=== PATIENT | male | born 1990 | race Caucasian/White ===

== ENCOUNTER 2024-01-20 22:05 | Emergency (ER) | payer MEDICAID, SELFPAY ==
[2024-01-20 22:08] VITALS: BP 136/96; PULSE 92; RESP 18; TEMP 35.9; O2SAT 97; BMI 38.5
--- NOTE | 2024-01-20 22:36 | EX.ED.DYSGE1 ---
HPI History of Present Illness Chief Complaint: Cold Sx Informant: patient Onset/Context/Timing Onset: Days (3) Context: Sudden Onset Timing: Continuous Quality: Burning Location: Abdomen Worsened by: Nothing Relieved by: Nothing Narrative Narrative: Patient presents with abdominal pain, nausea, diarrhea, and subjective fevers that has been getting worse over the past 3 days. Patient states his pain feels like a burning sensation in his lower abdomen. Patient states nothing makes it better and nothing makes it worse. Patient states he felt like he was having a fever at home but did not take his temperature. Patient also admits to a sore throat and some blurry vision. Patient admits to cough and some shortness of breath. Patient also admits to mild headache. [facility] Medical History (Updated 01/21/24 @ 00:[address] Macario Villanueva DO) Traumatic brain injury Allergy/AdvReac Type Severity Reaction Status Date / Time aspirin AdvReac Intermediate NOSEBLEEDS Verified 01/20/24 22:08 buspirone (From BuSpar) AdvReac Intermediate HALLUCINATI Verified 01/20/24 22:08 ONS acetaminophen (From Tylenol) AdvReac NOSEBLEEDS Verified 01/20/24 22:08 Surgical History Hx of eye surgery Social History Smoking Status: Unknown if ever smoked ROS ROS ED Constitutional Constitutional ED: Reports fever(s) and subjective; Denies chills Eyes Eyes: Reports blurry vision; Denies diplopia ENT ENT ED: Reports sore throat; Denies rhinorrhea Cardiovascular Cardiovascular: Reports chest pain; Denies palpitations Respiratory/Chest Respiratory/Chest: Reports cough and dyspnea Gastrointestinal Gastrointestinal: Reports abdominal pain and diarrhea; Denies nausea or vomiting Genitourinary Genitourinary ED: Denies dysuria or hematuria Musculoskeletal Musculoskeletal: Denies back pain or neck pain Integumentary Denies abscess or rash Neurologic Neurologic: Reports headache(s); Denies weakness Allergic/Immunologic Allergic/Immunologic ED: Denies mouth swelling or urticaria EXAM Physical Exam Const Vital Signs: 01/20/24 22:08 01/20/24 23:29 01/20/24 23:35 Temperature 96.6 F L Temperature Source Temporal Pulse Rate 92 68 Respiratory Rate 18 16 Respiratory Effort Normal Respiratory Pattern Normal Blood Pressure 136/96 H 122/58 H Blood Pressure Mean 109 79 Pulse Ox 97 96 Oxygen Delivery Method Room Air Room Air Positive well nourished and well developed General Appearance ED: well developed and NAD HEENT Reports moist mucous membranes Neck supple and no JVD Resp normal respiratory effort and clear to auscultation bilaterally Cardio regular rate and regular rhythm GI non-distended Palpation: soft and tender LLQ and LUQ; Negative for guarding or rebound tenderness present Neuro oriented x3, CN's II-XII intact bilaterally and no sensory deficits noted Sensorium / Orientation: alert Motor Exam: strength 5/5 throughout Psych mental status grossly normal MDM MDM MDM Narrative Medical decision making narrative: Differential diagnosis includes pneumonia, viral illness, gastroenteritis, urinary tract infection, and pyelonephritis. CBC will be obtained to assess for leukocytosis and anemia. Basic metabolic profile will be obtained to assess for electrolyte abnormality and renal function. Urinalysis will be obtained to assess for urinary tract infection or hematuria. COVID-19, influenza, and RSV PCR will be obtained to assess for viral illness. Chest x-ray will be obtained to assess for pneumonia. Lab Data Attestation: I reviewed the patient's lab results. Lab results narrative: CBC was reviewed and was within normal limits. Basic metabolic profile was reviewed and was within normal limits. Urinalysis was reviewed. There is no evidence of urinary tract infection or hematuria. COVID-19 PCR was reviewed and was negative. Influenza PCR was reviewed and was negative for influenza A and influenza B. RSV PCR was reviewed and was negative. Labs: Laboratory Results - last 24 hr 01/20/24 01/20/24 23:19 23:33 WBC 8.3 RBC 4.90 Hgb 14.0 Hct 42.6 MCV 86.9 MCH 28.6 MCHC 32.9 RDW Std Deviation 39.3 RDW Coeff of Derik 12.3 Plt Count 240 MPV 10.4 Immature Gran % (Auto) 0.400 Neut % (Auto) 44.0 L Lymph % (Auto) 34.2 Knox % (Auto) 18.3 H Eos % (Auto) 2.1 Baso % (Auto) 1.0 Absolute Neuts (auto) 3.7 Absolute Lymphs (auto) 2.83 Nucleated RBC % 0 Differential Comment SCANNED Sodium 139 Potassium 3.5 Chloride 109 H Carbon Dioxide 25.0 Anion Gap 5 BUN 11 Creatinine 1.12 Estim Creat Clear Calc 111.85 Est GFR (MDRD) Af Amer 97 Est GFR (MDRD) Non-Af 80 BUN/Creatinine Ratio 9.8 L Glucose 100 Calcium 8.4 L Urine Color Yellow Urine Clarity Clear Urine pH 6.0 Ur Specific [place] 1.025 Urine Protein Negative Urine Glucose (UA) Normal Urine Ketones Negative Urine Occult Blood Negative Urine Nitrite Negative Urine Bilirubin Negative Urine Urobilinogen Normal Ur Leukocyte Esterase Negative Urine RBC 0 SEEN Urine WBC 0 SEEN Ur Squamous Epith Cells 0 SEEN Urine Bacteria 0 SEEN Urine Mucus 0 SEEN Radiography Chest X-Ray - ED: 2 View, Read by ED Physician, Read by Radiologist and No Acute Disease Diagnostic Testing: PA and lateral chest x-ray was obtained. There are 2 views. On my independent interpretation, lung black are clear. There is normal cardiac silhouette. Bony thorax is normal. There is no acute process noted. Radiologist also interpreted the x-ray and agrees. Treatment and Re-Evaluation :: Patient was given IV fluids and Zofran. Patient was feeling better on reevaluation. Patient was advised of his findings. Patient was instructed to continue Tylenol and ibuprofen as needed for any aches or fevers. Patient was instructed to follow-up with his primary care physician in 5 to 7 days. Patient understood and was agreeable with the plan. All questions were answered. Discharge Plan Triage Chief Complaint: Cold Sx ED Provider: Macario Villanueva Dx/Rx/DC Orders Clinical Impression: Viral illness, Viral upper respiratory tract infection Instructions: ED Viral Syndrome (Adult), ED URI, Viral, No Abx (Adult) Primary Care Provider: JACKSON VELASQUEZ Referrals: JACKSON VELASQUEZ [Other] - 5-7 Days Print Language: Upper Sorbian Disposition Disposition: Home, Self Care
[2024-01-20] MEDS: Ondansetron 4 MG/2 ML Vial IV (23:25)
[2024-01-20] MEDS: 0.9% Normal Saline (1000mL) 1,000 ML 1000 ML IV (23:25)
[2024-01-20 23:26] LABS: Absolute Lymphocyte Count 2.83 X10^3/uL (0.83-4.51); Absolute Neutrophil Count 3.7 X10^3/uL (2.0-7.7); Basophil# 0.08 X10^3/uL; Eosinophil# 0.17 X10^3/uL; Eosinophils% 2.1 % (0-5); Hematocrit 42.6 % (40-54); Lymphocyte # 2.83 X10^3/ul (0.83-4.51); Lymphocyte % 34.2 % (19-41); Mean Corp Hgb Conc 32.9 g/dL (32-36); Mean Corpuscular Hgb 28.6 pg (27.0-32.0); Mean Corpuscular Volume 86.9 fL (80-94); Mean Platelet Vol. 10.4 fl (6.2-12.0); Monocyte# 1.51 X10^3/uL; Monocyte% 18.3 % (0-10); NRBC Flagged by Analyzer 0 % (0-5); Neutrophil # 3.65 X10^3/uL (2.7-7.7); POSITIVE DIFFERENTIAL YES; Platelet Count 240 K/mm3 (150-450); RBC Distribution Width CV 12.3 % (11.6-14.6); RBC Distribution Width SD 39.3 fl (35.1-43.9); White Blood Count 8.3 K/mm3 (4.4-11.0)
[2024-01-20 23:35] VITALS: BP 122/58; PULSE 68; RESP 16; O2SAT 96
[2024-01-20 23:37] LABS: Bacteria 0 SEEN /hpf (None Seen); Mucous, Urine 0 SEEN /hpf (<or=2+); Red Blood Cells-Urine 0 SEEN /hpf (0-5); Squamous Epithelial Cells - UA 0 SEEN /hpf (0-5); White Blood Cells 0 SEEN /hpf (0-5)
[2024-01-20 23:43] LABS: Anion Gap 5 (5-15); BUN 11 mg/dL (7-18); BUN/Creat Ratio 9.8 RATIO (10-20); Calcium,Total 8.4 mg/dL (8.5-10.1); Chloride 109 mmol/L (98-107); Creatinine, Serum 1.12 mg/dL (0.70-1.30); EST Glomerular Filtration Rate 80 mL/min (>60); Est Glom Filt Rate - Afr Amer 97 mL/min (>60); Estimated Creatinine Clearance 111.85 ml/min; Glucose 100 mg/dL (74-106); Potassium 3.5 mmol/L (3.5-5.1); Sodium Level 139 mmol/L (136-145)
--- NOTE | 2024-01-20 23:45 | RAD_ITS ---
INDICATION: Cough EXAMINATION/TECHNIQUE: X-RAY - XR Chest 2 Views COMPARISON: No relevant prior comparison study available FINDINGS: LINES/DEVICES: None. LUNGS: No consolidation, edema or effusion. No pneumothorax. MEDIASTINUM AND CARDIOVASCULAR STRUCTURES: Cardiac silhouette not enlarged. Central airways and mediastinal contour are unremarkable. BONES AND SOFT TISSUES: Unremarkable. RAD/Chest PA and Lateral IMPRESSION: No radiographic evidence of acute cardiopulmonary disease. Electronically Signed: Lori Shore MD at 0:31 EDT ,
[2024-01-20 23:53] LABS: Differential Indicated SCAN CRITERIA MET
[2024-01-20 23:54] LABS: Differential Comment SCANNED
[2024-01-20 23:58] LABS: Color, Urine Yellow (Yellow); Glucose, Dipstick Normal (Normal); Ketone-Dipstick Negative (Negative); Leukocyte Esterase-Dipstick Negative /ul (Negative); Nitrite-Dipstick Negative (Negative); Occult Blood-Urine Negative /ul (Negative); Protein-Dipstick Negative (Negative); Specific Gravity, Urine 1.025 (1.002-1.030); Urine Bilirubin Dipstick Negative (Negative); Urine Clarity Clear (Clear); Urine Urobilinogen Normal (Normal)
[2024-01-21 01:03] VITALS: BP 113/72; PULSE 68; RESP 15; TEMP 36.2; O2SAT 99
== END 2024-01-21 01:04 | disposition home or self-care (01) ==
PROVIDERS: Emergency Provider Emergency Medicine; Visit Provider Emergency Medicine
DX: J06.9 Acute upper respiratory infection, unspecified (principal); R19.7 Diarrhea, unspecified; R11.0 Nausea; R10.9 Unspecified abdominal pain; R51.9 Headache, unspecified; B34.9 Viral infection, unspecified
CPT/HCPCS: 71046; 80048; 81001; 85025; 87631; 96361; 96374; 99282; A4216; J2405

== ENCOUNTER 2024-10-31 22:01 | Emergency (ER) | payer MEDICAID, SELFPAY ==
[2024-10-31 22:02] VITALS: BP 130/86; PULSE 73; RESP 16; TEMP 36.7; O2SAT 98; BMI 37.8
--- NOTE | 2024-10-31 22:20 | EDS_ITS ---
HPI History of Present Illness Chief Complaint: Abscess Informant: patient Narrative Narrative: Healthy 34-year-old noticed a painful swollen area right side of his face that he thinks may be an ingrown hair. No fevers, chills, systemic symptoms. He states that he noticed it this morning, squeezed it and got a small amount of pus out of it, and it has refilled throughout the day. PFSH PFS Medical History Traumatic brain injury Home Medications ?Medication ?Instructions ?Recorded ?Last Taken ?Type mupirocin 2 % topical ointment 1 applic topical BID MA N skin 10/31/24 Unknown Rx infection #15 grams Allergy/AdvReac Type Severity Reaction Status Date / Time aspirin AdvReac Intermediate NOSEBLEEDS Verified 10/31/24 22:04 buspirone (From BuSpar) AdvReac Intermediate HALLUCINATI Verified 10/31/24 22:04 ONS acetaminophen (From Tylenol) AdvReac NOSEBLEEDS Verified 10/31/24 22:04 Surgical History Hx of eye surgery Social History Smoking Status: Never smoker ROS ROS ED Constitutional Constitutional ED: Denies chills or fever(s) Eyes Eyes: Denies change in vision ENT ENT ED: Denies ear pain or sore throat Respiratory/Chest Respiratory/Chest: Denies dyspnea Gastrointestinal Gastrointestinal: Denies nausea or vomiting Integumentary Reports abscess Neurologic Neurologic: Denies headache(s), paresthesias or weakness EXAM Physical Exam Const Vital Signs: 10/31/24 22:02 Temperature 98.0 F Temperature Source Temporal Pulse Rate 73 Respiratory Rate 16 Blood Pressure 130/86 H Blood Pressure Mean 100 Pulse Ox 98 Oxygen Delivery Method Room Air Positive well nourished and well developed Constitutional Narrative: Well-appearing in no distress General Appearance ED: well developed and NAD HEENT HEENT Narrative: [place] is shaved flush with the skin. On the right cheek within this area, there is a small tender pustule with a small amount of surrounding erythema, there is no induration or fluctuance and I do not feel a subcutaneous capsule to suggest an abscess. Eyes PERRL and EOMs intact bilaterally Neck no lymphadenopathy and supple Resp normal respiratory effort Extremity normal to inspection Neuro oriented x3, CN's II-XII intact bilaterally and no sensory deficits noted Motor Exam: strength 5/5 throughout Psych mental status grossly normal Skin Skin Narrative: No rashes. Small pustule right side of face see above. MDM MDM MDM Narrative Medical decision making narrative: Patient really wants me to perform an incision and drainage with a needle. I told him I think this is simply a pustule he thinks it is an ingrown hair, I alicia d him regardless if he was getting stuff out when he squeezed it, then he could continue doing that and use topical treatments, and we did a simple incision and drainage see the procedure note. Prescribed mupirocin and advised with regards to use. Procedures Other Procedures Procedure(s): Simple incision and drainage right facial pustule: Verbal consent obtained, timeout performed. Sterile prep with isopropanol, followed by local anesthesia with sterile freeze spray just until in local ED started to turn w alexis, and then the pustule was stabbed with a 21-gauge needle, superficially only. Scant amount of blood, no pus, gently squeezed and no other pus. Dressed with a bandage, nursing to redress with me present after patient feels prescription here. Tolerated well no complications. Discharge Plan Triage Chief Complaint: Abscess ED Provider: Junior Ovalle Dx/Rx/DC Orders Clinical Impression: Skin pustule Instructions: ED Abscess Incision And Drainage Prescriptions: New mupirocin 2 % ointment 1 applic topical BID PRN (Reason: skin infection) Qty: 15 0RF Primary Care Provider: NOT,DEFINED Referrals: Doctor,Your [Non-Staff] - 3-5 Days if not improving Print Language: Dominican Disposition Disposition: Home, Self Care
[2024-10-31 23:42] VITALS: BP 139/76; PULSE 75; RESP 18; TEMP 36.7; O2SAT 97
== END 2024-10-31 23:45 | disposition home or self-care (01) ==
PROVIDERS: Emergency Provider Emergency Medicine; Visit Provider Emergency Medicine
DX: L02.01 Cutaneous abscess of face (principal)
CPT/HCPCS: 10060; 99282

== ENCOUNTER 2024-12-04 14:13 | Emergency (ER) | payer MEDICAID, SELFPAY ==
[2024-12-04 14:16] VITALS: BP 144/89; PULSE 108; RESP 20; TEMP 36.4; O2SAT 98; BMI 36.0
--- NOTE | 2024-12-04 14:28 | EX.ED.DYSGE1 ---
HPI History of Present Illness Chief Complaint: Cold Sx Narrative Narrative: 34-year-old male past medical history of TBI presents with upper respiratory infection type symptoms that has had for the last day. He states he said nasal congestion as well as occasional cough. He usually has a nasal steroid, but is in town visiting his girlfriend and has been here for 2 weeks so he does not have it with him. He complains of sinus pressure with headache, and has had occasional diarrhea as well. His main concerns are his nasal congestion, cough, and the diarrhea. He is taking Pepto-Bismol to help with the diarrhea as well. [facility] Medical History Traumatic brain injury Home Medications ?Medication ?Instructions ?Recorded ?Last Taken ?Type mupirocin 2 % topical ointment 1 applic topical BID PRN skin 10/31/24 Unknown Rx infection #15 grams triamcinolone acetonide 55 mcg 1 spray intranasal DAILY #16.9 mL 12/04/24 Unknown Rx nasal spray aerosol (Nasacort) Allergy/AdvReac Type Severity Reaction Status Date / Time aspirin AdvReac Intermediate NOSEBLEEDS Verified 12/04/24 14:15 buspirone (From BuSpar) AdvReac Intermediate HALLUCINATI Verified 12/04/24 14:15 ONS acetaminophen (From Tylenol) AdvReac NOSEBLEEDS Verified 12/04/24 14:15 Surgical History Hx of eye surgery Social History Smoking Status: Never smoker ROS ROS ED ROS Narrative Review of systems positive for nasal congestion, occasional cough, and diarrhea. Denies fevers or chills. Does endorse occasional body aches and burning of bilateral hands and arms. Denies other symptoms. EXAM Physical Exam Narrative Exam Narrative: Afebrile. Vital signs noted. Nontoxic-appearing. HEENT examination shows mild nasal congestion with tenderness to percussion of the sinuses, but no noted purulent discharge. Cardiovascular examination reveals mild tachycardia. Abdomen soft nontender with normoactive bowel sounds. Lungs are clear to auscultation bilaterally without wheezing, no stridor of the neck. Neurological examination is nonfocal and nonlateralizing. Const Vital Signs: 12/04/24 14:16 12/04/24 15:44 Temperature 97.6 F L Temperature Source Oral Pulse Rate 108 H Respiratory Rate 20 H Respiratory Pattern Normal Blood Pressure 144/89 H Blood Pressure Mean 107 Pulse Ox 98 Oxygen Delivery Method Room Air MDM MDM MDM Narrative Medical decision making narrative: Differential diagnosis does include viral syndrome versus sinusitis versus URI. I do not feel that he requires any blood work or imaging currently. Pulse ox is 98% on room air without evidence of hypoxia. I do not feel that he needs antibiotics because he is only had 1 day of symptoms of nasal congestion and runny nose. Patient states that he usually takes the nasal steroid but does not have it with him. I told him that although it is [id number] I will write him a prescription for nasal steroid to use once daily. He can take other [id number] decongestants as well. As his symptoms have been ongoing for a day, with the suspicion of influenza, he has agreed to respiratory swab. He states the last time he was here, it was too uncomfortable for him and he would like to have it performed himself under the supervision of the RN. Should he be positive for influenza, I do feel that he is within the window to treat with antiviral medication. I reviewed his respiratory swabs and he is negative for COVID, influenza, and RSV. At this point in time, I feel he can be discharged to follow-up. Return instructions to the emergency department reviewed. I did discuss with him that antibiotics are not required at this time as his symptoms have only been ongoing for a day, and that sinusitis is usually treated after 2 weeks of symptoms with no improvement. Disposition is discharged home, in stable condition. History & Record Review Discussion w/independent historian: Patient Discharge Plan Triage Chief Complaint: Cold Sx ED Provider: Aaron Coronel Dx/Rx/DC Orders Clinical Impression: Nasal congestion, Cough Instructions: ED URI, Viral, No Abx (Adult) Prescriptions: New triamcinolone acetonide [Nasacort] 55 mcg aerosol,spray 1 spray intranasal DAILY Qty: 16.9 0RF Rx Instructions: administer into each nostril No Action mupirocin 2 % ointment 1 applic topical BID PRN (Reason: skin infection) Qty: 15 0RF Primary Care Provider: JACKSON VELASQUEZ Referrals: JACKSON VELASQUEZ [Other] - 1 Week if not improving Activity Restrictions/Additional Instructions: Follow-up with your primary care provider. Nasal steroids as directed. Print Language: [place] Islander Disposition Disposition: Home, Self Care Discharge Date/Time: 12/04/24 15:45
== END 2024-12-04 15:45 | disposition home or self-care (01) ==
PROVIDERS: Emergency Provider Emergency Medicine; Visit Provider Emergency Medicine
DX: R09.81 Nasal congestion (principal); R05.9 Cough, unspecified; R20.8 Other disturbances of skin sensation; R19.7 Diarrhea, unspecified; R51.9 Headache, unspecified; Z87.820 Personal history of traumatic brain injury
CPT/HCPCS: 87631; 99282

== ENCOUNTER 2025-07-13 14:23 | Emergency (ER) | payer MEDICAID, SELFPAY ==
[2025-07-13 14:23] VITALS: BP 124/79; PULSE 99; RESP 16; TEMP 36.1; O2SAT 98; BMI 34.6
--- OUTSIDE RECORDS SUMMARY | 2025-07-13 14:55 | XMS RPT_ITS | CCD ---
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 luminal stenosis. LAD: (Left Anterior Descending Coronary Artery) Normal size vessel, which wraps around the apex. Direct epicardial course of the mid LAD without intramyocardial extension. Gives rise to 2 diagonal branches and small septal branches. LAD Stenosis and Plaque: No evidence of plaque. No plaque or luminal stenosis. RAMUS INTERMEDIUS: Small size vessel. RI Stenosis and Plaque: No evidence of plaque. -distal segments are not well visualized. LCX: (Left Circumflex Coronary Artery) Normal size vessel, which is non-dominant. Gives rise to 1 obtuse marginal branch. LCX Stenosis and Plaque: No evidence of plaque. No plaque or luminal stenosis. -distal segments and branches are not well visualized. RCA: (Right Coronary Artery) Normal size vessel, which is dominant.. Gives rise to a conus branch, SA cathryn branch, 1 acute marginal branch. In its distal segment it bifurcates into the PDA and PV branch. RCA Stenosis and Plaque: No evidence of plaque. No plaque or luminal stenosis. -distal segments and branches are not well visualized. limited upper ABDOMEN: unremarkable Gas Tester (topogram) images: No additional findings. IMPRESSION IMPRESSION: NO EVIDENCE OF ATHEROSCLEROTIC CHANGES OR LUMINAL STENOSIS OF THE CORONARY ARTERIES -distal segments and branches are not well visualized. CAD-RADS 0: No plaque or luminal stenosis. Absence of CAD. - Overall Plaque [place]: No evidence of plaque LEFT VENTRICLE: normal size with normal systolic function; LV EF = 65 %; LV EDV 147 ml; LVmass 110 g Right ventricle: normal size and normal function on qualitative assessment. Crisis Clinician: SU Transcribe Date/Time: Mar 04 2024 8:56A Dictated by : GRETCHEN WILSON MD (more content not included)... [facility] Radiology Study observation (narrative) [facility] CTA Heart and Coronary arter ies W contrast IVOrdered By: [facility] Provider on 03-04-2024 [facility] M100.678on 01-21-2024 M100.678 SARS-CoV-2 (COVID 19 ) Negative INFLUENZA A Negative INFLUENZA B Negative RSV PCR Negative Normal [facility] Comment on above: Performed By: #### M100.678, L400.0001 # ### [facility] [address] [place], [address] Basic Metabolic Profile (BMP )on 01-20-2024 BUN/CRE 9.8 RATIO Low 10-20 [facility] Comment on above: Performed By: #### L500.2500, L100.0100 #### [facility] [address] [place], [address] CA,Total 8.4 mg/dL Low 8.5-10.1 [facility] Comment on above: Performed By: #### L500.2500, L100.0100 #### [facility] [address] [place], [address] Chloride [Moles/Vol] 109 mmol/L High 98-107 [facility] Comment on above: Performed By: #### L500.2500, L100.0100 #### [facility] [address] [place], [address] CO2 [Moles/Vol] 25.0 mmol/L Normal 21.0-32.0 [facility] Comment on above: Performed By: #### L500.2500, L100.0100 #### [facility] [address] [place], [address] Creatinine [Mass/Vol] 1.12 mg/dL Normal 0.70-1.30 [facility] Comment on above: Result Comment: The validity of the calc ulated GFR GFRAA in patients over 70 years has not been determined. Clinical correlation is essential. Performed By: #### L 500.2500, L100.0100 #### [facility] [address] [place], [address] ECRCL 111.85 ml/min Normal [facility] Comment on above: Performed By: #### L500.2500, L100.0100 #### [facility] [address] [place], [address] EST GFR - AA 97 mL/min Normal >60 [facility] Comment on above: Result Comment: GFR Warren c Performed By: #### L 500.2500, L100.0100 #### [facility] [address] [place], [address] GAP 5 Normal 5-15 [facility] Comment on above: Performed By: #### L500.2500, L100.0100 #### [facility] [address] [place], [address] GFR/1.73 sq M.predicted among non-blacks MDRD (S/P/Bld) [Vol rate/Area] 80 mL/min/{1.73_m2} Normal >60 [facility] Comment on above: Result Comment: Non- GFR Calc Performed By: #### L 500.2500, L100.0100 #### [facility] [address] [place], [address] Glucose [Mass/Vol] 100 mg/dL Normal 74-106 [facility] Comment on above: Result Comment: Fasting Glucose result f rom 100 to 125 mg/dL suggests IMPAIRED HOMEOSTASIS per A.D.A. criteria. Performed By: #### L 500.2500, L100.0100 #### [facility] [address] [place], [address] Potassium [Moles/Vol] 3.5 mmol/L Normal 3.5-5.1 [facility] Comment on above: Performed By: #### L500.2500, L100.0100 #### [facility] [address] [place], [address] Sodium [Moles/Vol] 139 mmol/L Normal 136-145 [facility] Comment on above: Performed By: #### L500.2500, L100.0100 #### [facility] [address] [place], [address] Urea nitrogen [Mass/Vol] 11 mg/dL Normal 7-18 [facility] Comment on above: Performed By: #### L500.2500, L100.0100 #### [facility] [address] [place], [address] CBC W/Diff, Automatedon 12-27 SMEAR COMMENT SCANNED Normal [facility] Comment on above: Result Comment: MONOCYTOSIS PRESENT Performed By: #### L 500.2500, L100.0100 #### [facility] [address] [place], [address] Chest PA and Lateralon 01-19 Chest PA and Lateral [facility] [address] [place] [address] Chest PA and Lateral MR#: [id number] Acct: [id number] Name: ANGEL BERKOWITZIlia RODRÍGUEZ Sr. Rep #: [id number] : 1990 M 33 From: Lori Su PCP: SHANNAN WILBURN Status: [facility] ER Study: Chest PA and Lateral Date of Exam: 01/20/24 Exam# [id number] Ordering Dr: Marcos Villanueva DO [id number] INDICATION: Cough EXAMINATION/TECHNIQUE: X-RAY - XR Chest 2 Views COMPARISON: No relevant prior comparison study available FINDINGS: LINES/DEVICES: None. LUNGS: No consolidation, edema or effusion. No pneumothorax. MEDIASTINUM AND CARDIOVASCULAR STRUCTURES: Cardiac silhouette not enlarged. Central airways and mediastinal contour are unremarkable. BONES AND SOFT TISSUES: Unremarkable. RAD/Chest PA and Lateral IMPRESSION: No radiographic evidence of acute cardiopulmonary disease. Electronically Signed: Lori Shore MD at 0:31 EDT Reading Location ID and State: [facility] / [place] Tel , Service support , CC: Dr. Marcos Villanueva DO; SHANNAN WILBURN Crisis Clinician: Signed Normal [facility] Emergency Department Summary on 01-20-2024 Emergency Department Summary [facility] Medical Records Department [address] [place] [address] Emergency Department Summary 01/20/24 MR#: [id number] Acct: [id number] Name: JEREMY BERKOWITZIC Sr. Rep #: [id number] : 1990 33 From: Marcos Villanueva DO PCP: SHANNAN WILBURN Status:REG ER Location: ED HPI History of Present Illness Chief Complaint: Cold Sx Informant: patient Onset/Context/Timing Onset: Days (3) Context: Sudden Onset Timing: Continuous Quality: Burning Location: Abdomen Worsened by: Nothing Relieved by: Nothing Narrative Narrative: Patient presents with abdominal pain, nausea, diarrhea, and subjective fevers that has been getting worse over the past 3 days. Patient states his pain feels like a burning sensation in his lower abdomen. Patient states nothing makes it better and nothing makes it worse. Patient states he felt like he was having a fever at home but did not take his temperature. Patient also admits to a sore throat and some blurry vision. Patient admits to cough and some shortness of breath. Patient also admits to mild headache. [facility] Medical History (Updated 01/21/24 @ 00:[address] Marcos Villanueva DO) Traumatic brain injury Allergy/AdvReac Type Severity Reaction Status Date / Time aspirin AdvReac Intermediate NOSEBLEEDS Verified 01/20/24 22:08 buspirone (From BuSpar) AdvReac Intermediate HALLUCINATI Verified 01/20/24 22:08 ONS acetaminophen (From Tylenol) AdvReac NOSEBLEEDS Verified 01/20/24 22:08 Surgical History Hx of eye surgery Social History Smoking Status: Unknown if ever smoked ROS ROS ED Constitutional Constitutional ED: Reports fever(s) and subjective; Denies chills Eyes Eyes: Reports blurry vision; Denies diplopia ENT ENT ED: Reports sore throat; Denies rhinorrhea Cardiovascular Cardiovascular: Reports chest pain; Denies palpitations Respiratory/Chest Respiratory/Chest: Reports cough and dyspnea Gastrointestinal Gastrointestinal: Reports abdominal pain and diarrhea; Denies nausea or vomiting Genitourinary Genitourinary ED: Denies dysuria or hematuria Musculoskeletal Musculoskeletal: Denies back pain or neck pain Integumentary Denies abscess or rash Neurologic Neurologic: Reports headache(s); Denies weakness Allergic/Immunologic Allergic/Immunologic ED: Denies mouth swelling or urticaria EXAM Physical Exam Const Vital Signs: 01/20/24 22:08 01/20/24 23:29 01/20/24 23:35 Temperature 96.6 F L Temperature Source Temporal Pulse Rate 92 68 Respiratory Rate 18 16 Respiratory Effort Normal Respiratory Pattern Normal Blood Pressure 136/96 H 122/58 H Blood Pressure Mean 109 79 Pulse Ox 97 96 Oxygen Delivery Method Room Air Room Air Positive well nourished and well developed General Appearance ED: well developed and NAD HEENT Reports moist mucous membranes Neck supple and no JVD Resp normal respiratory effort and clear to auscultation bilaterally Cardio regular rate and regular rhythm GI non-distended Palpation: soft and tender LLQ and LUQ; Negative for guarding or rebound tenderness present Neuro oriented x3, CN's II-XII intact bilaterally and no sensory deficits noted Sensorium / Orientation: alert Motor Exam: strength 5/5 throughout Psych mental status grossly normal MDM MDM MDM Narrative Medical decision making narrative: Differential diagnosis includes pneumonia, viral illness, gastroenteritis, urinary tract infection, and pyelonephritis. CBC will be obtained to assess for leukocytosis and anemia. Basic metabolic profile will be obtained to assess for electrolyte abnormality and renal function. Urinalysis will be obtained to assess for urinary tract infection or hematuria. COVID-19, influenza, and RSV PCR will be obtained to assess for viral illness. Chest x-ray will be obtained to assess for pneumonia. Lab Data Attestation: I reviewed the patient's lab results. Lab results narrative: CBC was reviewed and was within normal limits. Basic metabolic profile was reviewed and was within normal limits. Urinalysis was reviewed. There is no evidence of urinary tract infection or hematuria. COVID-19 PCR was reviewed and was negative. Influenza PCR was reviewed and was negative for influenza A and influenza B. RSV PCR was reviewed and was negative. Labs: Laboratory Results - last 24 hr 01/20/24 01/20/24 23:19 23:33 WBC 8.3 RBC 4.90 Hgb 14.0 Hct 42.6 MCV 86.9 MCH 28.6 MCHC 32.9 RDW Std Deviation 39.3 RDW Coeff of Derik 12.3 Plt Count 240 MPV 10.4 Immature Gran % (Auto) 0.400 Neut % (Auto) 44.0 L Lymph % (Auto) 34.2 Mchenry % (Auto) 18.3 H Eos % (Auto) 2.1 Baso % (Auto) 1.0 Absol (more content not included)... Normal [facility] Urinalysis, Completeon 01-19 BACTERIA 0 SEEN Normal None Seen [facility] Comment on above: Order Comment: CLEAN CATCH Performed By: #### M 100.678, L400.0001 #### [facility] [address] [place], [address] EPI,SQUAMOUS 0 SEEN Normal 0-5 [facility] Comment on above: Order Comment: CLEAN CATCH Performed By: #### M 100.678, L400.0001 #### [facility] [address] [place], [address] Mucus Ql (Urine sed) 0 SEEN Normal [facility] Comment on above: Order Comment: CLEAN CATCH Performed By: #### M 100.678, L400.0001 #### [facility] [address] [place], [address] RBC 0 SEEN Normal 0-5 [facility] Comment on above: Order Comment: CLEAN CATCH Performed By: #### M 100.678, L400.0001 #### [facility] [address] [place], [address] WBC 0 SEEN Normal 0-5 [facility] Comment on above: Order Comment: CLEAN CATCH Performed By: #### M 100.678, L400.0001 #### [facility] [address] [place], [address] STRESS ECHO TREADMILLon 02-25 Echocardiography Report: Stress [facility] Date of service: 03/07/2023 10:26:53 AM Ordering physician: BLUE ROJAS Indication: Evaluation of ischemic equivalent Technologist: Holly Paris [facility] Interpreting physician: Rashard Rothman MD PATIENT: Name: JEREMY BERKOWITZ : 1990 Age: 32 years Gender: M History of angina. Primary rhythm: sinus. Height: 170.20 cm BSA: 2.28 m Weight: 109.77 kg BMI: 37.9 kg/m Heart rate 81 bpm Blood pressure 117/77 mmHg FINDINGS: LEFT VENTRICLE Definity contrast used for endocardial border detection. Wall Motion: Rest: Stress: STRESS ECHO Peak HR 150 bpm. (80 % MPHR) Peak BP 118 mmHg/70 mmHg. CONCLUSIONS: - Exam indication: Evaluation of ischemic equivalent - Definity contrast used for endocardial border detection. - The patient has not had a prior CC echocardiographic exam for comparison. Final (Updated) Stress ECG Report: Stress [facility] Date of service: 03/07/2023 10:26:53 AM Ordering physician: BLUE ROJAS counseling specialist: Georgie Sheffield RN Interpreting physician: Rashard Rothman MD Patient name: JEREMY BERKOWITZ Age: 32 years Gender: M History of angina. Height: 170.20 cm BSA: 2.28 m Weight: 109.77 kg BMI: 37.9 kg/m Indication: Chest pain on breathing Stress ECG Conclusion: Conclusion: Abnormal Comments: Baseline ECG showed sinus rhythm was rate of 79 Patient exercised on Clyde protocol for only 6 minutes 30 seconds Patient achieved 80% of maximum predicted heart rate there was adequate workload achieved rate-pressure product 180 patient completed 7.7 METS There was noted 1.[address] segment depression in inferior lateral leads consistent with positive ECG response Impression 1. Decrease exercise tolerance for age functional class II to possibly 3 etiology unclear 2. Negative for dysrhythmias 3. Negative for hyper or hypotensive response 4. Positive for exercise-induced schema EKG changes as described above Echocardiographic data At rest the overall ejection fraction is 45 to 50% The ejection fraction improved to 55 to 60% at peak exercise with mild improvement in intractability. But no wall motion abnormality Impression normal wall motion at rest and with exercise note 2. Negative for echocardiographic evidence of ischemia 3. Abnormal electrical cardiographic response to exercise as noted above Stress ECG Summary: The patient's resting heart rate was 81 bpm and blood pressure was 117/77 mmHg. The patient exercised according to the Clyde protocol. The estimated end-exercise MET level achieved using the FRIEND equation was 6.5, which is in the bottom 10th percentile for age and sex. The estimated end-exercise MET level achieved using the previous ACSM equation was 10.2. The test was terminated due to leg fatigue and the total exercise time was 6 minutes and 29 seconds. Other symptoms during the test included leg fatigue. The maximum heart rate was 150 bpm, which is 80% of the predicted heart rate for age. Peak blood pressure was 118/70 mmHg. The double product achieved [place] [address]. Medications: Last Used ALBUTEROL INHALER VENTOLIN INHALER SYMBICORT vraylar CLONIDINE flexeril ADDERAL FLUTICASONE PROPIONATE VISTARIL PANTOPRAZOLE TOPAMAX EFFEXOR Resting ECG: Normal Sinus Rhythm Symptoms at rest: No symptoms Exercise Protocol: Clyde Stress Exercise Table: +-----+ +--------+----- -----+---+---+---+----+ Stage Speed (MPH) Grade(%) Time (min) HR SYS DANIEL METS +-----+ +--------+----- -----+---+---+---+----+ 1 1.7 10.0 3.0 127 106 68 4.2 +-----+ +--------+----- -----+---+---+---+----+ 2 2.5 12.0 6.0 144 118 70 6.1 +-----+ +--------+----- -----+---+---+---+----+ 3 3.4 14.0 9.0 150 8.3 +-----+ +--------+----- -----+---+---+---+----+ +-----+ +---------+---- ------+---+---+---+----+ Speed (MPH) Grade (%) Time (min) HR SYS DANIEL METS +-----+ +---------+---- ------+---+---+---+----+ Final 3.4 14.0 6.48 150 118 70 6.5 +-----+ +---------+---- ------+---+---+---+----+ Recovery Table: +------+---+---+---+ Stage HR SYS DANIEL +------+---+---+---+ 1 100 +------+---+---+---+ 2 113 +------+---+---+---+ 3 80 110 68 +------+---+---+---+ Stress Observations: Resting HR: 81 bpm Peak HR: 150 bpm (80% MPHR) Resting BP: 117 / 77 mmHg Peak BP: 118 / 70 mmHg To (more content not included)... [facility] CARDIOLOGY [facility] 01-29-2022 [facility] RE[facility] Normal [facility] DATE OF SERVICE: 11/2021 HISTORY OF PRESENT ILLNESS: A 31-year-old male presenting today with very pruritic rashes that appeared 1 week ago. He states that the rashes started after working at [employer]. He reports it was very busy. The yard at the [employer] was littered with all kinds of trash according to the patient. 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 He reports not seeing any poison phong or anything like that, but then shortly after he started developing very pruritic rashes. 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 He states that the rashes have already appeared prior to his landscape work. He has been applying some hydrocortisone cream, applying Calamine lotion and taking Benadryl without any improvement. He has no other complaints. Denies history of travel. Denies mosquito bites. He has no headache or dizziness. Denies neck pain. Denies chest pain or shortness of breath. ALLERGIES: ASPIRIN, TYLENOL, AND BUSPAR. PAST MEDICAL HISTORY: Reviewed. [facility] PATIENT NAME: JEREMY BERKOWITZ [address] [place] MEDICAL REC #: [id number] [place] [address] [facility] RE[facility] MEDICATIONS: None. SOCIAL, FAMILY, PAST SURGICAL HISTORY: Reviewed. PHYSICAL EXAMINATION: His blood pressure is 127/87, pulse 83, respirations 16, temperature 97.6, pulse oximetry 98%. The patient is alert in no acute distress. Head is atraumatic, normocephalic. Normal sclerae and conjunctivae. Oral cavity is moist. Neck is supple. Lungs are clear to auscultation. Regular rate and rhythm. Examination of the skin revealed erythematous papular rashes that are present on the chest, arms, and legs. No erythema migrans. No cellulitis. No blisters. No joint swelling. IMPRESSION: Nonspecific rashes. PLAN: Prednisone taper. Continue hydrocortisone cream. Stop Calamine. Take Benadryl as needed for the itching. Follow up here if not improving. Work note given for today. Renato Elizalde MD [id number] [facility] PATIENT NAME: JEREMY BERKOWITZ [address] [place] MEDICAL REC #: [id number] [place] [address] [facility] RE[facility] PHYSICIAN [facility] File#: [id number] END OF DOCUMENT / CHANGE LOG FOLLOWS Last Edited By Elec. Signed By Renato Elizalde MD, Oliver L MD #JANOL on 02/03/2022 12:10 ET on 02/03/2022 12:10 ET Revision Number - 4 Verified/Reviewed by 02/03/22 1210 RAMA [facility] PATIENT NAME: JEREMY BERKOWITZ SR [address] [place] MEDICAL REC #: [id number] [place] [address] [facility] RE[facility] PHYSICIAN [facility] Angelina 01-28-2022 EMERGENCY PHYSICIAN REPORT This is a preliminary report only, as the practitioner review and authentication has not occurred. 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 [employer] Patient: JEREMY BERKOWITZ Sex: M : 1990 Age: 31 yr Account No: [id number] Registration Date: 01:01/28/2022 Address: [address] [place] [address] Address: [place] [address] REGISTRATION ED Number: [id number] Marital Status: S Financial Class: CA[employer] TRIAGE Priority: 4 - Semi Urgent Complaint: Rash Arrival Date: 01/28/2022 01:55 Triage Date: 01/28/2022 01:56 Mode of Arrival: Ambulance WC: N Language: Ivorian Transport: [facility] [employer] BED PROVIDERS [facility] PATIENT NAME: JEREMY BERKOWITZ SR [address] [place] MEDICAL REC #: [id number] [place] [address] EMERGENCY DEPARTMENT REPORT EMERGENCY DEPARTMENT PHYSICIAN TRIAGE HISTORY ALLERGIES Allergic To: Tylenol - nasal bleeding 01/28/2022 02:02 RSS Allergic To: buspar - Abnormal Behavior 01/28/2022 02:02 RSS Allergic To: ASA - nasal bleeding 01/28/2022 02:02 RSS ILLNESS Illness: Psychiatrc Disorder-ADHD 01/28/2022 02:02 RSS Illness: Chronic Pains back 01/28/2022 02:02 RSS Illness: Depression 01/28/2022 02:02 RSS Illness: Asthma 01/28/2022 02:02 RSS Illness: Migraines 01/28/2022 02:02 RSS Illness: Bipolar Disorder 01/28/2022 02:02 RSS Illness: PTSD 01/28/2022 02:02 RSS Illness: TBI 01/28/2022 02:02 RSS Illness: COPD 01/28/2022 02:02 RSS PAST SURGERY HIST Surgery: Eye- 01/28/2022 02:02 RSS Surgery: dental 01/28/2022 02:02 RSS Surgery: Tonsillectomy 01/28/2022 02:02 RSS PAST SOCIAL HIST Social History: Behavior age appropriate 01/28/2022 02:02 RSS Social History: Communicates without difficulty 01/28/2022 02:02 RSS [facility] PATIENT NAME: JEREMY BERKOWITZ SR [address] [place] MEDICAL REC #: [id number] [place] [address] EMERGENCY DEPARTMENT REPORT EMERGENCY DEPARTMENT PHYSICIAN Social History: Lives with family or significant other 01/28/2022 02:02 RSS Social History: Alcohol - None 01/28/2022 02:02 RSS Social History: Smoker-None 01/28/2022 02:02 RSS Social History: Recreational Drugs - None 01/28/2022 02:02 RSS Social History: Denies Domestic Violence 01/28/2022 02:02 RSS Social History: Denies thoughts of self harm. 01/28/2022 02:02 RSS Social History: Have you traveled in the past month? Where NO 01/28/2022 02:02 RSS NURSING ASSESSMENT ASSESSMENT NOTES TREATMENT MEDICATIONS IV I AND O VITALS [facility] PATIENT NAME: JEREMY BERKOWITZ SR [address] [place] MEDICAL REC #: [id number] [place] [address] EMERGENCY DEPARTMENT REPORT EMERGENCY DEPARTMENT PHYSICIAN ORDERS LBE 01/28/2022 02:06 N/A Ordered: 01/28/2022 02:06 By EVELIN POOL DISCHARGE Diagnosis: LWT 0 01/28/2022 02:06 Disposition: Time: 01/28/2022 02:05 Discharge Time: 01/28/2022 02:05 Type: LBE Condition: LBE pt did not want to wait Referral: 01/28/2022 02:06 RSS PRESCRIPTIONS CHARGES SIGNATURE EVELIN SOBIJAN RN RSS [facility] PATIENT NAME: JEREMY BERKOWITZ SR [address] [place] MEDICAL REC #: [id number] [place] [address] EMERGENCY DEPARTMENT REPORT EMERGENCY DEPARTMENT PHYSICIAN Normal [facility] Angelina 11-15-2021 EMERGENCY PHYSICIAN REPORT This is a preliminary report only, as the practitioner review and authentication has not occurred. [facility] ER PHYSICIAN ASSESSMENT RECORDS : FlexChartData Event Time: 11/14/2021 19:55 Status: Signed [facility] Jeremy Berkowitz [[id number]] Attending Physician / 1990 Chart (V2b) Chart created at 11/14/2021 19:47 by Brian Reardon Chart closed at 11/14/2021 23:25 Entry in Emergency Department at 11/14/2021 17:54, departure at 11/14/2021 23:48 Patient Name: Jeremy Berkowitz Record Number: [id number] Date: 11/14/2021 19:47 Entered Department at: 11/14/2021 17:54 Patient Seen at: 11/14/2021 19:28 PCP: [facility],. Chief Complaint:HERE LAST NIGHT FOR HEADACHE. GIVEN TORADOL. SENT HOME WITH NORCO. PT TOOK MEDS AND NO RELIEF. PT STATES HEADACHE WORSE. STATES "SKIN IS BURNING." Triage Note reviewed and Initial Vital Signs reviewed. Temperature: 98.2 F (36.8 C). Pulse: 92. Respiratory Rate: 18. Blood-pressure: 128/71. Oxygen Saturation: 98%. History of Present Illness: This is a 31-year-old presents here to the ED for evaluation of headache. History of TBI as a child. History of chronic headaches previously followed by neurology with Topdavid and possibly other medications. He is taken himself off all medications. Presents here to the ED for evaluation of headache. [facility] PATIENT NAME: JEREMY BERKOWITZ SR [address] MEDICAL REC #: [id number] [place] [address] EMERGENCY DEPARTMENT REPORT EMERGENCY DEPARTMENT PHYSICIAN Was in the ED yesterday with a viral URI type picture with malaise, myalgia, and headache for the past week. Respiratory PCR was negative. Discharged home with symptomatic medications. He was prescribed Emmett. He states he is not feeling any better and presents here to the ED on that basis. Patient describes a headache as occurring while he was at work about 4 days ago. He works at [employer]. He states it was initially mild. Not think much of it. Over the past 4 days it is been constant however and gradually progressive. He has had aching in his arms and legs. Unclear if he has had any true objective fevers. Denies change in vision speech. He feels generally weak. No focal weakness. No chest pain shortness of breath. No abdominal pain vomiting. No other acute complaints. Does not report any neck stiffness. Review of Systems. All other systems reviewed and negative.. Past History, Medications, Allergies, Social History and Family History reviewed in nurses note. Medications: Reviewed RN Note. None, None Allergies: Reviewed RN Note Tylenol(nasal bleeding), buspar(Abnormal Behavior), ASA(nasal bleeding), Aspirin(*N/A), Acetaminophen(*N/A), Buspar(*N/A) Tylenol(nasal bleeding), buspar(Abnormal Behavior), ASA(nasal bleeding), Aspirin(*N/A), Acetaminophen(*N/A), Buspar(*N/A) Social History: Reviewed RN Note. Family History: Reviewed RN Note Physical Examination: General: Alert; Iej-gqr-ucgvqaueo HEENT: Normal ENT inspection. Head: Atraumatic. Eyes: PERRL; . Oropharynx / Throat: Moist mucous membranes. Normal pupillary exam. EOMI.. Neck: Supple; No meningismus Respiratory: No Resp Distress and [facility] PATIENT NAME: JEREMY BERKOWITZ SR [address] [place] MEDICAL REC #: [id number] [place] [address] EMERGENCY DEPARTMENT REPORT EMERGENCY DEPARTMENT PHYSICIAN Normal Breath Sounds Cardio-Vascular: RRR Abdomen: Non-tender and Soft Extremity: No edema and Normal Equal pulses Neurological: Alert, Oriented X3 and No Gross Weakness; Normal motor exam. Normal cranial nerve exam. Normal speech and comprehension. Skin: Warm and Dry Psychological: Mood/Affect Normal CBC W/DIFF, information as of 11/14/2021, 7:57 pm 84.4 / 14.4 / 16.2* andgt;------andlt; 292 / 41.7 / N:63.9 BASO ABS: 0.10 K/Cu Mm; BASOPHIL %: 0.3 %; EOS ABS: 0.00 K/Cu Mm; EOSINOPHIL %: 0.1 %; IMMATR GRAN ABS: 0.10 K/Cu Mm; IMMATURE GRAN %: 0.6 %; LYMPH %: 25.3 %; LYMPH ABS: 4.10 K/Cu Mm; MCHC: 34.5 Gm/Dl; MONO ABS: 1.60 K/Cu Mm; MONOCYTE %: 9.8 %; MPV: 10.7; NEUTROPHIL ABS: 10.40 K/Cu Mm; NRBC: 0.0 %; RBC: 4.94 M/Cu Mm; RDW: 12.3 BMP, information as of 11/14/2021, 7:57 pm 139 --------+--------+--------andlt; 103* Anion Gap = 9 3.9 BUN/CREA: 19; CALCIUM TOTAL: 9.8 Mg/Dl Imaging Study Obtained: CT (HEAD/BRAIN) WO CONT Imaging Study Obtained: CT HEAD/BRAIN W/O CON, Status:Signed Report Available EXAMINATION: CT HEAD/BRAIN W/O CON CLINICAL HISTORY: Headache TECHNIQUE: Serial axial images without IV contrast were obtained from the vertex to the foramen magnum. MQ: CTBWO_3 CT Radiation dose: Integrated Dose-Length Product (DLP) for this visit [facility] NIK (more content not included)... Normal [facility] > or = 60;ml/min/1.73m2on GFR/1.73 sq M.predicted among non-blacks MDRD (S/P/Bld) [Vol rate/Area] 60 mL/min/{1.73_m2} [facility] Work Phone: <1.5;mg/dLon 11-14-2021 Creatinine [Mass/Vol] 0.95 mg/dL 0.5-1.4 [facility] Work Phone: Comment on above: NOTE NEW NORMAL RANGE DUE TO REAGENT JOAN NGEPatients receiving either N-Acetylcysteine (NAC) orMetamizole prior to venipuncture, may have falsely depressedresults. 10-20;mg/mLon 11-14-2021 Urea nitrogen [Mass/Vol] 18 mg/dL 7-26 [facility] Work Phone: 12.0-16.0;g/dLon 11-14-2021 Hemoglobin (Bld) [Mass/Vol] 14.4 g/dL 13.5-17.5 [facility] Work Phone: 136-145;mmol/Jaspal 11-14-2021 Sodium [Moles/Vol] 139 mmol/L 136-145 [facility] Work Phone: 21-30;mmol/Jaspal 11-14-2021 CO2 [Moles/Vol] 28.0 mmol/L 21-32 [facility] Work Phone: 6-22on 11-14-2021 Urea nitrogen/Creatin ine [Mass ratio] 19 mg/mg 15-24 [facility] Work Phone: 74-106;mg/dLon 11-14-2021 Glucose [Mass/Vol] 103 mg/dL High 70-100 [facility] Work Phone: Comment on above: 70-100- Normal Fasting; 100-125 Impaired Fasting; greaterthan 126 on more than one result- Diabetes. ADA guidelines. Results may be falsely elevated after the administration ofSulfapyridine. Results may be falsely depressed after the administration ofSulfasalazine. 9-10.5;mg/mLon 11-14-2021 Calcium [Mass/Vol] 9.8 mg/dL 8.5-10.5 [facility] Work Phone: Comment on above: NOTE NEW NORMAL RANGE DUE TO REAGENT JOAN NGE Anion gapon 11-14-2021 Anion gap (Bld) [Moles/Vol] 9 mmol/L 01-10 [facility] Work Phone: BMPon 11-14-2021 Anion gap [Moles/Vol] 9 mmol/L Normal 01-10 [facility] Comment on above: Order Comment: Matthews: M Performed By: #### L 500.27138, L500.11313 #### [facility] [address] [place] [address] Calcium [Mass/Vol] 9.8 mg/dL Normal 8.5-10.5 [facility] Comment on above: Order Comment: Matthews: M Result Comment: NOTE NEW NORMAL RANGE DUE TO REAGENT CHANGE Performed By: #### L 500.75182, L500.80113 #### [facility] [address] [place] [address] Chloride [Moles/Vol] 102 mmol/L Normal 98-107 [facility] Comment on above: Order Comment: Matthews: M Performed By: #### L 500.24382, L500.85467 #### [facility] [place] [address] CO2 [Moles/Vol] 28.0 mmol/L Normal 21-32 [facility] Comment on above: Order Comment: Matthews: M Performed By: #### L 500.63198, L500.36349 #### [facility] [address] [place] [address] Creatinine [Mass/Vol] 0.95 mg/dL Normal 0.5-1.4 [facility] Comment on above: Order Comment: Matthews: M Result Comment: NOTE NEW NORMAL RANGE DUE TO REAGENT CHANGE Patients receiving either N-Acetylcysteine (NAC) or Metamizole prior to venipuncture, may have falsely depressed results. Performed By: #### L 500.71781, L500.66369 #### [facility] [address] [place] [address] Glucose [Mass/Vol] 103 mg/dL High 70-100 [facility] Comment on above: Order Comment: Matthews: M Result Comment: 70-1 00- Normal Fasting; 100-125 Impaired Fasting; greater than 126 on more than one result- Diabetes. ADA guidelines. Results may be falsely elevated after the administration of Sulfapyridine. Results may be falsely depressed after the administration of Sulfasalazine. Performed By: #### L 500.00167, L500.44588 #### [facility] [address] [place] [address] Potassium [Moles/Vol] 3.9 mmol/L Normal 3.5-5.1 [facility] Comment on above: Order Comment: Matthews: M Result Comment: Slig ht Hemolysis, Result may be affected. Performed By: #### L 500.14159, L500.16622 #### [facility] [address] [place] [address] Sodium [Moles/Vol] 139 mmol/L Normal 136-145 [facility] Comment on above: Order Comment: Matthews: M Performed By: #### L 500.83890, L500.38532 #### [facility] [place] [address] Urea nitrogen [Mass/Vol] 18 mg/dL Normal 7-26 [facility] Comment on above: Order Comment: Matthews: M Performed By: #### L 500.73120, L500.16448 #### [facility] [address] [place] [address] Urea nitrogen/Creatin ine [Mass ratio] 19 mg/mg Normal 15-24 [facility] Comment on above: Order Comment: Matthews: M Performed By: #### L 500.63576, L500.88059 #### [facility] [address] [place], [place] [id number] Basophils Auto (Bld) [#/Vol] on 11-14-2021 Basophils (Bld) [#/Vol] 0.10 10*3/uL 0-0.2 [facility] Work Phone: Basophils/100 WBC Auto (Bld) on 11-14-2021 Basophils/100 WBC (Bld) 0.3 % 0-2 [facility] Work Phone: CBC W/DIFFon 11-14-2021 BASO ABS 0.10 K/CU MM Normal 0-0.2 [facility] Comment on above: Order Comment: Matthews: M Performed By: #### L 200.19729 ####[facility] [id number] [place], [place] [address]Wg# [phone] Basophils/100 WBC (Bld) 0.3 % Normal 0-2 [facility] Comment on above: Order Comment: Matthews: M Performed By: #### L 200.15655 ####[facility] [id number] [place], [place] [address]An# [phone] EOS ABS 0.00 K/CU MM Normal 0-0.5 [facility] Comment on above: Order Comment: Matthews: M Performed By: #### L 200.66212 ####[address] [address]Bg# [phone] Eosinophils/100 WBC (Bld) 0.1 % Normal 0-5 [facility] Comment on above: Order Comment: Matthews: M Performed By: #### L 200.90440 ####[address] [address]Ls# [phone] Erythrocyte distribution width (RBC) [Ratio] 12.3 % Normal 11-14.5 [facility] Comment on above: Order Comment: Matthews: M Performed By: #### L 200.77512 ####[place] [id number]# [phone] Hematocrit (Bld) [Volume fraction] 41.7 % Normal 41.0-53.0 [facility] Comment on above: Order Comment: Matthews: M Performed By: #### L 200.78419 ####[address] [address]Br# [phone] Hemoglobin (Bld) [Mass/Vol] 14.4 g/dL Normal 13.5-17.5 [facility] Comment on above: Order Comment: Matthews: M Performed By: #### L 200.23777 ####[facility] [id number] [place] [address]Ae# [phone] IMMATR GRAN ABS 0.10 K/CU MM Normal Less than 2 [facility] Comment on above: Order Comment: Matthews: M Performed By: #### L 200.24527 ####[facility] [id number] [place] [address]Ok# [phone] IMMATURE GRAN % 0.6 % Normal Less than 2 [facility] Comment on above: Order Comment: Matthews: M Performed By: #### L 200.90840 ####[facility] [id number] [place], [place] [address]Rn# [phone] LYMPH ABS 4.10 K/CU MM Normal 0.9-4.4 [facility] Comment on above: Order Comment: Matthews: M Performed By: #### L 200.56027 ####[address] [address]Jw# [phone] Lymphocytes/100 WBC (Bld) 25.3 % Normal 20-40 [facility] Comment on above: Order Comment: Matthews: M Performed By: #### L 200.08105 ####[address] [address]Vt# [phone] MCHC (RBC) [Mass/Vol] 34.5 g/dL Normal 32.0-36.0 [facility] Comment on above: Order Comment: Matthews: M Performed By: #### L 200.67433 ####[address] [address]Nv# [phone] MCV (RBC) [Entitic vol] 84.4 fL Normal 80.0-99.0 [facility] Comment on above: Order Comment: Matthews: M Performed By: #### L 200.25881 ####[address] [address]Os# [phone] MONO ABS 1.60 K/CU MM High 0.1-1.1 [facility] Comment on above: Order Comment: Matthews: M Performed By: #### L 200.56528 ####[facility] [id number] [place] [address]Rg# [phone] Monocytes/100 WBC (Bld) 9.8 % Normal 2-10 [facility] Comment on above: Order Comment: Matthews: M Performed By: #### L 200.03575 ####[address] [address]Ca# [phone] NEUTROPHIL ABS 10.40 K/CU MM High 2.0-8.3 [facility] Comment on above: Order Comment: Matthews: M Performed By: #### L 200.10090 ####[facility] [id number] [place], [place] [address]Gv# [phone] Neutrophils/100 WBC (Bld) 63.9 % Normal 45-75 [facility] Comment on above: Order Comment: Matthews: M Performed By: #### L 200.39140 ####[facility] [id number] [place] [address]Kl# [phone] Nucleated RBC/100 WBC (Bld) [Ratio] 0.0 % Normal Less than 1 [facility] Comment on above: Order Comment: Matthews: M Performed By: #### L 200.65980 ####[facility] [id number] [place], [place] [address]Oo# [phone] Platelet mean volume (Bld) [Entitic vol] 10.7 fL Normal 9.4-12.4 [facility] Comment on above: Order Comment: Matthews: M Performed By: #### L 200.78426 ####[facility] [id number] [place] [address]Pc# [phone] PLT 292 K/CU MM Normal 150-450 [facility] Comment on above: Order Comment: Matthews: M Performed By: #### L 200.16254 ####[facility] [id number] [place], [place] [address]Ks# [phone] RBC 4.94 M/CU MM Normal 4.50-6.00 [facility] Comment on above: Order Comment: Matthews: M Performed By: #### L 200.76302 ####[facility] [id number] [place] [address]Du# [phone] WBC 16.2 K/CUMM High 4.5-11.0 [facility] Comment on above: Order Comment: Matthews: M Performed By: #### L 200.15744 ####[facility] [id number] [place], [place] [address]Ph# [phone] CT HEAD/BRAIN W/O CONon -2 CT HEAD/BRAIN W/O CON EXAMINATION: CT HEAD/BRAIN W/O CON CLINICAL HISTORY: Headache TECHNIQUE: Serial axial images without IV contrast were obtained from the vertex to the foramen magnum. MQ: CTBWO_3 CT Radiation dose: Integrated Dose-Length Product (DLP) for this visit = 770 mGy*cm CT Dose Reduction Employed: COMPARISON: None. RESULT: Post-operative change: None. Acute change: No evidence of an acute infarct or other acute parenchymal process. Hemorrhage: No evidence of acute intracranial hemorrhage. ECASS hemorrhagic transformation score: Not Applicable Mass Lesion / Mass Effect: There is no evidence of an intracranial mass or extraaxial fluid collection. No significant mass effect. Chronic change: None apparent. Parenchyma: There is no significant volume loss. The brain parenchyma is otherwise within normal limits for age. Ventricles: The ventricles are within normal limits of size and configuration for age. Paranasal sinuses and skull base: The visualized paranasal sinuses are grossly clear. The skull base and imaged soft tissues are unremarkable. Gas Tester (topogram) images: IMPRESSION: No acute intracranial abnormality. This report was electronically signed by Ced Lord MD 11/14/2021 10:15 PM Reported By: CED LORD MD Signed By: CED LORD MD [facility] Eosinophils Auto (Bld) [#/Vo l]on 11-14-2021 Eosinophils (Bld) [#/Vol] 0.00 10*3/uL 0-0.5 [facility] Work Phone: Eosinophils/100 WBC Auto (Bl d)on 11-14-2021 Eosinophils/100 WBC (Bld) 0.1 % 0-5 [facility] Work Phone: Erythrocyte distribution wid th Auto (RBC) [Ratio]on 11-14-2021 Erythrocyte distribution width (RBC) [Ratio] 12.3 % 11-14.5 [facility] Work Phone: GFR ESTon 11-14-2021 IF AMER Greater than 60 [facility] Comment on above: Order Comment: Matthews: Performed By: #### L 500.09519, L500.14809 ####[facility] [id number] [place], [place] [address]Cs# [phone] IF non-AFR AMER Greater than 60 Normal [facility] Comment on above: Order Comment: Matthews: M Performed By: #### L 500.62681, L500.41618 ####[facility] [id number] [place], [place] [address]Nu# [phone] Hematocrit Auto (Bld) [Volum e fraction]on 11-14-2021 Hematocrit (Bld) [Volume fraction] 41.7 % 41.0-53.0 [facility] Work Phone: Immature granulocytes Auto ( Bld) [#/Vol]on 11-14-2021 Immature granulocytes (Bld) [#/Vol] 0.10 10*3/uL Less than 2 [facility] Work Phone: Immature granulocytes/100 WB C Auto (Bld)on 11-14-2021 Immature granulocytes/100 WBC (Bld) 0.6 % Less than 2 [facility] Work Phone: Laboratory - Chemistry and C hemistry - challengeon 11-14-2021 Chloride [Moles/Vol] 102 mmol/L 98-107 [facility] Work Phone: GFR/1.73 sq M.predicted MDRD (S/P/Bld) [Vol rate/Area] 60 mL/min/{1.73_m2} [facility] Work Phone: Potassium [Moles/Vol] 3.9 mmol/L 3.5-5.1 [facility] Work Phone: Comment on above: Slight Hemolysis, Result may be affected . Lymphocytes Auto (Bld) [#/Vo l]on 11-14-2021 Lymphocytes (Bld) [#/Vol] 4.10 10*3/uL 0.9-4.4 [facility] Work Phone: Lymphocytes/100 WBC Auto (Bl d)on 11-14-2021 Lymphocytes/100 WBC (Bld) 25.3 % 20-40 [facility] Work Phone: MCHC Auto (RBC) [Mass/Vol]on 11-14-2021 MCHC (RBC) [Mass/Vol] 34.5 g/dL 32.0-36.0 [facility] Work Phone: MCV Auto (RBC) [Entitic vol] on 11-14-2021 MCV (RBC) [Entitic vol] 84.4 fL 80.0-99.0 [facility] Work Phone: Monocytes Auto (Bld) [#/Vol] on 11-14-2021 Monocytes (Bld) [#/Vol] 1.60 10*3/uL High 0.1-1.1 [facility] Work Phone: Monocytes/100 WBC Auto (Bld) on 11-14-2021 Monocytes/100 WBC (Bld) 9.8 % 2-10 [facility] Work Phone: Neutrophils Auto (Bld) [#/Vo l]on 11-14-2021 Neutrophils (Bld) [#/Vol] 10.40 10*3/uL High 2.0-8.3 [facility] Work Phone: Neutrophils/100 WBC Auto (Bl d)on 11-14-2021 Neutrophils/100 WBC (Bld) 63.9 % 45-75 [facility] Work Phone: Nucleated RBC/100 WBC Auto ( Bld) [Ratio]on 11-14-2021 Nucleated RBC/100 WBC (Bld) [Ratio] 0.0 % Less than 1 [facility] Work Phone: Platelet mean volume Auto (B ld) [Entitic vol]on 11-14-2021 Platelet mean volume (Bld) [Entitic vol] 10.7 fL 9.4-12.4 [facility] Work Phone: Platelets Auto (Bld) [#/Vol] on 11-14-2021 Platelets (Bld) [#/Vol] 292 10*3/uL 150-450 [facility] Work Phone: RBC Auto (Bld) [#/Vol]on RBC (Bld) [#/Vol] 4.94 10*6/uL 4.50-6.00 [facility] Work Phone: WBC Auto (Bld) [#/Vol]on WBC (Bld) [#/Vol] 16.2 10*3/uL High 4.5-11.0 [facility] Work Phone: CHEST PA/AP AND LATERALon CHEST PA/AP AND LATERAL Chest PA and Lateral Reason for exam: cough, sob Findings: The cardiomediastinal silhouette is within normal limits. No focal parenchymal consolidation is seen. There is no pneumothorax or pleural effusion. No acute osseous abnormality is seen. IMPRESSION: 1. No radiographic evidence of significant cardiopulmonary disease. This report was electronically signed by Dora Kay MD 11/13/2021 5:50 PM Reported By: DORA KAY Signed By: DORA KAY [facility] 11-13-2021 EMERGENCY PHYSICIAN REPORT This is a preliminary report only, as the practitioner review and authentication has not occurred. [facility] ER PHYSICIAN ASSESSMENT RECORDS : FlexChartData Event Time: 11/13/2021 18:05 Status: Signed [facility] Jeremy Berkowitz [[id number]] Mid-Level Chart (V2b) / 1990 Chart created at 11/13/2021 17:59 by Sanket Meier Chart closed at 11/13/2021 18:02 Entry in Emergency Department at 11/13/2021 17:02, departure at 11/13/2021 18:41 Patient Name: Jeremy Berkowitz Record Number: [id number] Date: 11/13/2021 17:59 Entered Department at: 11/13/2021 17:02 Patient Seen at: 11/13/2021 17:27 Historian: Patient PCP: SHANNAN WILBURN Chief Complaint:c/o headache x3 days, body aches, productive cough, dx URI last Monday Pulse: 97. Respiratory Rate: 20. Blood-pressure: 113/75. Oxygen Saturation: 96%. History of Present Illness: I agree with triage notes. Patient was at [facility] and treated symptomatically, no antibiotic therapy at that time. He does have asthma. He is compliant with his inhaler. HPI Elements: Onset:(3 days); Timing: Gradual; Location: Upper respiratory, generalized; Quality:(Cough, congestion, myalgias); Severity: maximum Moderate, now Moderate; Context: At Rest, but not Sick Contacts; Exacerbated by: Nothing; Alleviated by: Nothing Associated symptoms: None aside from that described [facility] PATIENT NAME: JEREMY BERKOWITZ SR [address] MEDICAL REC #: [id number] [place] [address] EMERGENCY DEPARTMENT REPORT EMERGENCY DEPARTMENT PHYSICIAN above. Review of Systems. Constitutional: negative for Fever Eyes: negative for Eye Pain Ear/Nose/Throat: negative for Sore Throat Cardio-Vascular: negative for Chest Pain Respiratory: positive for Cough, negative for Dyspnea GI: negative for Abd. Pain, Diarrhea, Nausea or Vomiting : negative for Dysuria Musculo-Skeletal: positive for Myalgias, negative for Back Pain, Generalized Neurological: negative for Headache Hem/Endo: negative for Bleeding Immunology: negative for Joint Pain All other systems reviewed and negative.. Past History, Medications, Allergies, Social History and Family History reviewed in nurses note. Medications: Reviewed RN Note. symbicort, ALBUTEROL SULFATE 0.5% SOLUTION FOR INHALATION - INH Allergies: Reviewed RN Note Tylenol(nasal bleeding), buspar(Abnormal Behavior), ASA(nasal bleeding), Aspirin(*N/A), Acetaminophen(*N/A), Buspar(*N/A) Social History: Reviewed RN Note. Family History: Reviewed RN Note Physical Examination: General: Alert and Well Developed HEENT: Normal ENT inspection. Eyes: Lids Normal; . Oropharynx / Throat: Normal Pharynx. Neck: No Lymphadenopathy, No Meningismus and Supple Respiratory: No Resp Distress; Few scattered wheezes, no respiratory distress Cardio-Vascular: No murmur, No rub and RRR Abdomen: Non-tender and Soft Back: No CVA tenderness, No Midline Tenderness and Non-tender Extremity: No edema Neurological: No Gross Weakness Skin: No rash, No Petechiae, Warm and Dry Psychological: Mood/Affect Normal and Normal Memory/Judgment Radiology: Interpreted by Radiologist. [facility] PATIENT NAME: JEREMY BERKOWITZ [address] MEDICAL REC #: [id number] [place] [address] EMERGENCY DEPARTMENT REPORT EMERGENCY DEPARTMENT PHYSICIAN Medical Decision Making I agree with triage notes. Patient was at [facility] and treated symptomatically, no antibiotic therapy at that time. He does have asthma. He is compliant with his inhaler. Patient does have a few scattered wheezes on exam, stable vitals, no acute respiratory distress. Chest x-ray identifies no pneumonia. Full Covid panel has been obtained, results are pending In the interim, treated supportively with steroid, antibiotic, pain medication Additional Information: Discussed Results, Diagnosis and Follow-Up with Patient. Prescription given. Clinical Impression: 1. Bronchitis 2. Generalized myalgias Disposition: Discharged *Home. Condition: Good Direct patient care supervision and electronic documentation review by Saravanan Marsh on 11/16/2021 01:10. : FlexChartData Event Time: 11/16/2021 01:40 Status: Signed [facility] Jeremy Berkowitz [[id number]] Attending Physician / / 1990 Chart (V2b) Chart created at 11/16/2021 01:09 by Saravanan Marsh Chart closed at 11/16/2021 01:09 Entry in Emergency Department at 11/13/2021 17:02, [facility] PATIENT NAME: JREEMY BERKOWITZ [address] MEDICAL REC #: [id number] [place] [address] EMERGENCY DEPARTMENT REPORT EMERGENCY DEPARTMEN (more content not included)... Normal [facility] RESP/COVID PCRon 11-13-2021 ADENOVIRUS PCR Not detected Normal NOT DETECTD [facility] Comment on above: Order Comment: Matthews: M Performed By: #### L [id number] ####[facility] [id number] [place], [place] [address]Gt# [phone] B PARA PCR Not detected Normal NOT DETECTD [facility] Comment on above: Order Comment: Matthews: M Performed By: #### L 770.75697 ####[facility] [id number] [place] [place], [place] [address]Jw# [phone] B PERTUSSIS PCR Not detected Normal NOT DETECTD [facility] Comment on above: Order Comment: Matthews: M Performed By: #### L 770.23008 ####[facility] [id number] [place], [place] [address]Du# [phone] C PNEUMONIA PCR Not detected Normal NOT DETECTD [facility] Comment on above: Order Comment: Matthews: M Performed By: #### L 770.31963 ####[facility] [id number] [place], [place] [address]Yh# [phone] CORONAVIR 229E Not detected Normal NOT DETECTD [facility] Comment on above: Order Comment: Matthews: M Performed By: #### L 770.26633 ####[facility] [id number] [place], [place] [address]Zw# [phone] CORONAVIR HKU1 Not detected Normal NOT DETECTD [facility] Comment on above: Order Comment: Matthews: M Performed By: #### L 770.49132 ####[facility] [id number] [place] [address]Er# [phone] CORONAVIR NL63 Not detected Normal NOT DETECTD [facility] Comment on above: Order Comment: Matthews: M Performed By: #### L 770.81957 ####[address] [address]Rz# [phone] CORONAVIR OC43 Not detected Normal NOT DETECTD [facility] Comment on above: Order Comment: Matthews: M Performed By: #### L 770.72706 ####[facility] [id number] [place] [address]Me# [phone] FLU A NO SUBTYP Not detected Normal NOT DETECTD [facility] Comment on above: Order Comment: Matthews: M Performed By: #### L 770.13616 ####[address] [address]Xx# [phone] HUMAN METAPNEUM Not detected Normal NOT DETECTD [facility] Comment on above: Order Comment: Matthews: M Performed By: #### L 770.52066 ####[facility] [id number] [place] [address]Oa# [phone] INFLUENZA A H1 Not detected Normal NOT DETECTD [facility] Comment on above: Order Comment: Matthews: M Performed By: #### L 770.85350 ####[facility] [id number] [place] [address]Up# [phone] INFLUENZA A H3 Not detected Normal NOT DETECTD [facility] Comment on above: Order Comment: Matthews: M Performed By: #### L 770.65539 ####[facility] [id number] [place], [place] [address]Lh# [phone] INFLUENZA B PCR Not detected Normal NOT DETECTD [facility] Comment on above: Order Comment: Matthews: M Performed By: #### L 770.00143 ####[facility] [id number] [place], [place] [address]Gm# [phone] M PNEUMONIA PCR Not detected Normal NOT DETECTD [facility] Comment on above: Order Comment: Matthews: M Performed By: #### L 770.69372 ####[facility] [id number] [place], [place] [address]Ig# [phone] PARAINFLUENZA 1 Not detected Normal NOT DETECTD [facility] Comment on above: Order Comment: Matthews: M Performed By: #### L 770.70858 ####[facility] [id number] [place], [place] [address]Ea# [phone] PARAINFLUENZA 2 Not detected Normal NOT DETECTD [facility] Comment on above: Order Comment: Matthews: M Performed By: #### L 770.75561 ####[facility] [id number] [place] [address]Jf# [phone] PARAINFLUENZA 3 Not detected Normal NOT DETECTD [facility] Comment on above: Order Comment: Matthews: M Performed By: #### L 770.62974 ####[facility] [id number] [place], [place] [address]Ca# [phone] PARAINFLUENZA 4 Not detected Normal NOT DETECTD [facility] Comment on above: Order Comment: Matthews: M Performed By: #### L 770.43343 ####[facility] [id number] [place], [place] [address]Tn# [phone] RHINO/ENTERO Not detected Normal NOT DETECTD [facility] Comment on above: Order Comment: Matthews: M Performed By: #### L 770.02761 ####[facility] [id number] [place], [place] [address]Gt# [phone] RSV Not detected Normal NOT DETECTD [facility] Comment on above: Order Comment: Matthews: M Performed By: #### L 770.18827 ####[facility] [id number] [place], [place] [address]Zm# [phone] SARS-CoV-2 (COVID-19) RNA SEBAS+probe Ql (Unsp spec) Not detected Normal NOT DETECTD [facility] Comment on above: Order Comment: Matthews: M Result Comment: RESU LTS CALLED TO [facility]/ED AT 1903 11/13/21 BY KIMBERLI HOWARD Negative results do not preclude SARS-CoV-2 infection and should not be used as the sole basis for treatment or other patient management decisions. Negative results must be combined with clinical observation, patient history, and epidemiological information. This test was performed by PCR. Performed By: #### L 770.17852 ####[facility] [id number] [place], [place] [address]Uo# [phone] SCon 11-05-2021 [facility] REPORT Normal [facility] DATE OF SERVICE: 06/2022 HISTORY OF PRESENT ILLNESS: A 31-year-old male presenting today with cough, sore throat, vomiting, stuffy nose for the last 2 days. He also complains of diarrhea. His boss sent him here for further evaluation and treatment. He is not concerned of COVID-19. He denies headaches and dizziness. Denies chest pain and shortness of breath. Denies abdominal pain. ALLERGIES: TYLENOL, ASPIRIN, and BUSPAR. PAST MEDICAL HISTORY: ADD, arthritis, asthma, COPD, pneumonia, high blood pressure. HOME MEDICATIONS: None. SOCIAL, FAMILY, PAST SURGICAL HISTORY: Reviewed. PHYSICAL EXAMINATION: Blood pressure is 120/85, pulse is 81, respirations are 18, temperature is 97.5, pulse oximetry is 98%. The patient is alert, oriented, in no acute distress. Head is atraumatic, normocephalic. Pupils equal, round, reactive. Extraocular muscles are intact. Tympanic membranes are normal. Nose: Clear nasal drainage. Oral cavity is moist. No oropharyngeal erythema or exudates. Uvula is at [facility] PATIENT NAME: JEREMY BERKOWITZ [address] MEDICAL REC #: [id number] [place] [address] [facility] REPORT [facility] PH[facility]ICIAN midline. Neck is supple. Lungs are clear to auscultation. Regular rate and rhythm. Skin warm, dry. No clubbing, cyanosis, or edema. IMPRESSION: Viral upper respiratory infection. PLAN: Benzonatate and Flonase. Patient was instructed to return if not improving. Work note given. Renato Elizalde MD [id number] [facility] File#: [id number] END OF DOCUMENT / CHANGE LOG FOLLOWS Last Edited By Elec. Signed By Renato Elizalde MD #Renato Fairbanks MD on 11/11/2021 10:52 ET on 11/11/2021 10:52 ET Revision Number - 2 Verified/Reviewed by [facility] PATIENT NAME: JEREMY BERKOWITZ [address] MEDICAL REC #: [id number] [place] [id number] [facility] RE[facility]ICIAN 11/11/21 1052 JANOL [facility] PATIENT NAME: JEREMY BERKOWITZ [address] MEDICAL REC #: [id number] [place] [address] [facility] RE[facility] PHYSIC[facility] PFSRon 09-10-2021 PFSR The spirometry shows normal FVC, FEV1 and FE1/FVC. After bronchodilator there is no improvement seen. The flow volume study shows normal airflow. .br.brImpression : The study is normal and there is no significant change after bronchodilator. CC: Magda Wilburn Verified/Reviewed by 09/10/21 Mahsa RENE [facility] PATIENT NAME: JEREMY BERKOWITZ [address] MEDICAL REC. #: [id number] [place] [address] ACCOUNT NUM: [id number] ADMIT DATE: DISCHARGE DATE: PULMONARY FUNCTION SCREEN REPORT ATTENDING PHY: Shannan Wilburn [facility] PULMONARY FUNCTION SMART RPT [facility] Angelina 08-19-2021 EMERGENCY PHYSICIAN REPORT This is a preliminary report only, as the practitioner review and authentication has not occurred. [facility] ER PHYSICIAN ASSESSMENT RECORDS : FlexChartData Event Time: 08/19/2021 21:30 Status: Signed [facility] Jeremy Berkowitz [[id number]] Mid-Level Chart (V2b) / 1990 Chart created at 08/19/2021 21:21 by Sanket Meier Chart closed at 08/19/2021 21:24 Entry in Emergency Department at 08/19/2021 18:30, departure at 08/19/2021 21:39 Patient Name: Jeremy Berkowitz Record Number: [id number] Date: 08/19/2021 21:21 Entered Department at: 08/19/2021 18:30 Patient Seen at: 08/19/2021 20:27 Historian: Patient PCP: [facility],. Chief Complaint:pt comes in with abscess on groin area that was drained a 2 days ago, but still draining Pulse: 96. Respiratory Rate: 16. Blood-pressure: 139/80. Oxygen Saturation: 99%. History of Present Illness: Patient has a right scrotal abscess. He was seen here previously. He was a lot more hot and inflamed at that time, he had a needle aspiration. He still continue to have drainage and tenderness with it he is compliant with his antibiotics HPI Elements: Onset:(Past several days); Timing: Gradual; Location: Right scrotum; Quality: Aching; Severity: maximum Mild, now Mild; Context: At Rest; Exacerbated by: Palpation; Alleviated by: Nothing Associated symptoms: None aside from the scribed above. [facility] PATIENT NAME: JEREMY BERKOWITZ SR [address] MEDICAL REC #: [id number] [place] [address] EMERGENCY DEPARTMENT REPORT EMERGENCY DEPARTMENT PHYSICIAN Review of Systems. Constitutional: negative for Fever Eyes: negative for Eye Pain Ear/Nose/Throat: negative for Sore Throat Cardio-Vascular: negative for Chest Pain Skin: Right scrotal pain, swelling Respiratory: negative for Dyspnea GI: negative for Abd. Pain : negative for Dysuria Musculo-Skeletal: negative for Back Pain Neurological: negative for Headache Hem/Endo: negative for Bleeding Immunology: negative for Joint Pain All other systems reviewed and negative.. Past History, Medications, Allergies, Social History and Family History reviewed in nurses note. Medications: Reviewed RN Note. Allergies: Reviewed RN Note Tylenol(nasal bleeding), buspar(Abnormal Behavior), ASA(nasal bleeding), Aspirin(*N/A), Acetaminophen(*N/A), Buspar(*N/A) Social History: Reviewed RN Note. Family History: Reviewed RN Note Physical Examination: General: Alert and Well Developed HEENT: Normal ENT inspection. Eyes: Lids Normal; . Oropharynx / Throat: Normal Pharynx. Neck: No Lymphadenopathy, No Meningismus and Supple Respiratory: No Resp Distress and Normal Breath Sounds Cardio-Vascular: No murmur, No rub and RRR Abdomen: Non-tender and Soft Back: No CVA tenderness, No Midline Tenderness and Non-tender Extremity: No edema Neurological: No Gross Weakness Skin: No rash, No Petechiae, Warm and Dry; Scrotal erythema right side towards the inguinal region just lateral to the base of the penis. Small amount of purulent drainage Psychological: Mood/Affect Normal and Normal Memory/Judgment Medical Decision Making Patient has a right scrotal abscess. He was seen here previously. He was a lot more hot and inflamed at [facility] PATIENT NAME: JEREMY BERKOWITZ SR [address] MEDICAL REC #: [id number] [place] [address] EMERGENCY DEPARTMENT REPORT EMERGENCY DEPARTMENT PHYSICIAN that time, he had a needle aspiration. He still continue to have drainage and tenderness with it he is compliant with his antibiotics Exam as described above, anesthetized with lidocaine 2% with epinephrine for adequate anesthesia. Opened further with combination of sharp and blunt dissection draining out more purulent material. It was then copiously irrigated with saline. Loosely packed, dressed. Tolerated well Additional Information: Discussed Results, Diagnosis and Follow-Up with Patient. Clinical Impression: 1. Skin abscess sized and drained Disposition: Discharged *Home. Condition: Good Direct patient care supervision and electronic documentation review by Marcus Donovan on 08/20/2021 17:05. : Discharge Report Event Time: 08/19/2021 21:25 : FlexChartData Event Time: 08/19/2021 21:50 Status: Signed [facility] Jeremy Shieldsy [[id number]] Attending Physician 1990 Chart (V2b) Chart created at 08/19/2021 21:19 by Marcus Donovan Chart closed at 08/19/2021 21:19 Entry in Emergency Department at 08/19/2021 18:30, departure at 08/19/2021 21:39 Patient Name: Jeremy Berkowitz Record Number: [id number] Date: [facility] MEDICA (more content not included)... Normal [facility] 08-16-2021 EMERGENCY PHYSICIAN REPORT This is a preliminary report only, as the practitioner review and authentication has not occurred. [facility] ER PHYSICIAN ASSESSMENT RECORDS : FlexChartData Event Time: 08/16/2021 12:50 Status: Signed [facility] Jeremy Berkowitz [[id number]] Mid-Level Chart (V2b) 1990 Chart created at 08/16/2021 12:22 by Silvestre Eddy Chart closed at 08/16/2021 12:47 Entry in Emergency Department at 08/16/2021 11:52, departure at 08/16/2021 13:25 Patient Name: Jeremy Berkowitz Record Number: [id number] Date: 08/16/2021 12:22 Entered Department at: 08/16/2021 11:52 Patient Seen at: 08/16/2021 12:22 Historian: Patient PCP: Filiberto Chowdhury Chief Complaint:C/O ABSCESS IN GROIN AREA, PATIENT STATES HAD PURULENT FLUID COME OUT OF IT. PATIENT STATES NO FEVER. Temperature: 97.8 F (36.6 C). Pulse: 62. Respiratory Rate: 16. Blood-pressure: 135/71. Oxygen Saturation: 98%. History of Present Illness: 31-Year-old male complains of right scrotal swelling and pain for 3 days. He states he has taken some photos. It started as a smaller bump and then got bigger and has drained a little bit. Nonetheless it is no longer draining and it is enlarging. It is painful. No fever or chills. Review of Systems. Constitutional: negative for Chills or Fever Musculo-Skeletal: negative for Myalgias [facility] PATIENT NAME: JEREMY BERKOWITZ SR [address] MEDICAL REC #: [id number] [place] [address] EMERGENCY DEPARTMENT REPORT EMERGENCY DEPARTMENT PHYSICIAN Past History, Medications, Allergies, Social History and Family History reviewed in nurses note. Medications: Reviewed RN Note. None, verified 08/16/21 Allergies: Reviewed RN Note Tylenol(nasal bleeding), buspar(Abnormal Behavior), ASA(nasal bleeding), Aspirin(*N/A), Acetaminophen(*N/A), Buspar(*N/A) Social History: Reviewed RN Note. Family History: Reviewed RN Note Physical Examination: General: Alert and Well Developed; Pleasant overweight 31-year-old white male in no acute distress HEENT: Head: Atraumatic. Eyes: negative for Icteric Sclera; PERRL; EOMI. Neck: Supple; moves head and neck freely Abdomen: Non-tender and Soft Neurological: Alert, Oriented X3 Psychological: Mood/Affect Normal and Normal Memory/Judgment (male): Circumcised male genitalia. He has shaved the pubic and scrotal regions. He has local swelling of the right anterior proximal scrotum. This is tender and indurated and there is questionable central fluctuant. No active drainage. There are a few nicks in the scrotal skin bilaterally including centrally in this edematous region. There is some right inguinal tenderness. His habitus somewhat limits anatomical palpation. Do not feel distinct nodes here but he is tender through the inguinal node region on the right. No inguinal masses. Testes are within normal limits bilaterally and nontender. No inguinal canal tenderness or masses, no hernias evident Medical Decision Making Patient has right scrotal cellulitis secondary to his shaving/grooming of the genital region. I recommended that he stop shaving the region. Tub soaks 20 [facility] PATIENT NAME: JEREMY BERKOWITZ SR [address] MEDICAL REC #: [id number] [place] [address] EMERGENCY DEPARTMENT REPORT EMERGENCY DEPARTMENT PHYSICIAN minutes 4 times a day. Today needle aspiration which showed no underlying pus/abscess, no incision and drainage indicated today. Bactrim for 1 week. Emmett No. 8 tablets as needed Physician Performed Procedures Procedure: Needle aspiration right scrotal cellulitis. After verbal consent gave local anesthesia lidocaine 2% with epinephrine to the central portion of this indurated region given excellent local anesthesia. Then using number 18-gauge needle and performed an aspiration with 3 redirections. There is no underlying pus. No evidence of underlying abscess. Sterile gauze taped over the injection site. Good hemostasis. He tolerated procedure well. Additional Information: Discussed Results, Diagnosis and Follow-Up with Patient. Prescription given (Bactrim, naproxen). Clinical Impression: 1. Right scrotal cellulitis 2. Procedure: Needle aspiration Disposition: Discharged *Home. Condition: Good Direct patient care supervision and electronic documentation review by Marcus Donovan on 08/18/2021 11:05. : FlexChartData Event Time: 08/16/2021 13:30 Status: Signed [facility] Jeremy Berkowitz [[id number]] Attending Physician 1990 Chart (V2b) Chart created at 08/16/2021 12:58 by Marcus Donovan [facility] PATIENT NAME: ANGEL BERKOWITZ (more content not included)... [facility] [place] 05-04-2021 [facility] [place] DATE OF SERVICE: 02/2021 HISTORY OF PRESENT ILLNESS: Patient is a 30-year-old male with a past medical history of ADD, anemia, arthritis, asthma, high blood pressure, pneumonia, mental health illness who presents for cough, vomiting, diarrhea, right eye matted shut. Patient said it started yesterday. It is a nonproductive cough. States he vomited once yesterday but has not vomited at all today. He says that he has a sore throat as well. No ear pain. No diarrhea. He also states he needs albuterol for his nebulizer and inhaler refill because he could not get into his primary care doctor. He says he has had no known exposure to COVID, and he is not vaccinated. REVIEW OF SYSTEMS: Otherwise negative unless stated above. ALLERGIES: TYLENOL, BUSPAR, and ASPIRIN. MEDICATIONS: 1. Albuterol. 2. Symbicort. PHYSICAL EXAMINATION: Vitals: Blood pressure is 102/86, pulse is 99, respirations 18, temperature is 98.2, pulse oximetry is 97%. Ears are normal. [facility] PATIENT NAME: WOOJEREMY Hawkins [address] [facility] [address] MEDICAL REC #: [id number] [place] [address] [facility] PHYSICIAN Mouth: Oropharynx is slightly erythematous. Neck: No lymphadenopathy. Eyes: There is an erythematous conjunctiva on the right eye, some drainage in the tear duct which is green. Heart: Regular rate and rhythm. Lungs: Clear to auscultation bilaterally. DIAGNOSES: 1. Right eye conjunctivitis. 2. Cough. PLAN: Patient was given Polymyxin B for his eyes, Bromfed, and albuterol inhaler and nebulizer refills. Patient was discharged to follow up with his primary care doctor in 1 to 2 weeks. Gabriela Huffman MD ED/[id number] [facility] File#: [id number] [facility] PATIENT NAME: WOOJEREMY Hawkins SR [address] MEDICAL REC #: [id number] [place] [address] [facility] PHYSICIAN END OF DOCUMENT / CHANGE LOG FOLLOWS Last Edited By Elec. Signed By Gabriela Huffman MD #Gabriela Lowe MD #ZACH on 05/04/2021 17:30 ET on 05/04/2021 17:30 ET Revision Number - 2 Verified/Reviewed by 05/04/21 1730 ZACH [facility] PATIENT NAME: JEREMY BERKOWITZ SR [address] [facility] [address] MEDICAL REC #: [id number] [place] [address] [facility] PH[facility]ICIAN Normal [facility] 04-22-2021 EMERGENCY PHYSICIAN REPORT This is a preliminary report only, as the practitioner review and authentication has not occurred. [facility] ER PHYSICIAN ASSESSMENT RECORDS : FlexChartData Event Time: 04/21/2021 22:05 RTD Status: Signed [facility] Jeremy Berkowitz [[id number]] Mid-Level Chart (V2b) / / 1990 Chart created at 04/21/2021 21:55 by Earl Russell Chart closed at 04/21/2021 22:03 Entry in Emergency Department at 04/21/2021 18:52, departure at 04/21/2021 22:17 Patient Name: Jeremy Berkowitz Record Number: [id number] Date: 04/21/2021 21:55 Entered Department at: 04/21/2021 18:52 Patient Seen at: 04/21/2021 22:00 Historian: Patient PCP: Filiberto Chowdhury Chief Complaint:Rash Nursing triage/initial assessment reviewed and confirmed and Initial Vital Signs reviewed. Temperature: 98.3 F (36.8 C). Pulse: 109. Respiratory Rate: 20. Blood-pressure: 138/67. Oxygen Saturation: 100% room air. History of Present Illness: Patient is a 30-year-old male presenting with a pruritic and burning rash to his left back that is now spreading across his chest starting this evening after cleaning up a romina area in his house. Patient denies new soaps and laundry detergents. Denies new medications. Denies changes in diet. Denies new pets in the house. Patient denies swelling of the lips, tongue, and throat. Denies chest tightness and [facility] PATIENT NAME: JEREMY BERKOWITZ SR [address] [facility] [address] MEDICAL REC #: [id number] [place] [id number] EMERGENCY DEPARTMENT REPORT EMERGENCY DEPARTMENT PHYSICIAN shortness of breath. Denies recent systemic symptoms including fevers/chills. Review of Systems. Skin: positive for Itch and Rash All other systems reviewed and negative.. Past History, Medications, Allergies, Social History and Family History reviewed in nurses note. Medications: Reviewed RN Note. None Allergies: Reviewed RN Note Tylenol(nasal bleeding), buspar(Abnormal Behavior), ASA(nasal bleeding), Aspirin(*N/A), Acetaminophen(*N/A), Buspar(*N/A) Social History: Reviewed RN Note. Family History: Reviewed RN Note Physical Examination: General: Alert; Patient appears well bedside, nontoxic-appearing HEENT: Normal ENT inspection. Eyes: Lids Normal; . Oropharynx / Throat: Normal Pharynx. Normocephalic, PERRLA, EOM intact without nystagmus, TMs intact bilaterally without erythema or effusion, nares patent bilaterally, oral mucosa moist without lesion, oropharynx nonerythematous and nonexudative with no signs of airway compromise, no lip or tongue swelling noted . Neck: No Lymphadenopathy, No Meningismus and Supple; Neck supple, trachea midline, no anterior or posterior cervical lymphadenopathy, no meningismus, no signs of Ludwigs angina Respiratory: No Resp Distress, Chest non-tender and Normal Breath Sounds; Lungs clear to auscultation without crackle, wheeze, or stridor bilaterally Cardio-Vascular: No murmur, No rub and RRR Abdomen: Normal Bowel Sounds, No Organomegaly, Non-tender and Soft Back: No CVA tenderness, No Midline Tenderness and Non-tender Extremity: No Calf Tenderness, No edema and Normal Equal pulses; Full range of motion and 5 out of 5 strength in upper and lower [facility] PATIENT NAME: JEREMY BERKOWITZ SR [address] [facility] [address] MEDICAL REC #: [id number] [place] [address] EMERGENCY DEPARTMENT REPORT EMERGENCY DEPARTMENT PHYSICIAN extremities bilaterally Neurological: Alert, Oriented X3 and No Gross Weakness; Cranial nerves II through XII grossly intact, sensation to light touch intact in upper and lower extremities bilaterally, normal gait, normal [id number] and heel-to-toe exams, reflexes 2+ in knees bilaterally, no pronator drift, no gross weakness appreciated on exam Skin: No Petechiae, Warm and Dry; Urticarial-like rash noted to left side of back spreading across chest, no signs of cellulitis or abscess formation, no petechiae Psychological: Mood/Affect Normal and Normal Memory/Judgment Medical Decision Making History and physical exam as above. Vitals noted. Patient was given Benadryl, Pepcid, Solu-Medrol, and 1 L normal saline IV. This resulted in significant improvement in the suspected urticarial rash. I suspect the patient had an allergic reaction to the dust he was cleaning in his home. Upon reevaluation, there are no signs of airway compromise or hypoxia. Patient was monitored here in the ED for over 3 hours and the rash continues to dissipate. Patient will be prescribed a prednisone taper for home. He is instructed to follow-up with his PCP and dermatology referral within 2 to 3 days for reevaluation and to return to the emergency department if any new or worsening symptoms develop. Patient is agreeable with said plan. Vitals stable at time of discharge. Clin (more content not included)... [facility] 04-21-2021 EMERGENCY PHYSICIAN REPORT This is a preliminary report only, as the practitioner review and authentication has not occurred. 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 STATES LOW BP @ HOME Arrival Date: 04/21/2021 13:43 Triage Date: 04/21/2021 14:25 Mode of Arrival: *Privately Owned Vehicle WC: N Language: Ivorian Transport: Ambulatory/Walk In BED PROVIDERS [facility] PATIENT NAME: JEREMY BERKOWITZ SR [address] [facility] [address] MEDICAL REC #: [id number] [place] [address] EMERGENCY DEPARTMENT REPORT EMERGENCY DEPARTMENT PHYSICIAN TRIAGE HISTORY ALLERGIES Allergic To: Tylenol - nasal bleeding 04/21/2021 14:29 KTDA Allergic To: buspar - Abnormal Behavior 04/21/2021 14:29 KTDA Allergic To: ASA - nasal bleeding 04/21/2021 14:29 KTDA CURRENT MEDS Name: None 04/21/2021 14:29 KTDA ILLNESS Illness: Psychiatrc Disorder-ADHD 04/21/2021 14:29 KTDA Illness: Chronic Pains back 04/21/2021 14:29 KTDA Illness: Depression 04/21/2021 14:29 KTDA Illness: Asthma 04/21/2021 14:29 KTDA Illness: Migraines 04/21/2021 14:29 KTDA Illness: Bipolar Disorder 04/21/2021 14:29 KTDA Illness: PTSD 04/21/2021 14:29 KTDA Illness: TBI 04/21/2021 14:29 KTDA PAST SURGERY HIST Surgery: Eye- 04/21/2021 14:29 KTDA Surgery: dental 04/21/2021 14:29 KTDA Surgery: Tonsillectomy 04/21/2021 14:29 KTDA PAST SOCIAL HIST Social History: Behavior age appropriate 04/21/2021 [facility] PATIENT NAME: JEREMY BERKOWITZ [address] [facility] [address] MEDICAL REC #: [id number] [place] [address] EMERGENCY DEPARTMENT REPORT EMERGENCY DEPARTMENT PHYSICIAN 14:29 KTDA Social History: Communicates without difficulty 04/21/2021 14:29 KTDA Social History: Lives with family or significant other 04/21/2021 14:29 KTDA Social History: Alcohol - None 04/21/2021 14:29 KTDA Social History: Smoker-None 04/21/2021 14:29 KTDA Social History: Recreational Drugs - None 04/21/2021 14:29 KTDA Social History: Denies Domestic Violence 04/21/2021 14:29 KTDA Social History: Denies thoughts of self harm. 04/21/2021 14:29 KTDA Social History: Have you traveled in the past month? Where NO 04/21/2021 14:29 KTDA IMMUNIZATIONS Immunization: Flu Vaccine-no 04/21/2021 14:29 KTDA NURSING ASSESSMENT ASSESSMENT NOTES TREATMENT 04/21/2021 14:29 Neuro Assessment - Neuro Assessment 04/21/2021 14:31 KTDA [place] Coma Scale /15 15 Level of Orientation /4 4 Language No Aphasia Visual Zavala Right Intact Visual Zavala Left Intact Speech Clear [facility] PATIENT NAME: JEREMY BERKOWITZ [address] [facility] [address] MEDICAL REC #: [id number] [place] [address] EMERGENCY DEPARTMENT REPORT EMERGENCY DEPARTMENT PHYSICIAN Facial Droop Negative Sensory WNL Motor Right Arm Strong Motor Right Leg Strong Motor Arm Left Strong Motor Leg Left Strong MEDICATIONS IV I AND O VITALS VS-ROUTINE Time: 04/21/2021 14:25 B/P: 131/62 - Left Upper Arm - Sitting - Machine Pulse: 86 - Monitor Resp: 16 Sa02: 96 Room Air Temp: 98.20 F - Oral 04/21/2021 14:29 KTDA VS-Pain Time: 04/21/2021 14:25 Pain Level: 0 04/21/2021 14:29 KTDA VS-GCS Time: 04/21/2021 14:25 Visual: 4 Verbal: 5 Motor: 6 GCS Total: 15 04/21/2021 14:29 KTDA VS-HT/WT Time: 04/21/2021 14:25 Ht: 67 in. Stated Weight: 233 lbs Stated 04/21/2021 14:29 KTDA VS-Visual Time: 04/21/2021 14:25 04/21/2021 14:29 KTDA VS-FHT Time: 04/21/2021 14:25 04/21/2021 14:29 KTDA VS-Notes Time: 04/21/2021 14:25 MAP 88 04/21/2021 14:29 KTDA ORDERS LBE 04/21/2021 17:47 N/A Ordered: 04/21/2021 17:47 By HELDER CERVANTES Reviewed: 04/21/2021 17:47 By HELDER CERVANTES (more content not included)... Normal [facility] [place] .Auto Diffon 03-14-2021 Basophil, Absolute 0.10 10 3/mcL Normal 0.00-0.27 [facility] ([place]) Comment on above: Performed By: #### CBC, ADIFF, ANEU, BMP , GFR, TROPHS #### [address] [address] Basophils/100 WBC (Bld) 0.9 % Normal 0.0-2.5 [facility] ([place]) Comment on above: Performed By: #### CBC, ADIFF, ANEU, BMP , GFR, TROPHS #### [address] [address] Eosinophil, Absolute 0.10 10 3/mcL Normal 0.00-0.65 [facility] ([place]) Comment on above: Performed By: #### CBC, ADIFF, ANEU, BMP , GFR, TROPHS #### [address] [address] Eosinophils/100 WBC (Bld) 0.7 % Normal 0.0-6.0 [facility] ([place]) Comment on above: Performed By: #### CBC, ADIFF, ANEU, BMP , GFR, TROPHS #### [address] [address] Lymphocyte, Absolute 3.00 10 3/mcL Normal 0.90-4.32 [facility] ([place]) Comment on above: Performed By: #### CBC, ADIFF, ANEU, BMP , GFR, TROPHS #### [address] [address] Lymphocytes/100 WBC (Bld) 24.2 % Normal 20.0-40.0 [facility] [place] Comment on above: Performed By: #### CBC, ADIFF, ANEU, BMP , GFR, TROPHS #### [address] [address] Monocyte, Absolute 1.20 10 3/mcL Normal 0.09-1.40 [facility] [place] Comment on above: Performed By: #### CBC, ADIFF, ANEU, BMP , GFR, TROPHS #### [address] [address] Monocytes/100 WBC (Bld) 9.8 % Normal 2.0-13.0 [facility] [place] Comment on above: Performed By: #### CBC, ADIFF, ANEU, BMP , GFR, TROPHS #### [address] [address] Neutrophils/100 WBC (Bld) 64.4 % Normal 50.0-75.0 [facility] [place] Comment on above: Performed By: #### CBC, ADIFF, ANEU, BMP , GFR, TROPHS #### [address] [address] .GFRon 03-14-2021 GFR Non- >60 Normal [facility] [place] Comment on above: Result Comment: GFR Population mean for , Non- Americans Ages 20-29 = 116 mL/min/1.73 sq.m. Ages 30-39 = 107 mL/min/1.73 sq.m. Ages 40-49 = 99 mL/min/1.73 sq.m. Ages 50-59 = 93 mL/min/1.73 sq.m. Ages 60-69 = 85 mL/min/1.73 sq.m. Ages 70+ = 75 mL/min/1.73 sq.m. Chronic Kidney Disease: Less than 60 mL/min/1.73 square meters End Stage Renal Disease: Less than 15 mL/min/1.73 square meters Performed By: #### C BC, ADIFF, ANEU, BMP, GFR, TROPHS #### [address] [address] GFR >60 Normal [facility] ([place] Comment on above: Result Comment: GFR Population mean for , Non- Americans Ages 20-29 = 116 mL/min/1.73 sq.m. Ages 30-39 = 107 mL/min/1.73 sq.m. Ages 40-49 = 99 mL/min/1.73 sq.m. Ages 50-59 = 93 mL/min/1.73 sq.m. Ages 60-69 = 85 mL/min/1.73 sq.m. Ages 70+ = 75 mL/min/1.73 sq.m. Chronic Kidney Disease: Less than 60 mL/min/1.73 square meters End Stage Renal Disease: Less than 15 mL/min/1.73 square meters Performed By: #### C BC, ADIFF, ANEU, BMP, GFR, TROPHS #### [address] [address] .NEUABSon 03-14-2021 Neutrophil, Absolute 8.00 10 3/mcL Normal 2.25-8.10 [facility] [place] Comment on above: Performed By: #### CBC, ADIFF, ANEU, BMP , GFR, TROPHS #### [address] [address] BMPon 03-14-2021 BUN/Creatinine Ratio 19.3 ratio Normal 10.0-22.0 [facility] [place] Comment on above: Performed By: #### CBC, ADIFF, ANEU, BMP , GFR, TROPHS #### [address] [address] Calcium [Mass/Vol] 8.7 mg/dL Normal 8.4-10.1 [facility] [place] Comment on above: Result Comment: Note - New Reference Scott valdivia in effect 03/17/20 Performed By: #### C BC, ADIFF, ANEU, BMP, GFR, TROPHS #### [address] [address] Chloride [Moles/Vol] 106 mmol/L Normal 98-110 [facility] [place] Comment on above: Performed By: #### CBC, ADIFF, ANEU, BMP , GFR, TROPHS #### [address] [address] CO2 [Moles/Vol] 29 mmol/L Normal 22-32 [facility] [place] Comment on above: Performed By: #### CBC, ADIFF, ANEU, BMP , GFR, TROPHS #### [address] [address] Creatinine [Mass/Vol] 1.09 mg/dL Normal 0.60-1.40 [facility] [place] Comment on above: Performed By: #### CBC, ADIFF, ANEU, BMP , GFR, TROPHS #### [address] [address] Electrolyte Balance 6.0 mEq/L Normal 4.0-15.0 [facility] [place] Comment on above: Performed By: #### CBC, ADIFF, ANEU, BMP , GFR, TROPHS #### [address] [address] Glucose [Mass/Vol] 105 mg/dL Normal 70-110 [facility] [place] Comment on above: Performed By: #### CBC, ADIFF, ANEU, BMP , GFR, TROPHS #### [address] [address] Potassium [Moles/Vol] 3.7 mmol/L Normal 3.5-5.0 [facility] [place] Comment on above: Result Comment: Specimen slightly hemoly zed. Results may be falsely elevated. Performed By: #### C BC, ADIFF, ANEU, BMP, GFR, TROPHS #### [address] [address] Sodium [Moles/Vol] 141 mmol/L Normal 136-145 [facility] [place] Comment on above: Performed By: #### CBC, ADIFF, ANEU, BMP , GFR, TROPHS #### [place] [address] Urea nitrogen [Mass/Vol] 21.0 mg/dL Normal 8.0-22.0 [facility] [place] Comment on above: Performed By: #### CBC, ADIFF, ANEU, BMP , GFR, TROPHS #### [place] [address] CBCon 03-14-2021 Erythrocyte distribution width (RBC) [Ratio] 13.5 % Normal 11.5-15.5 [facility] [place] Comment on above: Performed By: #### CBC, ADIFF, ANEU, BMP , GFR, TROPHS #### [place] [address] Hematocrit (Bld) [Volume fraction] 41.2 % Normal 40.0-52.0 [facility] [place] Comment on above: Performed By: #### CBC, ADIFF, ANEU, BMP , GFR, TROPHS #### [place] [address] Hgb 13.9 G/dL Normal 13.0-17.5 [facility] [place] Comment on above: Performed By: #### CBC, ADIFF, ANEU, BMP , GFR, TROPHS #### [place] [address] MCH (RBC) [Entitic mass] 28.8 pg Normal 27.0-33.0 [facility] [place] Comment on above: Performed By: #### CBC, ADIFF, ANEU, BMP , GFR, TROPHS #### [place] [address] MCHC 33.7 G/dL Normal 32.0-36.0 [facility] [place] Comment on above: Performed By: #### CBC, ADIFF, ANEU, BMP , GFR, TROPHS #### [place] [address] MCV (RBC) [Entitic vol] 85.4 fL Normal 81.0-100.0 [facility] [place] Comment on above: Performed By: #### CBC, ADIFF, ANEU, BMP , GFR, TROPHS #### [place] [address] Platelet 249 10 3/mcL Normal 150-450 [facility] [place] Comment on above: Performed By: #### CBC, ADIFF, ANEU, BMP , GFR, TROPHS #### [place] [address] Platelet mean volume (Bld) [Entitic vol] 8.6 fL Normal 6.4-10.5 [facility] [place] Comment on above: Performed By: #### CBC, ADIFF, ANEU, BMP , GFR, TROPHS #### [place] [address] RBC 4.82 10 6/mcL Normal 4.50-6.00 [facility] [place] Comment on above: Performed By: #### CBC, ADIFF, ANEU, BMP , GFR, TROPHS #### [place] [address] WBC 12.50 10 3/mcL High 4.50-10.80 [facility] [place] Comment on above: Performed By: #### CBC, ADIFF, ANEU, BMP , GFR, TROPHS #### [place] [address] TROPHSon 03-14-2021 Troponin I High Sensitivity 8.14 ng/L Normal 0.00-54.00 [facility] [place] Comment on above: Performed By: #### CBC, ADIFF, ANEU, BMP , GFR, TROPHS #### [place] [address] XR CHEST 1 VIEWon 03-14-2021 XR CHEST 1 VIEW ORIGINAL EXAMINATION: ONE XRAY VIEW OF THE CHEST 03/14/2021 12:02 am COMPARISON: 11/07/2019 HISTORY: ORDERING SYSTEM PROVIDED HISTORY: chest pain Reason for Exam: chest pain FINDINGS: Cardiomediastinal silhouette is stable. No focal consolidation, pleural effusion, or pneumothorax. No vascular congestion. Previously described left suprahilar nodular density is not evident on this study. No acute osseous abnormality. IMPRESSION: No acute radiographic findings. I have reviewed this exam and agree with the resident's report. Interpreted by: Chandler Morales Preliminary Report By: Earl Castro Electronically signed By Chandler Morales Dictated Date: 03/14/2021 12:08:13 AM Prelim Date: 03/14/2021 12:11:05 AM Sign Date: 03/14/2021 1:33:36 AM Ordering Provider: MARISOL Higgins [facility] [place] FLUAV RNA Nph Ql Non-probe P CR FLUAV RNA SEBAS+non-probe Ql (Nph) Not detected NOT DETECTD [facility] Work Phone: No Panel Information Adenovirus (PCR) Not detected NOT DETECTD [facility] Work Phone: [phone] Bordetella parapertussis DNA (PCR) Not detected NOT DETECTD [facility] Work Phone: [phone] Bordetella pertussis DNA (PCR) Not detected NOT DETECTD [facility] Work Phone: [phone] Chlamydia pneumoniae DNA (PCR) Not detected NOT DETECTD [facility] Work Phone: [phone] Coronavirus Type 229E (PCR) Not detected NOT DETECTD [facility] Work Phone: [phone] Coronavirus Type HKU1 (PCR) Not detected NOT DETECTD [facility] Work Phone: [phone] Coronavirus Type NL63 (PCR) Not detected NOT DETECTD [facility] Work Phone: [phone] Coronavirus Type OC43 (PCR) Not detected NOT DETECTD [facility] Work Phone: [phone] Human Metapneumovirus (PCR) Not detected NOT DETECTD [facility] Work Phone: [phone] Influenza Type A (H1) (PCR) Not detected NOT DETECTD [facility] Work Phone: [phone] Influenza Type A (H3) (PCR) Not detected NOT DETECTD [facility] Work Phone: [phone] Influenza Virus Type B (PCR) Not detected NOT DETECTD [facility] Work Phone: Mycoplasma pneumoniae (PCR) Not detected NOT DETECTD [facility] Work Phone: Parainfluenza virus 4 RNA Parainfluenza virus 4 RNA SEBAS+probe Ql (Unsp spec) Not detected NOT DETECTD [facility] Work Phone: SARS-CoV-2 RNA Resp QI SEBAS+p leo SARS-CoV-2 (COVID-19) RNA SEBAS+probe Ql (Resp) Not detected NOT DETECTD [facility] Work Phone: Comment on above: RESULTS CALLED TO ROCCO CHESTER/COURTNEY 1903 11/13/21 BY KIMBERLI HOWARDNegative results do not preclude SARS-CoV-2 infection andshould not be used as the sole basis for treatment or otherpatient management decisions. Negative results must becombined with clinical observation, patient history, andepidemiological information. This test was performed by PCR. Vital Signs Date Time Vital Sign Value Performing Clinician Faci lity 12-04-2024 14:16-0400 Body height 170.[address] Junior Ovalle MD Work Phone: [facility] 12-04-2024 14:16-0400 Body mass index (BMI) [Ratio] 36 kg/m2 Dr. Junior Ovalle MD Work Phone: [facility] 12-04-2024 14:16-0400 Body temperature 97.6 [degF] Dr. Junior Ovalle MD Work Phone: [facility] 12-04-2024 14:16-0400 Body weight 104.[address] Junior Ovalle MD Work Phone: [facility] 12-04-2024 14:16-0400 Diastolic blood pressure 89 mm[Hg] Dr. Junior Ovalle MD Work Phone: [facility] 12-04-2024 14:16-0400 Heart rate 108 /min Dr. Junior Ovalle MD Work Phone: [facility] 12-04-2024 14:16-0400 Respiratory rate 20 /min Dr. Junior Ovalle MD Work Phone: [phone] [place] [address] 12-04-2024 14:16-0400 SaO2% (BldA) [Mass fraction] 98 % Dr. Junior Ovalle MD Work Phone: [phone] [place] [address] 12-04-2024 14:16-0400 Systolic blood pressure 144 mm[Hg] Dr. Junior Ovalle MD Work Phone: [phone])[phone] [place] [address] 10-31-2024 23:42-0500 Body temperature 98 [degF] Dr. Junior Ovalle MD Work Phone: [phone])181-560577 [place] [address] 10-31-2024 23:42-0500 Diastolic blood pressure 76 mm[Hg] Dr. Junior Ovalle MD Work Phone: [phone])[phone] [place] [address] 10-31-2024 23:42-0500 Heart rate 75 /min Dr. Junior Ovalle MD Work Phone: [phone])[phone] [place] [address] 10-31-2024 23:42-0500 Respiratory rate 18 /min Dr. Junior Ovalle MD Work Phone: [phone])[phone] [address] 10-31-2024 23:42-0500 SaO2% (BldA) [Mass fraction] 97 % Dr. Junior Ovalle MD Work Phone: 0(884)[phone] [place] [address] 10-31-2024 23:42-0500 Systolic blood pressure 139 mm[Hg] Dr. Junior Ovalle MD Work Phone: [phone])[phone] [place] [address] 10-31-2024 22:02-0500 Body height 170.[address] Junior Ovalle MD Work Phone: [phone] [address] [place] [address] 10-31-2024 22:02-0500 Body mass index (BMI) [Ratio] 37.8 kg/m2 Dr. Junior Ovalle MD Work Phone: [phone] [place] [address] 10-31-2024 22:02-0500 Body weight 109.[address] Junior Ovalle MD Work Phone: [phone] [place] [address] 03-04-2024 08:06-0400 Diastolic blood pressure 83 mm[Hg] Ct 1 [facility] 03-04-2024 08:06-0400 Heart rate 68 /min Ct 1 [facility] 03-04-2024 08:06-0400 Systolic blood pressure 128 mm[Hg] Ct 1 [facility] 02-15-2024 14:03-0400 Body height 170.2 cm Teree Rice RETAIL LOAN OFFICER.FINE CHEMICALS OPERATOR Work Phone: [facility] 02-15-2024 14:03-0400 Body mass index (BMI) [Ratio] 38.22 kg/m2 Teree Rice RETAIL LOAN OFFICER.FINE CHEMICALS OPERATOR Work Phone: [facility] 02-15-2024 14:03-0400 Body weight 110.68 kg Teree Rice RETAIL LOAN OFFICER.FINE CHEMICALS OPERATOR Work Phone: [facility] 02-15-2024 14:03-0400 Diastolic blood pressure 80 mm[Hg] Teree Rice RETAIL LOAN OFFICER.FINE CHEMICALS OPERATOR Work Phone: [facility] 02-15-2024 14:03-0400 Heart rate 95 /min Teree Rice RETAIL LOAN OFFICER.FINE CHEMICALS OPERATOR Work Phone: [facility] 02-15-2024 14:03-0400 SaO2% (BldA) [Mass fraction] 98 % Teree Rice RETAIL LOAN OFFICER.FINE CHEMICALS OPERATOR Work Phone: [facility] 02-15-2024 14:03-0400 Systolic blood pressure 112 mm[Hg] Teree Rice RETAIL LOAN OFFICER.FINE CHEMICALS OPERATOR Work Phone: [facility] 11-10-2023 11:26-0400 Body height 170.2 cm Jose Barrett MD Work Phone: [facility] 11-10-2023 11:26-0400 Body weight 111.22 kg Jose Barrett MD Work Phone: [facility] 11-10-2023 11:26-0400 Diastolic blood pressure 75 mm[Hg] Jose Barrett MD Work Phone: [facility] 11-10-2023 11:26-0400 Heart rate 80 /min Jose Barrett MD Work Phone: [facility] 11-10-2023 11:26-0400 SaO2% (BldA) [Mass fraction] 97 % Jose Barrett MD Work Phone: [facility] 11-10-2023 11:26-0400 Systolic blood pressure 118 mm[Hg] Jose Barrett MD Work Phone: [facility] 02-14-2023 08:15-0400 Body height 170.2 cm Blue Rojas MD Work Phone: [facility] 02-14-2023 08:15-0400 Body weight 109.77 kg Blue Rojas MD Work Phone: [facility] 02-14-2023 08:15-0400 Diastolic blood pressure 70 mm[Hg] Blue Rojas MD Work Phone: [facility] 02-14-2023 08:15-0400 Heart rate 78 /min Blue Rojas MD Work Phone: [facility] 02-14-2023 08:15-0400 SaO2% (BldA) [Mass fraction] 98 % Blue Rojas MD Work Phone: [facility] 02-14-2023 08:15-0400 Systolic blood pressure 120 mm[Hg] Blue Rojas MD Work Phone: [facility] 11-14-2021 23:22-0400 Body temperature 98.2 [degF] Shannan Wilburn Home Phone: [facility] Work Phone: 11-14-2021 23:22-0400 Body weight 104.3 kg Shannan Wilburn Home Phone: [facility] Work Phone: 11-14-2021 23:22-0400 Diastolic blood pressure 71 mm[Hg] Shannan Wilburn Home Phone: [facility] Work Phone: 11-14-2021 23:22-0400 Heart rate 92 /min Shannan Wilburn Home Phone: [facility] Work Phone: 11-14-2021 23:22-0400 Systolic blood pressure 128 mm[Hg] Shannan Wilburn Home Phone: [facility] Work Phone: 11-13-2021 18:02-0400 Body temperature 98.4 [degF] Shannan Wilburn Home Phone: [facility] Work Phone: 11-13-2021 18:02-0400 Body weight 104.5 kg Shannan Wilburn Home Phone: [facility] Work Phone: 11-13-2021 18:02-0400 Diastolic blood pressure 75 mm[Hg] Shannan Wilburn Home Phone: [facility] Work Phone: 11-13-2021 18:02-0400 Heart rate 97 /min Shannan Wilburn Home Phone: [facility] Work Phone: 11-13-2021 18:02-0400 Systolic blood pressure 113 mm[Hg] Shannan Wilburn Home Phone: [facility] Work Phone: Encounters Encounter Date Encounter Type Care Provider Facility Start: 04-02-2025 End: 04-02-2025 ambulatory SELF Facility:[id number] Start: 12-04-2024 End: 12-04-2024 Emergency department patient visit Dr. Junior Ovalle MD Work Phone: -Emergency Department Work Phone: Start: 11-12-2024 End: 11-13-2024 Telephone encounter Jose Barrett MD Work Phone: [facility] Start: 11-11-2024 End: 11-11-2024 Telephone encounter Jose Barrett MD Work Phone: [facility] Start: 11-08-2024 End: 11-08-2024 Chart abstracting Jose Barertt MD Work Phone: [facility] Start: 10-31-2024 End: 10-31-2024 Emergency department patient visit Dr. Junior Ovalle MD Work Phone: -Emergency Department Work Phone: Start: 09-20-2024 End: 09-20-2024 Emergency department patient visit SHANNAN WILBURN Facility:[id number] Start: 09-19-2024 End: 09-26-2024 Telephone encounter Jose Barrett MD Work Phone: [facility] Start: 09-13-2024 End: 09-13-2024 Orders Only Chilo Mccall staff cytotechnologist [facility] Start: 08-29-2024 End: 09-19-2024 Telephone encounter Jose Barrett MD Work Phone: [facility] Comment on above: Patient Question Start: 06-03-2024 End: 06-04-2024 Telephone encounter Jose Barrett MD Work Phone: [facility] Start: 05-23-2024 End: 05-29-2024 Telephone encounter Jose Barrett MD Work Phone: [facility] Comment on above: Results Patient Question Start: 04-24-2024 End: 04-24-2024 Refill Jose Barrett MD Work Phone: [facility] Comment on above: Refill Request Start: 03-18-2024 Telephone encounter Jose Diana MD Work Phone: [facility] Comment on above: Event monitor neds i nterpreted Event monitor needs interpreted Start: 03-06-2024 Telephone encounter Jose Diana MD Work Phone: [facility] Comment on above: Patient Question Start: 03-05-2024 Telephone encounter Jose Diana MD Work Phone: [facility] Comment on above: Results Start: 03-04-2024 End: 03-04-2024 Subsequent hospital visit by physician Ct [facility] [address] Scan Comment on above: Chest pain, unspecif ied type [R07.9] Start: 02-19-2024 Telephone encounter Davina quinn RETAIL LOAN OFFICER.FINE CHEMICALS OPERATOR Work Phone: [facility] Comment on above: Patient Update Start: 02-16-2024 Telephone encounter Blue Mary MD Work Phone: [facility] Start: 02-15-2024 End: 02-15-2024 Office outpatient visit 40 minutes Davina Heredia RETAIL LOAN OFFICER.FINE CHEMICALS OPERATOR Work Phone: [facility] Comment on above: LV dysfunction (Prim rhina Dx); Asymptomatic myocardial ischemia; Persistent asthma without complication, unspecified asthma severity Start: 02-13-2024 Telephone encounter Davina quinn RETAIL LOAN OFFICER.FINE CHEMICALS OPERATOR Work Phone: [facility] Comment on above: Appointment Start: 02-07-2024 Telephone encounter Jose Diana MD Work Phone: [facility] Comment on above: Patient Question; Pa tient Update Start: 02-06-2024 Orders Only Jose Su Work Phone: [facility] Comment on above: OPENED IN ERROR (Areli sravan Dx) Start: 01-23-2024 Telephone encounter Jose Diana MD Work Phone: [facility] Comment on above: Patient Update Other specified hypo tension (Primary Dx) Start: 01-20-2024 End: 01-21-2024 Emergency department patient visit Marcos Villanueva Facility:[facility] Start: 01-16-2024 Telephone encounter Jose Diana MD Work Phone: [facility] Comment on above: Patient Question Start: 01-02-2024 End: 01-02-2024 Orders Only Ledy Contreras MA [facility] Comment on above: Palpitations [R00.2] Start: 12-21-2023 Telephone encounter Jose Diana MD Work Phone: [facility] Start: 11-27-2023 Telephone encounter Jose Diana MD Work Phone: [facility] Comment on above: Patient Question Patient Update Start: 11-15-2023 Telephone encounter Jose Diana MD Work Phone: [facility] Comment on above: Results (Echo) Start: 11-15-2023 End: 11-15-2023 Subsequent hospital visit by physician Echo Lab 2 [facility] Work Phone: [facility] Start: 11-13-2023 Telephone encounter Jose Diana MD Work Phone: [facility] Comment on above: Appointment (CTA) Start: 11-10-2023 End: 11-10-2023 Office outpatient new 45 minutes Jose Barrett MD Work Phone: [facility] Comment on above: Chest pain, unspecif ied type (Primary Dx); SELBY (dyspnea on exertion) Start: 06-21-2023 Telephone encounter Everardo myers MD Work Phone: [facility] Comment on above: Appointment Start: 06-20-2023 Telephone encounter Rashard palafox MD Work Phone: [facility] Start: 04-04-2023 Telephone encounter Blue Mary MD Work Phone: [facility] Comment on above: Appointment (Lm for pt to call office to schedule follow up appt-jj) Start: 03-16-2023 Orders Only Blue Rojas MD Work Phone: [facility] Comment on above: Chest pain, unspecif ied type Start: 03-15-2023 Telephone encounter Norma car RETAIL LOAN OFFICER.FINE CHEMICALS OPERATOR Work Phone: [facility] Comment on above: Appointment Start: 03-13-2023 Telephone encounter Blue Mary MD Work Phone: [facility] Comment on above: Appointment Start: 03-09-2023 Patient encounter procedure [facility]cf Provider [facility] Department Start: 03-07-2023 End: 03-07-2023 Subsequent hospital visit by physician Stress/Echo Lab 2 [facility] Work Phone: [facility] Comment on above: Chest pain, unspecif ied type [R07.9] Start: 02-24-2023 End: 02-24-2023 Subsequent hospital visit by physician Ct [facility] 2 Work Phone: Radiology CT Scan Comment on above: Solitary pulmonary n odule [R91.1] Start: 02-14-2023 End: 02-14-2023 Office outpatient new 60 minutes Blue Rojas MD Work Phone: [facility] Comment on above: Moderate persistent asthma without complication (Primary Dx); Solitary pulmonary nodule; Gastroesophageal reflux disease, unspecified whether esophagitis present; JOSE (obstructive sleep apnea); Chest pain, unspecified type Start: 01-29-2022 Patient encounter procedure Renato Elizalde MD Work Phone: [facility] Start: 01-29-2022 Progress Note Renato Elizalde MD Work Phone: [facility] Start: 01-29-2022 End: 01-29-2022 Subsequent hospital visit by physician [facility] Provider [facility] NEREIDA CONTRERASV Comment on above: BODY RASH Start: 01-28-2022 End: 01-28-2022 Subsequent hospital visit by physician [facility] OPALY[facility] Comment on above: BUMPS ON BODY/CFD/TR IAGE Start: 11-14-2021 End: 11-14-2021 Emergency department patient visit Shannan Wilburn Home Phone: [facility] Start: 11-14-2021 End: 11-14-2021 Subsequent hospital visit by physician [facility]AL[facility] Comment on above: HEADACHE/FEVER/TRIAG E Start: 11-13-2021 End: 11-13-2021 Subsequent hospital visit by physician IF NEREIDA ALONSO Comment on above: BODY ACHES,HEADACHE/ TRIAGE Start: 11-13-2021 End: 11-13-2021 Emergency department patient visit Shannan Wilburn Home Phone: [facility] Start: 11-05-2021 End: 11-05-2021 Subsequent hospital visit by physician [facility]cf Provider IF OPALPETR ALONSO Comment on above: COUGH, SORE THROAT, VOMITING, STUFFY NOSE Start: 11-05-2021 End: 11-05-2021 Patient encounter procedure Shannan Wilburn Home Phone: [facility] Start: 09-10-2021 End: 09-10-2021 Subsequent hospital visit by physician Shannan Cosmo Work Phone: [facility] Comment on above: J45.30 Start: 09-10-2021 Patient encounter procedure Shannan Girard Phone: [facility] Start: 08-16-2021 End: 08-16-2021 Subsequent hospital visit by physician IF OPALPETR ALONSO Comment on above: GROIN CYST/INFECTION /TRIAGE Procedures Date Procedure Procedure Detail Performing Clinician Start: 12-04-2024 SARS-CoV-2, Influenz a & RSV (PCR) Dr. Junior Ovalle MD Work Phone: Start: 03-04-2024 Cta hrt cornry art/b ypass grfts contrst 3d post Jose Barrett MD Work Phone: Start: 03-07-2023 Echo tthrc r-t 2d w/ wo m-mode complete rest&st Blue Rojas MD Work Phone: Start: 11-14-2021 CT of head without contrast Shannan Wilburn Home Phone: Plan of Treatment Date Care Activity Detail Author Start: 01-19-2033 Urine microalbumin profile DTaP,Tdap,Td Vaccine (2 - Td or Tdap) [facility] Start: 12-04-2024 [facility] Start: 11-11-2024 End: 11-11-[address] [facility] Comment on above: 1 yeaar follow up appt EKG 09/20/24, LV dysf untion, Asymptomatic Myocardial Ischemia Start: 10-31-2024 [facility] Start: 10-31-2024 Incision & drainage abscess simple/single I&D ABSCESS SIMPLE/SINGLE [facility] Start: 04-28-2024 Covid-19 Vaccine ( season) Covid-19 Vaccine ( season) [facility] Start: 04-28-2024 Covid-19 Vaccine () Covid-19 Vaccine () [facility] Start: 04-28-2024 Influenza vaccination [facility] Start: 04-25-2024 End: 04-25-2024 Patient encounter procedure 04/25/2024 10:50 AM EDT Office Visit Babak Daigle [address] [place] [address] Blue Rojas MD [address] [place] [address] Follow up [facility] Comment on above: Follow up Start: 03-04-2024 End: 03-04-2024 Patient encounter procedure 03/04/2024 8:00 AM EDT Appointment Radiology CT Scan [address] [place] [address] Procedure: CTA CORONARY W IVCON Status: Needs Scheduling Radiology CT Scan Comment on above: Procedure: CTA CORONARY W IVCON Status: Needs Scheduling Start: 02-15-2024 End: 02-15-2024 Patient encounter procedure 02/15/2024 2:00 PM EDT Office Visit [facility] [address] [place] [address] Davina Heredia, RETAIL LOAN OFFICER.FINE CHEMICALS OPERATOR [address] [place] [phone] follow up apt [facility] Comment on above: follow up apt Start: 01-02-2024 End: 01-02-2024 Patient encounter procedure 01/02/2024 9:[address] [facility] [address] [place] [address] [R00.2] Palpitations [facility] Comment on above: [R00.2] Palpitations Start: 08-28-2023 Behavioral Health Screening Behavioral Health Screening [facility] Start: 08-28-2023 Depression Assessment Depression Assessment [facility] Start: 04-28-2023 Covid-19 Vaccine () Covid-19 Vaccine () [facility] Start: 04-28-2023 Influenza vaccination [facility] Start: 08-28-2022 DEPRESSION ASSESSMENT DEPRESSION ASSESSMENT [facility] Start: 2020 Zoledronic acid therapy ALPHA-1 ANTITRYPSIN DEFICIENCY SCREENING [facility] Start: 2009 Hepatitis B Vaccine (1 of 3 - 19+ 3-dose series) Hepatitis B Vaccine (1 of 3 - 19+ 3-dose series) [facility] Start: 2009 Pneumococcal vaccination Pneumococcal Vaccine (1 of 2 - PCV) [facility] Start: 2009 Urine microalbumin profile DTAP,TDAP,TD (1 - Tdap) [facility] Start: 2008 ANNUAL PCP TEAM CHRONIC DISEASE VISIT ANNUAL PCP TEAM CHRONIC DISEASE VISIT [facility] Start: 2008 Depression Screening Depression Screening [facility] Start: 2008 HEPATITIS C SCREENING HEPATITIS C SCREENING [facility] Start: 2008 Hepatitis C screening Hepatitis C Screening [facility] Start: 2008 HIV SCREENING HIV SCREENING [facility] Start: 2008 HIV screening HIV Screening [facility] Start: 2008 SPIROMETRY SPIROMETRY [facility] Start: 1996 PNEUMOCOCCAL (1 - PCV) PNEUMOCOCCAL (1 - PCV) [facility] Start: 1996 Pneumococcal vaccination [facility] Start: 1990 COVID-19 VACCINE (#1) COVID-19 VACCINE (#1) [facility] Start: 1990 HEPATITIS B (1 of 3 - 3-dose series) HEPATITIS B (1 of 3 - 3-dose series) [facility] Start: 1990 Hepatitis B Vaccine (1 of 3 - 3-dose series) Hepatitis B Vaccine (1 of 3 - 3-dose series) [facility] End: 03-15-2024 Ct thorax w/o contrast material CT CHEST WO IVCON Radiology Routine Solitary pulmonary nodule 1 Occurrences starting 02/14/2023 until 03/15/2024 [facility] Work Phone: Comment on above: 1 Occurrences starting 02/14/2023 until 03/15/2024 End: 02-24-2023 Ct thorax w/o contrast material [facility] Work Phone: Comment on above: 1 Occurrences starting 02/24/2023 until 02/24/2023 End: 12-09-2024 CTA Heart and Coronary arteries W contrast IV CTA CORONARY W IVCON Radiology Routine Chest pain, unspecified type SELBY (dyspnea on exertion) 1 Occurrences starting 11/10/2023 until 12/09/2024 [facility] Work Phone: Comment on above: 1 Occurrences starting 11/10/2023 until 12/09/2024 ECG B/O W INTERP (ME D OFFICE) ECG B/O W INTERP (MED OFFICE) ECG Routine Chest pain, unspecified type SELBY (dyspnea on exertion) Ordered: 11/10/2023 [facility] Work Phone: Comment on above: Ordered: 11/10/2023 ECG B/O W INTERP (ME D OFFICE) ECG B/O W INTERP (MED OFFICE) ECG Routine LV dysfunction Ordered: 02/15/2024 [facility] Work Phone: Comment on above: Ordered: 02/15/2024 End: 02-15-2024 ECG COMPLETE ECG COMPLETE ECG Routine Chest pain, unspecified type 1 Occurrences starting 02/14/2023 until 02/15/2024 [facility] Work Phone: Comment on above: 1 Occurrences starting 02/14/2023 until 02/15/2024 End: 11-09-2024 Echocardiography ECHO Cardiology Routine Chest pain, unspecified type SELBY (dyspnea on exertion) 1 Occurrences starting 11/10/2023 until 11/09/2024 [facility] Work Phone: Comment on above: 1 Occurrences starting 11/10/2023 until 11/09/2024 EVENT MONITOR EVENT MONITOR Ca rdiology Routine Palpitations Abnormal EKG Ordered: 12/19/2023 [facility] Work Phone: Comment on above: Ordered: 12/19/2023 End: 03-15-2024 LUNG DIFFUSION CAPACITY (DLCO) LUNG DIFFUSION CAPACITY (DLCO) PFT Routine Moderate persistent asthma without complication 1 Occurrences starting 02/14/2023 until 03/15/2024 [facility] Work Phone: Comment on above: 1 Occurrences starting 02/14/2023 until 03/15/2024 End: 03-15-2024 LUNG VOLUMES LUNG VOLUMES PFT Routine Moderate persistent asthma without complication 1 Occurrences starting 02/14/2023 until 03/15/2024 [facility] Work Phone: Comment on above: 1 Occurrences starting 02/14/2023 until 03/15/2024 End: 03-15-2024 MAXIMAL VOLUNTARY VENTILATION MAXIMAL VOLUNTARY VENTILATION PFT Routine Moderate persistent asthma without complication 1 Occurrences starting 02/14/2023 until 03/15/2024 [facility] Work Phone: Comment on above: 1 Occurrences starting 02/14/2023 until 03/15/2024 MOBILE CARDIAC TELEM ETRY (MCT) DEVICE MOBILE CARDIAC TELEMETRY (MCT) DEVICE Holter Routine Chest pain, unspecified type Ordered: 09/03/2024 [facility] Work Phone: Comment on above: Ordered: 09/03/2024 MOBILE CARDIAC TELEM ETRY (MCT) DEVICE MOBILE CARDIAC TELEMETRY (MCT) DEVICE Holter Routine SELBY (dyspnea on exertion) Ordered: 09/19/2024 [facility] Work Phone: Comment on above: Ordered: 09/19/2024 End: 03-15-2024 NITRIC OXIDE, EXHALED NITRIC OXIDE, EXHALED PFT Routine Moderate persistent asthma without complication 1 Occurrences starting 02/14/2023 until 03/15/2024 [facility] Work Phone: Comment on above: 1 Occurrences starting 02/14/2023 until 03/15/2024 Patient Education [facility] Work Phone: Patient referral [facility] Work Phone: End: 02-14-2024 Polysomnogram POLYSOMNOGRAM (PSG) Procedures Routine JOSE (obstructive sleep apnea) 1 Occurrences starting 02/14/2023 until 02/14/2024 [facility] Work Phone: Comment on above: 1 Occurrences starting 02/14/2023 until 02/14/2024 End: 03-15-2024 Radiologic exam esophagus single contrast study XR ESOPHAGRAM Radiology Routine Gastroesophageal reflux disease, unspecified whether esophagitis present 1 Occurrences starting 02/14/2023 until 03/15/2024 [facility] Work Phone: Comment on above: 1 Occurrences starting 02/14/2023 until 03/15/2024 End: 03-15-2024 SPIROMETRY - BASELINE AND POST DILATOR SPIROMETRY - BASELINE AND POST DILATOR PFT Routine Moderate persistent asthma without complication 1 Occurrences starting 02/14/2023 until 03/15/2024 [facility] Work Phone: Comment on above: 1 Occurrences starting 02/14/2023 until 03/15/2024 End: 02-15-2024 STRESS ECHO TREADMILL STRESS ECHO TREADMILL Cardiology Routine Chest pain, unspecified type 1 Occurrences starting 02/14/2023 until 02/15/2024 [facility] Work Phone: Comment on above: 1 Occurrences starting 02/14/2023 until 02/15/2024 [facility] Immunizations Immunization Date Immunization Notes Care Provider Fa [facility] 01-19-2023 tetanus toxoid, redu lily diphtheria toxoid, and acellular pertussis vaccine, adsorbed Rashard Rothman MD Work Phone: [facility] 08-02-2022 Influenza, injectabl e, Madin Greer Canine Kidney, preservative free, quadrivalent Rashard Rothman MD Work Phone: [facility] 08-02-2022 influenza virus vacc ine, unspecified formulation Everardo Sparks MD Work Phone: [facility] 05-12-2021 influenza, injectabl e, quadrivalent, preservative free Rashard Rothman MD Work Phone: [facility] 03-30-2020 influenza, injectabl e, quadrivalent, preservative free Rashard Rothman MD Work Phone: [facility] 11-29-2018 Influenza, injectabl e, Madin Greer Canine Kidney, preservative free, quadrivalent Rashard Rothman MD Work Phone: [facility] 01-27-2005 measles, mumps and rubella virus vaccine Rashard Rothman MD Work Phone: [facility] Payers Date Payer Category Payer Self-pay 2022 Unknown [id number] 2017 Medicaid [id number] Unknown [id number] Unknown [id number] Unknown [id number] Social History Date Type Detail Facility Tobacco smoking status VTIS Tobacco smoking consumption unknown [facility] Start: 1990 Sex Assigned At Not on file [facility] Start: 1990 Sex Assigned At Male [facility] Start: 04-04-2022 End: 12-04-2024 Tobacco smoking status VTIS Never smoked tobacco [facility] History of tobacco use Passive smoker [facility] Start: 04-04-2022 Tobacco use and exposure Smokeless tobacco non-user [facility] Start: 02-14-2023 End: 03-15-2023 Alcohol intake Lifetime non-drinker (finding) [facility] Start: 02-14-2023 End: 09-20-2024 History of Social function [facility] Start: 02-14-2023 End: 09-20-2024 Tobacco use panel [facility] National Score (1-100), lower number is lower risk 100 [facility] Start: 11-10-2023 End: 09-20-2024 Alcohol intake Current drinker of alcohol (finding) [facility] Start: 11-10-2023 Alcohol Comment occasional wine [facility] Start: 10-31-2024 End: 12-04-2024 Sex Male (finding) [facility] Goals Date Patient Goal Desired Activity /State Personal health goal Mental Status Date Assessment Result Facility 12-04-2024 Cognitive function Level Of Cons ciousness Awake;Alert;Appropriate;Follow s Commands [facility] Work Phone: Clinical Notes 01-29-2022 to 04-02-2025 Telephone Encounter - Claritza Headley RN - 11/12/2024 1:20 PM EDTTelephone Encounter - Claritza Headley RN - 11/12/2024 1:20 PM EDTJose Barrett MD - 11/08/2024 5:22 PM EDT Note Date & Type Note Facility 04-02-2025 Note HNO ID: [id number] Author: CLAUDIA MURRAY RT(R) Service: Radiology Author Type: Technologist Type: Progress Notes Filed: 04/02/2025 14:36 Note Text: Radiology Service Progress Note PATIENT NAME: Jeremy Berkowitz DATE OF SERVICE: April 02, 2025 TIME: 2:35 PM PATIENT IDENTITY VERIFICATION COMPLETED USING TWO (2) IDENTIFIERS: Name and Date of confirmed by patient verbally. FALL SCREENING: Has the patient had 2 falls in the last year or 1 fall with injury or currently using an Ambulatory Assistive Device (Walker, Cane, Wheelchair, Crutches, etc.)? No PATIENT GENDER DATA: Assigned male at PATIENT RELEVANT IMPLANT DATA REVIEWED: Not Applicable PATIENT PRESENTS WITH AN IMPLANTABLE OR ATTACHED SOUND CUTTER: No RADIOLOGY DEPARTMENT: General X-ray: Exam(s) Completed: Lower Extremity X-Ray(s): Foot, Right PERIPHERAL IV DATA: Not applicable SIGNED BY: RT Oly(R) April 02, 2025 2:35 PM [facility] 04-02-2025 Note HNO ID: [id number] Author: SCOTTY HUYNH MD Service: ? Author Type: Physician Type: Progress Notes Filed: 04/02/2025 14:37 Note Text: [facility] Ber[facility] is a 34 year old male. Patient presents with: Pain (foot): Patient stated that his right foot gave out 2 days ago. Some swelling and bottom of foot hurts the most patient stated. 34-year-old patient presented here complaint right foot pain. Patient states that that he has pain and swelling on the bottom of his foot from a twist injury. Patient unable to apply weight onto the foot no other complaint. Review of Systems Musculoskeletal: Positive for arthralgias and myalgias. All other systems reviewed and are negative. Objective BP 120/65 Pulse 115 Temp 36.9 ?C (98.4 ?F) (Temporal) Resp 18 Wt 105.7 kg (233 lb) SpO2 99% BMI 36.49 kg/m? Physical Exam Vitals and nursing note reviewed. Constitutional: Appearance: Normal appearance. Cardiovascular: Rate and Rhythm: Normal rate and regular rhythm. Pulses: Normal pulses. Heart sounds: Normal heart sounds. Pulmonary: Effort: Pulmonary effort is normal. Breath sounds: Normal breath sounds. Musculoskeletal: Comments: Severe tenderness on palpation of the plantar region of the foot. There is some swelling in the ankle Neurological: Mental Status: He is alert. {ASSESSMENT/PLAN: 1. Acute right ankle pain - ICD9: 719.47, 338.19, ICD10: M25.571 (primary diagnosis) - PNEUMATI WALKING BOOT PREFAB 2. Foot pain, right - ICD9: 729.5, ICD10: M79.671 I referred the patient to a group fitness manager a cane walking boot treatments plans to discuss. - XR FOOT GENERAL 3V AP/LAT/OBL RIGHT - PNEUMATI WALKING BOOT PREFAB Scotty Huynh MD Management I performed an independent interpretation of the following:imaging Imaging: My interpretation is No acute finding on x-ray Procedures [facility] 11-12-2024 Telephone encount er Note Mey Yeboah RN, sent secure message: I have Mr Berkowitz on the phone. He said he can't wear the monitor. It makes him break out in a rash. He feels nobody is listening to him. He refuses to wear another one. Also you put him on a medication that makes him fill like a Zombie. He didn't show up for his appt because nobody listens and he ..he went on for approx. 20 min. So I will let you handle it. I told him I would pass on the information. She stated that the patient is very agitated. Spoke with Jeremy Berkowitz. Patient stated that he can not wear the monitor due to it irritating his skin. He stopped taking the Toprol and Ranexa because they do nothing for him. He says he needs further testing due to all the chest pain he is having, especially when he lays down on his left side, he said it is hard for him to breath. He was in the ER on 09/20/24 due to chest pain and he was diagnosed with Influenza A. He stated that his HR went up 125, and he is worried about that. He stated that his HR did come back down. He stated that [facility] will not send him an envelope to send back his monitor. I advised patient to drop it at the office and I will make sure it gets returned to [facility]. Patient was pleasant at this time. He feels he needs further testing. Please advise. Thank you. Claritza Headley RN November 12, 2024 1:48 PM [facility] 11-12-2024 Miscellaneous Notes Formattin g of this note might be different from the original. Mey Yeboah RN, sent secure message: I have Mr Berkowitz on the phone. He said he can't wear the monitor. It makes him break out in a rash. He feels nobody is listening to him. He refuses to wear another one. Also you put him on a medication that makes him fill like a Zombie. He didn't show up for his appt because nobody listens and he ..he went on for approx. 20 min. So I will let you handle it. I told him I would pass on the information. She stated that the patient is very agitated. Spoke with Jeremy Berkowitz. Patient stated that he can not wear the monitor due to it irritating his skin. He stopped taking the Toprol and Ranexa because they do nothing for him. He says he needs further testing due to all the chest pain he is having, especially when he lays down on his left side, he said it is hard for him to breath. He was in the ER on 09/20/24 due to chest pain and he was diagnosed with Influenza A. He stated that his HR went up 125, and he is worried about that. He stated that his HR did come back down. He stated that [facility] will not send him an envelope to send back his monitor. I advised patient to drop it at the office and I will make sure it gets returned to o. Patient was pleasant at this time. He feels he needs further testing. Please advise. Thank you. Claritza Headlye RN November 12, 2024 1:48 PM documented in this encounter [facility] 11-11-2024 Telephone encount er Note [employer] No-Show Documentation Jeremy sullivan showed for an appointment on 11/11/24 with Jose Barrett. at 11:30am. The patient was was scheduled for a follow up appointment. I called and spoke with the patient regarding missed appointment. Yes The patient stated the reason that they missed the appointment was because no answer . Resources discussed/offered to patient: N/A No show determined to be fault of patient: Yes This is the patients first no show in the last 12 months. Patient was rescheduled for n/a. Letter mailed regular mail AND certified : Yes Is this the Third or Fourth "No Show"? Tammy Maradiaga November 11, 2024 3:18 PM [facility] 11-11-2024 Miscellaneous Notes Formattin g of this note might be different from the original. [employer] No-Show Documentation Jeremy Berkowitz no showed for an appointment on 11/11/24 with Jose Barrett. at 11:30am. The patient was was scheduled for a follow up appointment. I called and spoke with the patient regarding missed appointment. Yes The patient stated the reason that they missed the appointment was because no answer . Resources discussed/offered to patient: N/A No show determined to be fault of patient: Yes This is the patients first no show in the last 12 months. Patient was rescheduled for n/a. Letter mailed regular mail AND certified : Yes Is this the Third or Fourth "No Show"? Tammy Maradiaga November 11, 2024 3:18 PM documented in this encounter [facility] 11-08-2024 Note HNO ID: [id number] Author: JOSE BARRETT MD Service: ? Author Type: Physician Type: Progress Notes Filed: 11/08/2024 17:23 Note Text: Abstracted note for future office visit: HISTORY OF PRESENT ILLNESS: Mr. Berkowitz is a 34 year old male who was seen by me on 10 November 2023 as a new patient when he was referred for chest pain, according to my note then: Patient stated that since 2022, and out of the blue, he will having chest pain, over the left side of the chest, with associated left arm tingling, that would last for about 50 seconds or more, with associated SOB, with nausea. Patient also did mention that he was having chest pain when he was active as well "like when I am mowing the grass". . Stress echo, February 2023: - Exam indication: Evaluation of ischemic equivalent - Definity contrast used for endocardial border detection. - The patient has not had a prior CC echocardiographic exam for comparison. Patient exercised on Clyde protocol for only 6 minutes 30 seconds Patient achieved 80% of maximum predicted heart rate there was adequate workload achieved rate-pressure product 180 patient completed 7.7 METS There was noted 1.[address] segment depression in inferior lateral leads consistent with positive ECG response PAST MEDICAL HISTORY Diagnosis Date ADHD (attention deficit hyperactivity disorder) Asthma 02/14/2023 Bipolar 1 disorder (HCC) Chronic obstructive pulmonary disease (COPD) (HCC) GERD (gastroesophageal reflux disease) 02/14/2023 History of stress test 03/07/2023 Stress echo: EF 45-50%, exercise-induced ischemia by EKG, negative for ischemia by echocardiogram LV dysfunction Obesity PTSD (post-traumatic stress disorder) Pulmonary nodule TBI (traumatic brain injury) (HCC) TBI from falling out of a window as a child. PAST SURGICAL HISTORY Procedure Laterality Date BRAIN SURGERY HX EYE SURGERY HX Left Social History Tobacco Use Smoking status: Never Passive exposure: Current Smokeless tobacco: Never Vaping Use Vaping status: Never Used Substance Use Topics Alcohol use: Yes Comment: occasional wine Drug use: Never FAMILY HISTORY Problem Relation Age of Onset other (congestive heart failure) Mother Heart Attack Brother ALLERGIES Allergen Reactions Aspirin Other: See Comments Buspar [Buspirone] Other: See Comments Tylenol [Acetaminop* Other: See Comments CURRENT MEDICATIONS: ranolazine ER (RANEXA) 500 mg 12 hr tablet Take 1 tablet by mouth two times a day. metoprolol succinate ER (TOPROL XL) 25 mg 24 hr tablet Take 0.5 tablets by mouth once daily. QUEtiapine (SEROQUEL) 25 mg tablet (Patient not taking: Reported on 02/15/2024) VRAYLAR 6 mg capsule (Patient not taking: Reported on 02/15/2024) hydrOXYzine pamoate (VISTARIL) 50 mg capsule TAKE 1 CAPSULE BY ORAL ROUTE 2 TIMES EVERY DAY (AM, BEDTIME) NEEDED FOR ANXIETY (Patient not taking: Reported on 02/15/2024) Blood Pressure Monitor Please monitor blood pressure at home 3-5 times a week. Record blood pressure and heart rate hydrOXYzine HCl (ATARAX) 50 mg tablet Take 50 mg by mouth two times a day. (Patient not taking: Reported on 02/15/2024) mirtazapine (REMERON) 30 mg tablet TAKE ONE TABLET BY MOUTH EVERY DAY BEFORE BEDTIME (Patient not taking: Reported on 02/15/2024) OXcarbazepine (TRILEPTAL) 300 mg tablet TAKE ONE TABLET BY MOUTH TWICE A DAY FOR IRRITABILITY AND MOOD (Patient not taking: Reported on 02/15/2024) prazosin (MINIPRESS) 1 mg cap take 1 to 2 capsules by mouth at bedtime for NIGHTMARES. USE CAUTION WHEN CHANGING POSITIONS (Patient not taking: Reported on 02/15/2024) budesonide-formoterol (SYMBICORT) 160-4.5 mcg/actuation inhaler Inhale 2 Puffs as instructed twice daily. pantoprazole DR (PROTONIX) 40 mg tablet Take 1 tablet by mouth once daily. (Patient not taking: Reported on 02/15/2024) Amphetamine-Dextroamphetamine (ADDERALL) 30 mg tablet Take 1 tablet by mouth twice daily. (Patient not taking: Reported on 02/15/2024) fluticasone (FLONASE) 50 mcg/actuation nasal spray Fluticasone Propionate* ([id number] GM) 16 GM SPRAY.SUSP Active 1 SPRAY NS 2 TIMES DAILY November 05, 2021 12:08pm topiramate (TOPAMAX) 50 mg tablet take 1 tablet by mouth every morning for MOOD SWINGS (Patient not taking: Reported on 02/15/2024) venlafaxine XR (EFFEXOR XR) 225 mg tr24 take 1 tablet by mouth daily IN THE MORNING with food Last ECHO Result Conclusion ECHO Collected: 11/15/2023 11:05 AM (Final result) Impression: CONCLUSIONS: - Exam indication: Chest Pain - The left ventricle is normal in size. Left ventricular systolic function is normal. EF = 57 ? 5% (2D biplane) Normal left ventricular diastolic function. - The right ventricle is normal in size. Right ventricular systolic function is normal. - Exam was compared with the prior echocardiographic exam performed on 03/07/2023 * * * Silvia (more content not included)... [facility] 11-08-2024 History of Presen t illness Narrative Abstracted note for future office visit: HISTORY OF PRESENT ILLNESS: Mr. Berkowitz is a 34 year old male who was seen by me on 10 November 2023 as a new patient when he was referred for chest pain, according to my note then: Patient stated that since 2022, and out of the blue, he will having chest pain, over the left side of the chest, with associated left arm tingling, that would last for about 50 seconds or more, with associated SOB, with nausea. Patient also did mention that he was having chest pain when he was active as well "like when I am mowing the grass". . Stress echo, February 2023: - Exam indication: Evaluation of ischemic equivalent - Definity contrast used for endocardial border detection. - The patient has not had a prior CC echocardiographic exam for comparison. Patient exercised on Clyde protocol for only 6 minutes 30 seconds Patient achieved 80% of maximum predicted heart rate there was adequate workload achieved rate-pressure product 180 patient completed 7.7 METS There was noted 1.[address] segment depression in inferior lateral leads consistent with positive ECG response PAST MEDICAL HISTORY Diagnosis Date ADHD (attention deficit hyperactivity disorder) Asthma 02/14/2023 Bipolar 1 disorder ([facility]) Chronic obstructive pulmonary disease (COPD) ([facility]) GERD (gastroesophageal reflux disease) 02/14/2023 History of stress test 03/07/2023 Stress echo: EF 45-50%, exercise-induced ischemia by EKG, negative for ischemia by echocardiogram LV dysfunction Obesity PTSD (post-traumatic stress disorder) Pulmonary nodule TBI (traumatic brain injury) ([facility]) TBI from falling out of a window as a child. PAST SURGICAL HISTORY Procedure Laterality Date BRAIN SURGERY HX EYE SURGERY HX Left Social History Tobacco Use Smoking status: Never Passive exposure: Current Smokeless tobacco: Never Vaping Use Vaping status: Never Used Substance Use Topics Alcohol use: Yes Comment: occasional wine Drug use: Never FAMILY HISTORY Problem Relation Age of Onset other (congestive heart failure) Mother Heart Attack Brother ALLERGIES Allergen Reactions Aspirin Other: See Comments Buspar [Buspirone] Other: See Comments Tylenol [Acetaminop* Other: See Comments CURRENT MEDICATIONS: ranolazine ER (RANEXA) 500 mg 12 hr tablet Take 1 tablet by mouth two times a day. metoprolol succinate ER (TOPROL XL) 25 mg 24 hr tablet Take 0.5 tablets by mouth once daily. QUEtiapine (SEROQUEL) 25 mg tablet (Patient not taking: Reported on 02/15/2024) VRAYLAR 6 mg capsule (Patient not taking: Reported on 02/15/2024) hydrOXYzine pamoate (VISTARIL) 50 mg capsule TAKE 1 CAPSULE BY ORAL ROUTE 2 TIMES EVERY DAY (AM, BEDTIME) NEEDED FOR ANXIETY (Patient not taking: Reported on 02/15/2024) Blood Pressure Monitor Please monitor blood pressure at home 3-5 times a week. Record blood pressure and heart rate hydrOXYzine HCl (ATARAX) 50 mg tablet Take 50 mg by mouth two times a day. (Patient not taking: Reported on 02/15/2024) mirtazapine (REMERON) 30 mg tablet TAKE ONE TABLET BY MOUTH EVERY DAY BEFORE BEDTIME (Patient not taking: Reported on 02/15/2024) OXcarbazepine (TRILEPTAL) 300 mg tablet TAKE ONE TABLET BY MOUTH TWICE A DAY FOR IRRITABILITY AND MOOD (Patient not taking: Reported on 02/15/2024) prazosin (MINIPRESS) 1 mg cap take 1 to 2 capsules by mouth at bedtime for NIGHTMARES. USE CAUTION WHEN CHANGING POSITIONS (Patient not taking: Reported on 02/15/2024) budesonide-formoterol (SYMBICORT) 160-4.5 mcg/actuation inhaler Inhale 2 Puffs as instructed twice daily. pantoprazole DR (PROTONIX) 40 mg tablet Take 1 tablet by mouth once daily. (Patient not taking: Reported on 02/15/2024) Amphetamine-Dextroamphetamine (ADDERALL) 30 mg tablet Take 1 tablet by mouth twice daily. (Patient not taking: Reported on 02/15/2024) fluticasone (FLONASE) 50 mcg/actuation nasal spray Fluticasone Propionate* ([id number] GM) 16 GM SPRAY.SUSP Active 1 SPRAY NS 2 TIMES DAILY November 05, 2021 12:08pm topiramate (TOPAMAX) 50 mg tablet take 1 tablet by mouth every morning for MOOD SWINGS (Patient not taking: Reported on 02/15/2024) venlafaxine XR (EFFEXOR XR) 225 mg tr24 take 1 tablet by mouth daily IN THE MORNING with food Last ECHO Result Conclusion ECHO Collected: 11/15/2023 11:05 AM (Final result) Impression: CONCLUSIONS: - Exam indication: Chest Pain - The left ventricle is normal in size. Left ventricular systolic function is normal. EF = 57 5% (2D biplane) Normal left ventricular diastolic function. - The right ventricle is normal in size. Right ventricular systolic function is normal. - Exam was compared with the prior echocardiographic exam performed on 03/07/2023 * * * Final * * * Last EKG Result Conclusion ECG COMPLETE Collected: 09/20/2024 1:29 PM (Final result) Impression: Sinus tachycardia Nonspecific T wave abnormality Abnormal ECG When compared with ECG of 25-Apr-2023 11:34, Nonspecific T wave abnormality now evident in Lateral leads Confirmed by [facility] ([id number]) on 09/21/2024 3:28:[address] Result Conclusion CTA CORONARY W IVCON Exam End: 03/04/2024 8:54 AM (Final result) Impression: IMPRESSION: NO EVIDENCE OF ATHEROSCLEROTIC CHANGES OR LUMINAL STENOSIS OF THE CORONARY ARTERIES -distal segments and branches are not well visualized. CAD-RADS 0: No plaque or luminal stenosis. Absence of CAD. - Overall Plaque [place]: No evidence of plaque LEFT VENTRICLE: normal size with normal systolic function; LV EF = 65 %; LV EDV 147 ml; LVmass 110 g Right ventricle: normal size and normal function on qualitative assessment. Crisis Clinician: SU Transcribe Date/Time: Mar 04 2024 8:56A Dictated by : GRETCHEN WILSON MD This examination was interpreted and the report reviewed and electronically signed by: OLIVA BUCIO MD on Mar 04 2024 10:51AM EST Past 72 Hour Labs: Last Lab Drawn: No results found for this basename: TSH,PROBNP,TG,HDL,LDL,CHOL IMPRESSION: Chest pain, comes on with and without activities. Patient was very concerned about his symptoms I do not know and the unknown scares me". Subsequently patient was seen by me and then had a cardiac CTA done in February 2024 showing: Left main normal LAD normal Ramus intermedius small size vessel about normal Circumflex normal RCA normal SELBY. Echocardiogram and October 2023 showing normal ejection fraction normal RV size Abnormal ECG part of treadmill stress Echo Limited treadmill stress Echo in February 2023 by images as well as by distance on the treadmill: - Definity contrast used for endocardial border detection. Patient exercised on Clyde protocol for only 6 minutes 30 seconds Patient achieved 80% of maximum predicted heart rate there was adequate workload achieved rate-pressure product 180 patient completed 7.7 METS There was noted 1.[address] segment depression in inferior lateral leads consistent with positive ECG response Mildly reduced LVEF on baseline Echocardiogram as part of stress echo. Obesity, moderate. COPD GERD ADHD/Bipolar DO Pulmonary nodule, stable over all according to him. Risk factor: Second hand smoker and family history. PLAN AND RECOMMENDATIONS: Will refer you for Coronary cardiac CTA, Dx chest pain. Will refer you for full Echocardiogram to assess your chest pain. Return to clinic in 12 months documented in this encounter [facility] 10-31-2024 Discharge summary [facility] 10-31-2024 Discharge summary Note Date/Time October 31, 2024 10:28pm [facility] Medical Records Department [address] [place] [address] Emergency Department Summary 10/31/24 MR#: [id number] Acct: [id number] Name: JEREMY BERKOWITZ Sr. Rep #:[id number] : 1990 34 From: Junior Ovalle MD PCP: NOT,DEFINED Status:PRE ER Location: ED HPI History of Present Illness Chief Complaint: Abscess Informant: patient Narrative Narrative: Healthy 34-year-old noticed a painful swollen area right side of his face that he thinks may be an ingrown hair. No fevers, chills, systemic symptoms. He states that he noticed it this morning, squeezed it and got a small amount of pus out of it, and it "has refilled throughout the day." [facility] Medical History Traumatic brain injury Home Medications ?Medication ?Instructions ?Recorded ?Last Taken ?Type mupirocin 2 % topical ointment 1 applic topical BID NM N skin 10/31/24 Unknown Rx infection #15 grams Allergy/AdvReac Type Severity Reaction Status Date / Time aspirin AdvReac Intermediate NOSEBLEEDS Verified 10/31/24 22:04 buspirone (From BuSpar) AdvReac Intermediate HALLUCINATI Verified 10/31/24 22:04 ONS acetaminophen (From Tylenol) AdvReac NOSEBLEEDS Verified 10/31/24 22:04 Surgical History Hx of eye surgery Social History Smoking Status: Never smoker ROS ROS ED Constitutional Constitutional ED: Denies chills or fever(s) Eyes Eyes: Denies change in vision ENT ENT ED: Denies ear pain or sore throat Respiratory/Chest Respiratory/Chest: Denies dyspnea Gastrointestinal Gastrointestinal: Denies nausea or vomiting Integumentary Reports abscess Neurologic Neurologic: Denies headache(s), paresthesias or weakness EXAM Physical Exam Const Vital Signs: 10/31/24 22:02 Temperature 98.0 F Temperature Source Temporal Pulse Rate 73 Respiratory Rate 16 Blood Pressure 130/86 H Blood Pressure Mean 100 Pulse Ox 98 Oxygen Delivery Method Room Air Positive well nourished and well developed Constitutional Narrative: Well-appearing in no distress General Appearance ED: well developed and NAD HEENT HEENT Narrative: [place] is shaved flush with the skin. On the right cheek within this area, thereis a small tender pustule with a small amount of surrounding erythema, there is no induration or fluctuance and I do not feel a subcutaneous capsule to suggest an abscess. Eyes PERRL and EOMs intact bilaterally Neck no lymphadenopathy and supple Resp normal respiratory effort Extremity normal to inspection Neuro oriented x3, CN's II-XII intact bilaterally and no sensory deficits noted Motor Exam: strength 5/5 throughout Psych mental status grossly normal Skin Skin Narrative: No rashes. Small pustule right side of face see above. MDM MDM MDM Narrative Medical decision making narrative: Patient really wants me to perform an incision and drainage with a needle. I told him I think this is simply a pustule he thinks it is an ingrown hair, I told him regardless if he was getting stuff out when he squeezed it, then he could continue doing that and use topical treatments, and we did a simple incision and drainage see the procedure note. Prescribed mupirocin and advised with regards to use. Procedures Other Procedures Procedure(s): Simple incision and drainage right facial pustule: Verbal consent obtained, timeout performed. Sterile prep with isopropanol, followed by local anesthesia with sterile freeze spray just until in local ED started to turn white, and then the pustule was stabbed with a 21-gauge needle, superficially only. Scant amount of blood, no pus, gently squeezed and no other pus. Dressedwith a bandage, nursing to redress with me present after patient feels prescription here. Tolerated well no complications. Discharge Plan Triage Chief Complaint: Abscess ED Provider: Junior Ovalle Dx/Rx/DC Orders Clinical Impression: Skin pustule Instructions: ED Abscess Incision And Drainage Prescriptions: New mupirocin 2 % ointment 1 applic topical BID PRN (Reason: skin infection) Qty: 15 0RF Primary Care Provider: NOT,DEFINED Referrals: Doctor,Your [Non-Staff] - 3-5 Days if not improving Print Language: Ivorian Disposition Disposition: Home, Self Care What to do if you have Problems For any increased pain, shortness of breath, bleeding, nausea or vomiting, chestpain, or any unexpected problems, contact your Primary Care Provider. Call [facility] ([phone]) or report to the closest Emergency Room. Call 911 if necessary. 10/31/242227 <Electronically signed by Junior Ovalle MD> Cosigner Signature (if applicable): CC: DEFINED NOT ~ Signed [facility] Work Phone: [phone]) 851-876001-24-2025 [id number] (AGENT OF COVID-19) RNA: Not detected INFLUENZA A RNA: Detected INFLUENZA B RNA: Not detected RESPIRATORY SYNCYTIAL VIRUS (RSV) RNA: Not detectedUniversity Tuberculosis HospitalComment on above:Performed By: #### [id number] ####[facility] LABORATORYCLIA [id number] [address] [id number] Telephone encounter Note* Telephone Encounter - Claritza Headley RN - 09/19/2024 1:37 PM EST This issue is being addressed in a separate encounter. Claritza Headley RN [facility]01-23-2025 Miscellaneous Notes* Telephone Encounter - Claritza Spencer RN - 09/19/2024 1:37 PM EST This issue is being addressed in a separate encounter. Claritza Headley RN * Telephone Encounter - Cecy Leon - 09/19/2024 12:20 PM EST Patient called wanting to know if Dr. Barrett put in a new order for heart monitor. He stated that he hasn't received a new one yet. He also stated that he can't put it on himself because he doesn't know exactly where it should be placed. Please call him @ [phone]. * Telephone Encounter - Claritza Headley RN - 09/03/2024 10:58 AM EST Spoke with Jeremy Berkowitz. Per Dr. Barrett, Was he having similar symptoms when he carried the heart monitor, if no, then should consider carrying another monitor, thanks a lot. Patient is agreeable to recommendations. However patient stated that the last time he wore the Zio monitor it caused a rash. Patient was asking if there is any other monitor to wear. I did explain that the Zio monitor is what we use here inthe office. He stated that if that is his only option that is fine and he will make due. He also stated that he would need a note for the courts to let them them know he is required to wear the monitor. Claritza Headley RN September 03, 2024 11:01 AM * Telephone Encounter - Carlie Hooker - 08/29/2024 10:29 AM EST Pt is calling states he is having a lot of issues with SOB, chest pain, waking up w headaches daily. 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 Is asking for a sooner appointment or asking what Dr Barrett advises. documented in this encounterMemorial [facility]01-23-2025 Telephone encounter Note * Telephone Encounter - Claritza Headley RN - 09/19/2024 1:32 PM EST Per patient Jeremy Berkowitz: Patient called wanting to know if Dr. Barrett put in a new order for heart monitor. He stated that he hasn't received a new one yet. He also stated that he can't put it on himselfbecause he doesn't know exactly where it should be placed. Please call him @ [phone]. LMOM for Jeremy Berkowitz to return call to the office. I will place a new order for the monitor. Will call with date/time to have it put on. Claritza Headley RN September 19, 2024 1:35 PM [facility]01-23-2025 Miscellaneous Notes* Telephone Encounter - Claritza Spencer RN - 09/19/2024 1:32 PM EST Per patient Jeremy Berkowitz: Patient called wanting to know if Dr. Barrett put in a new order for heart monitor. He stated that he hasn't received a new one yet. He also stated that he can't put it on himselfbecause he doesn't know exactly where it should be placed. Please call him @ [phone]. LMOM for Jeremy Berkowitz to return call to the office. I will place a new order for the monitor. Will call with date/time to have it put on. Claritza Headley RN September 19, 2024 1:35 PM documented in this encounterMemorial Health System [facility]01-23-2025 Telephone encounter Note * Telephone Encounter - Cecy Leon - 09/19/2024 12:20 PM EST Patient called wanting to know if Dr. Barrett put in a new order for heart monitor. He stated that he hasn't received a new one yet. He also stated that he can't put it on himself because he doesn't know exactly where it should be placed. Please call him @ [phone]. [facility]01-17-2025 NoteHNO ID: [id number] Author: CHILO MCCALL EKG Tech Service: ? Author Type: Licensed Physical Therapist Assistant Type: Progress Notes Filed: 09/13/2024 11:24 Note Text: [facility] Jeremy Berkowitz : 1990 Jeremy Berkowitz here for ZIO AT (Telemetry - No Hookup Charge) holter monitor placement on 09/13/2024 . Patient complains of chest pain unspecified. Holter serial number [id number] placed per protocol. Diary given to patient and educated on use. Patient instructed to remove monitor in 14 days and return monitor through [employer]. SELINA YangUniversity Tuberculosis Hospital01-17-2025 History of Present illness Narrative* Chilo Mccall EKG Tech - 09/13/2024 11:23 AM EST Images from the original note were not included. [facility] Jeremy Berkowitz : 1990 Jeremy Berkowitz here for ZIO AT (Telemetry - No Hookup Charge) holter monitor placement on 09/13/2024 . Patient complains of chest pain unspecified. Holter serial number [id number] placed per protocol. Diary given to patient and educated on use. Patient instructed to remove monitor in 14 days and return monitor through [employer]. SELINA Yang documented in this encounterMemorial Health System [facility] Hospital01-07-2025 Telephone encounter Note * Telephone Encounter - Claritza Headley RN - 09/03/2024 10:58 AM EST Spoke with Jeremy Berkowitz. Per Dr. Barrett, Was he having similar symptoms when he carried the heart monitor, if no, then should consider carrying another monitor, thanks a lot. Patient is agreeable to recommendations. However patient stated that the last time he wore the Zio monitor it caused a rash. Patient was asking if there is any other monitor to wear. I did explain that the Zio monitor is what we use here inthe office. He stated that if that is his only option that is fine and he will make due. He also stated that he would need a note for the courts to let them them know he is required to wear the monitor. Claritza Headley RN September 03, 2024 11:01 AM [facility]01-02-2025 Telephone encounter Note* Telephone Encounter - Carlie Hooker - 08/29/2024 10:29 AM EST Pt is calling states he is having a lot of issues with SOB, chest pain, waking up w headaches daily. 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 Is asking for a sooner appointment or asking what Dr Barrett advises. [facility]10-08-2024 Telephone encounter Note* Telephone Encounter - Claritza Headley RN - 06/04/2024 9:08 AM EDT Spoke to patient, per Dr. Barrett, Could make him dizzy and clammy or foggy but doubt that it is causing his BP rise. He can hold it for a week and reassess his symptoms, he should check his BP regularly, thanks. Patient verbalized understanding. Patient to reassess symptoms and call back next week. Claritza Headley RN [facility]10-08-2024 Miscellaneous Notes* Telephone Encounter - Claritza Spencer RN - 06/04/2024 9:08 AM EDT Spoke to patient, per Dr. Barrett, Could make him dizzy and clammy or foggy but doubt that it is causing his BP rise. He can hold it for a week and reassess his symptoms, he should check his BP regularly, thanks. Patient verbalized understanding. Patient to reassess symptoms and call back next week. Claritza Headley RN * Telephone Encounter - Carlie Hooker - 06/03/2024 3:52 PM EDT Pt is calling states he thinks he is having a reaction to his metoprolol hands are very clammy, brain fog and dizzy, pt was talking to his mom and started yelling, he got very hot and his BP went very high then it came back down but his hands are still clammy he doesn't know if this is normal documented in this encounterMemorial Health [facility]10-07-2024 Telephone encounter Note * Telephone Encounter - Carlie Hooker - 06/03/2024 3:52 PM EDT Pt is calling states he thinks he is having a reaction to his metoprolol hands are very clammy, brain fog and dizzy, pt was talking to his mom and started yelling, he got very hot and his BP went very high then it came back down but his hands are still clammy he doesn't know if this is normal [facility]10-02-2024 Telephone encounter Note* Telephone Encounter - Claritza Headley RN - 05/29/2024 1:23 PM EDT Spoke with patient, per Dr. Barrett, If he is still having symptoms, we can start him on low-dose of beta-khai, Toprol-XL 12.[address] scan does not show any evidence of obstructive coronary artery disease which is reassuring, that was done in February of this year. Patient is agreeable to above recommendations. Claritza Headley RN [facility]10-02-2024 Miscellaneous Notes* Telephone Encounter - Claritza Spencer RN - 05/29/2024 1:23 PM EDT Spoke with patient, per Dr. Barrett, If he is still having symptoms, we can start him on low-dose of beta-khai, Toprol-XL 12.[address] scan does not show any evidence of obstructive coronary artery disease which is reassuring, that was done in February of this year. Patient is agreeable to above recommendations. Claritza Headley RN * Telephone Encounter - Claritza Headley RN - 05/28/2024 2:50 PM EDT Spoke with patient, per Dr. Barrett, Overall is normal, patient had few premature beats, nothing surprising or concerning. Patient verbalized understanding. Patient stated that he is still having heart problems. He stated when he lays down at night on his left side that he coughs, breathing heavy and his heart rate is 58-60. Advised patient that is normal heart rate. He stated it is not normal. He also stated that when he is walking his heart rate is 100, also having chest pain(sometimes lasting 2-3 minutes, then goes away). He stated that he gets chest pain every now and then. Patient was asking to have that testing done where they look at his heart. Clarified that patient was asking about a heart cath. Patient also stated that he is going to have someone come and drop off the other part of the monitor so it can get shipped back. He stated that he is currently out of town due to being on the run from the police because he has sn active warrant out for his arrest due to aggravated menacing. Claritza Headley RN * Telephone Encounter - Claritza Headley RN - 05/23/2024 3:56 PM EDT Patient called wanting results of his monitor. Please advise. Thank you. Claritza Headley RN documented in this encounterMemorial Health [facility]10-01-2024 Telephone encounter Note * Telephone Encounter - Claritza Headley RN - 05/28/2024 2:50 PM EDT Spoke with patient, per Dr. Barrett, Overall is normal, patient had few premature beats, nothing surprising or concerning. Patient verbalized understanding. Patient stated that he is still having heart problems. He stated when he lays down at night on his left side that he coughs, breathing heavy and his heart rate is 58-60. Advised patient that is normal heart rate. He stated it is not normal. He also stated that when he is walking his heart rate is 100, also having chest pain(sometimes lasting 2-3 minutes, then goes away). He stated that he gets chest pain every now and then. Patient was asking to have that testing done where they look at his heart. Clarified that patient was asking about a heart cath. Patient also stated that he is going to have someone come and drop off the other part of the monitor so it can get shipped back. He stated that he is currently out of town due to being on the run from the police because he has sn active warrant out for his arrest due to aggravated menacing. Claritza Headley RN [facility]09-27-2024 Telephone encounter Note* Telephone Encounter - Claritza Headley RN - 05/24/2024 12:49 PM EDT Addressed in a separate encounter.. Claritza Headley RN [facility]09-27-2024 Miscellaneous Notes* Telephone Encounter - Claritza Spencer RN - 05/24/2024 12:49 PM EDT Addressed in a separate encounter.. Claritza Headley RN * Telephone Encounter - Carlie Hooker - 05/23/2024 3:57 PM EDT Pt is calling asking to go over monitor results told pt we will call beginning of next week documented in this encounterMemorial [facility]09-26-2024 Telephone encounter Note * Telephone Encounter - Carlie Hooker - 05/23/2024 3:57 PM EDT Pt is calling asking to go over monitor results told pt we will call beginning of next week [facility]09-26-2024 Telephone encounter Note* Telephone Encounter - Claritza Headley RN - 05/23/2024 3:56 PM EDT Patient called wanting results of his monitor. Please advise. Thank you. Claritza Headley RN [facility]07-22-2024 Telephone encounter Note* Telephone Encounter - Mey Yeboah RN - 03/18/2024 3:13 PM EDTSummary: Event monitor needs interpreted Please interpret ZIO event monitor IMPORTANT!!! If order was placed prior to 01/09/24, please log into [email or web address] to interpret this patient's event monitor SUDHA. Also please remember to copy and paste your final interpretation from [employer]io[employer] into EPIC and add your billing codes. If order was placed on or after 01/09/24, please check your EPIC in-basket under the Steel Detailer folder and interpret from there. Thank you, Mey Yeboah RN [facility]07-22-2024 Miscellaneous Notes* Telephone Encounter - Mey Yeboah RN - 03/18/2024 3:13 PM EDTSummary: Event monitor needs interpreted Please interpret ZIO event monitor IMPORTANT!!! If order was placed prior to 01/09/24, please log into [email or web address] to interpret this patient's event monitor SUDHA. Also please remember to copy and paste your final interpretation from [employer] into EPIC and add your billing codes. If order was placed on or after 01/09/24, please check your EPIC in-basket under the Steel Detailer folder and interpret from there. Thank you, Mey Yeboah RN documented in this encounterMemorial Health [facility]07-22-2024 Telephone encounter Note * Telephone Encounter - Mey Yeboah RN - 03/18/2024 11:56 AM EDTSummary: Event monitor neds interpreded Please interpret ZIO event monitor IMPORTANT!!! If order was placed prior to 01/09/24, please log into [email or web address] to interpret this patient's event monitor SUDHA. Also please remember to copy and paste your final interpretation from [employer] into EPIC and add your billing codes. If order was placed on or after 01/09/24, please check your EPIC in-basket under the Steel Detail[employer] folder and interpret from there. Thank you, Mey Yeboah RN [facility]07-22-2024 Miscellaneous Notes* Telephone Encounter - Mey Yeboah RN - 03/18/2024 11:56 AM EDTSummary: Event monitor neds interpreded Please interpret ZIO event monitor IMPORTANT!!! If order was placed prior to 01/09/24, please log into [email or web address] to interpret this patient's event monitor SUDHA. Also please remember to copy and paste your final interpretation from [employer] into E[employer]ch and add your billing codes. If order was placed on or after 01/09/24, please check your EPIC in-basket under the Steel Detailer folder and interpret from there. Thank you, Mey Yeboah RN documented in this encounterMemorial Health [facility]07-17-2024 Telephone encounter Note * Telephone Encounter - Maura Cancino RN - 03/13/2024 1:34 PM EDT Zio report is pending final interpretation. [facility]07-17-2024 Miscellaneous Notes* Telephone Encounter - Maura Cancino RN - 03/13/2024 1:34 PM EDT Zio report is pending final interpretation. * Telephone Encounter - Carlie Hooker - 03/06/2024 1:19 PM EDT Pt is calling states his sister dropped the heart monitor off at our office he is asking to find it. Claritza says we do not have the monitor she checked w everyone downstairs and CDL,she states pt is still wearing transmitter we need him to bring that in but she states we never received part he says was dropped off by his sister pt also wants the results Dr Barrett was able to go in and look at what Ivette had. documented in this encounterMemorial Health [facility]07-10-2024 Telephone encounter Note * Telephone Encounter - Carlie Hooker - 03/06/2024 1:19 PM EDT Pt is calling states his sister dropped the heart monitor off at our office he is asking to find it. Claritza says we do not have the monitor she checked w everyone downstairs and CDL,she states pt is still wearing transmitter we need him to bring that in but she states we never received part he says was dropped off by his sister pt also wants the results Dr Barrett was able to go in and look at what Ivette had. [facility]07-09-2024 Telephone encounter Note* Telephone Encounter - Claritza Headley RN - 03/05/2024 10:45 AM EDT Spoke with patient. Per Dr. Barrett, Please notify patient, CT scan does not show significant coronarydisease. Patient very upset with this result. Patient stated "where do I go from here. I have to wait an entire year to see my doctor". He also stated do I continue to see the metal hanger and heartdoctor. I advised patient that is his decision. Which got him more angry with me. Patient stated why can't I speak to my doctor and always have to speak with you nurses. I have every right to talk zarina doctor. I advised patient I would reach out to Dr. Barrett and see if he can speak to the patient. Patient stated that just yesterday 03/04 when he had his CTA that he fell to his knees with chest pain. Patient stated there is something wrong with my body and it's not stress causing his chest pain. Claritza Headley RN [facility]07-09-2024 Miscellaneous Notes* Telephone Encounter - Claritza Spencer RN - 03/05/2024 10:45 AM EDT Spoke with patient. Per Dr. Barrett, Please notify patient, CT scan does not show significant coronarydisease. Patient very upset with this result. Patient stated "where do I go from here. I have to wait an entire year to see my doctor". He also stated do I continue to see the metal hanger and heartdoctor. I advised patient that is his decision. Which got him more angry with me. Patient stated why can't I speak to my doctor and always have to speak with you nurses. I have every right to talk zarina doctor. I advised patient I would reach out to Dr. Barrett and see if he can speak to the patient. Patient stated that just yesterday 03/04 when he had his CTA that he fell to his knees with chest pain. Patient stated there is something wrong with my body and it's not stress causing his chest pain. Claritza Headley RN * Telephone Encounter - Claritza Headley RN - 03/05/2024 10:29 AM EDT LMOM for patient to return call to the office. Claritza Headley RN documented in this encounterMemorial Health [facility]07-09-2024 Telephone encounter Note * Telephone Encounter - Claritza Headley RN - 03/05/2024 10:29 AM EDT LMOM for patient to return call to the office. Claritza Headley RN [facility]07-08-2024 History of Present illness Narrative* Keyla Lindquist, RT(R) - 03/04/2024 8:00 AM EDTSummary: CT Radiology Service Progress Note DATE OF SERVICE: March 04, 2024 TIME: 8:56 AM PATIENT IDENTITY VERIFICATION COMPLETED USING TWO (2) STANDARD IDENTIFIERS: Name and Date of confirmed by patient verbally. FALL SCREENING: Has the patient had 2 falls in the last year or 1 fall with injury or currently using an Ambulatory Assistive Device (Walker, Cane, Wheelchair, Crutches, etc.)? No PATIENT GENDER DATA: Male PATIENT RELEVANT IMPLANT DATA REVIEWED: Not Applicable PATIENT PRESENTS WITH AN IMPLANTABLE OR ATTACHED SOUND CUTTER: No ALLERGIES: Reviewed and unchanged CONTRAST ALLERGY: NO. EXAM: CT -CONTRAST INDUCED NEPHROPATHY RISK FACTORS: Not applicable CREATININE: Creatinine Date Value Ref Range Status 04/25/2023 1.09 0.50 - 1.40 mg/dL Final Comment: Patients receiving either N-Acetylcysteine (NAC) or Metamizole prior to venipuncture, may have falsely depressed results. 11/14/2021 0.95 0.5 - 1.4 MG/DL Final Comment: NOTE NEW NORMAL RANGE DUE TO REAGENT CHANGE Patients receiving either N-Acetylcysteine (NAC) or Metamizole prior to venipuncture, may have falsely depressed results. Estimated Glomerular Filtration Rate Date Value Ref Range Status 04/25/2023 92 >=60 mL/min/1.73m Final Comment: Estimated Glomerular Filtration Rate (eGFR) is calculated using the 2020 CKD-EPI creatinine equation. This equation utilizes serum creatinine, sex, and age as parameters. The creatinine assay has traceable calibration to isotope dilution- mass spectrometry. Refer to KDIGO guidelines for clinical interpretation. In patients with unstable renal function, e.g. those with acute kidney injury, the eGFRmay not accurately reflect actual GFR. eGFR- Date Value Ref Range Status 11/14/2021 Greater than 60 Final P.O.C.T. RESULTS: POC done: Yes, See Lab Tab March 04, 2024 TREATMENT: N/A PERIPHERAL IV DATA: Ambulatory: A peripheral IV was started in the Right antecubital site with a Angio cath: 20 gauge. RADIOLOGY DEPARTMENT: CT; Exam(s) Completed: CTA Cardiac SIGNATURE: RT Viet(R) PATIENT NAME: Jeremy Berkowitz DATE: March 04, 2024 TIME: 8:56 AM documented in this encounterMemorial [facility]2024 Telephone encounter Note * Telephone Encounter - Davina Heredia APRN.CNP - 02/19/2024 11:29 PM EDT Summary: Inhaler refills Please call patient if you feel comfortable and direct him to call his PCP for further inhaler refills since he cannot get into see pulmonology until later this summer. Thank you [facility]2024 Miscellaneous Notes* Telephone Encounter - Davina Heredia APRN.CNP - 02/19/2024 11:29 PM EDTSummary: Inhaler refills Please call patient if you feel comfortable and direct him to call his PCP for further inhaler refills since he cannot get into see pulmonology until later this summer. Thank you * Telephone Encounter - Ekta Del Real - 02/19/2024 1:36 PM EDT Patient left a voicemail stating that he was in the office on Monday to see Davina and was told to go to pulmonology to get his inhalers refilled. Patient states that when he went up to their office they were already closed for the day. He called them today and was told that he needs to be seen by them and the soonest appointment they have is in March. He would like to know if there is anything that we could do. Please call the patient back at [phone]. documented in this encounterMem[facility] Telephone encounter Note * Telephone Encounter - Ekta Del Real - 02/19/2024 1:36 PM EDT Patient left a voicemail stating that he was in the office on Monday to see Davina and was told to go to pulmonology to get his inhalers refilled. Patient states that when he went up to their office they were already closed for the day. He called them today and was told that he needs to be seen by them and the soonest appointment they have is in March. He would like to know if there is anything that we could do. Please call the patient back at [phone]. [facility]06-21-2024 Telephone encounter Note* Telephone Encounter - Nevin Rocha MA - 02/16/2024 8:55 AM EDT Pt called states he needs refills on his inhalers as well as an appt. Let him know he was last seen02/14/23 and was supposed to follow up 6 weeks after with testing. Pt claims no one called him. Tried to offer soonest available appt in [place] on 04/03 pt refused as he will not drive that far. Let him know next available at [facility] was end of Mar. Pt stated yes but to put him on a cancelation list. He needs to be sooner due to having breathing trouble. Has been seen by cardiology for the year, and nowneeds to come back to pulmonary. I tried to reason with pt he told me "dont say you understand cause you dont know my body I need seen sooner. You know I can get legal involved" Pt was irrate and stated he needs his refills now. I told him I would send a message to the provider but that does not guarantee that it will be filled as he has not been seen in a year. Scheduled next follow up and addedto wait list. Dr. Rojas please advise. Please look at TE from 03/13/23 from last year, documenting on pt also being irate when speaking with Alana. *See Binh 03/09/2023 03/13/2023 04/04/2023 (Pt states he showed up 15 mins after PFT start time and told he couldn't be seen, PFTS have multiple visit times due to the separation of orders) *See FYI from 03/13/2023 Liliane Hutson : Spoke to pt to reschedule Pulmonary testing from his approvedreferral, pt refused to reschedule appts at this time, he also stated "DO NOT CALL ME ABOUT MY LUNGS ANYMORE, ONLY MY HEART" [facility]06-21-2024 Miscellaneous Notes* Telephone Encounter - Nevin Rocha MA - 02/16/2024 8:55 AM EDT Pt called states he needs refills on his inhalers as well as an appt. Let him know he was last seen02/14/23 and was supposed to follow up 6 weeks after with testing. Pt claims no one called him. Tried to offer soonest available appt in [place] on 04/03 pt refused as he will not drive that far. Let him know next available at [facility] was end of Mar. Pt stated yes but to put him on a cancelation list. He needs to be sooner due to having breathing trouble. Has been seen by cardiology for the year, and nowneeds to come back to pulmonary. I tried to reason with pt he told me "dont say you understand cause you dont know my body I need seen sooner. You know I can get legal involved" Pt was irrate and stated he needs his refills now. I told him I would send a message to the provider but that does not guarantee that it will be filled as he has not been seen in a year. Scheduled next follow up and addedto wait list. Dr. Rojas please advise. Please look at TE from 03/13/23 from last year, documenting on pt also being irate when speaking with Alana. *See Binh 03/09/2023 03/13/2023 04/04/2023 (Pt states he showed up 15 mins after PFT start time and told he couldn't be seen, PFTS have multiple visit times due to the separation of orders) *See FYI from 03/13/2023 Liliane Hutson : Spoke to pt to reschedule Pulmonary testing from his approvedreferral, pt refused to reschedule appts at this time, he also stated "DO NOT CALL ME ABOUT MY LUNGS ANYMORE, ONLY MY HEART" documented in this encounterMemorial [facility]06-20-2024 Instructions* Patient Instructions* Davina Heredia APRN.CNP - 02/15/2024 2:49 PM EDT Always bring an updated medication list to every appointment. Your next appointment has been scheduled 03/04/2024 for CTA at [facility]. Have Dr Ruiz refill inhalers sudha Continue with Mucinex Keep a blood pressure log and bring to next appointment. Call for results of any testing/ lab work. Eat a no added salt diet. Patient instructed to follow a low cholesterol diet. Limit total intake of fats, oils and sweets. Avoid any fried foods. Fish, turkey,lean meats, nonfat dairy products, steamed vegetables and whole grains are all better choices for a low cholesterol diet. Discussed importance of regular exercise and recommended starting or continuing a regular aerobic exercise program for good health. Exercising five times a week for 30-45 min is ideal, but start slowly. Begin at 15 minutes the first week and gradually increase every week by 5 minutes. If you experience chest pain, increasing shortness of breath, palpitations, stop exercise until symptoms go away,you can then resume activities. Watch for cardiac symptoms or any changes, if they persist call physician immediately. Wearing support stockings can help reduce fluid retention. Follow up with all other providers. Continue all current medications at this time. Call for any cardiac medication refills. Please call our office with any questions or concerns. documented in this encounterMemorial [facility]06-20-2024 History of Present illness Narrative* Davina Heredia APRN.CNP - 02/15/2024 2:00 PM EDTSummary: Cardiac follow-up Images from the original note were not included. [facility] [place] OUTPATIENT VISIT DATE February 15, 2024 OUTPATIENT VISIT TYPE ESTABLISHED PATIENT PRIMARY CARE PHYSICIAN: Shannan Wilburn NP [id number] [place] [address] HISTORY OF PRESENT ILLNESS: Mr. Berkowitz is a 33 year old male with a history of chest pain., Asthma, COPD, ADHD, bipolar disorder,,LV dysfunction, PTSD, TBI from falling out of a window as a child and ischemia on GXT. Patient returns for follow-up wanting to know what we can to do to help him. Patient's complaint today is shortness of breath and a cough. I spent 50 minutes total with this patient to help him understand the recent testing, the results and the meaning. Reviewed his echo and stress test. Patient would cough during the appointment which appeared to be more respiratory and not a cardiac cough. After many questions and observations , it appeared patient is having a flare of his asthma. Patient is followed by Dr. Gonsalez who prescribed inhalers. Patient is out of his inhalers and is not taking any medication that he is prescribed as he feels they do not help nor does he needthem. Patient became frustrated but was civil. Patient was upset that he could not get his CTA sooner. Patient repeatedly would say that he has low flow to his heart which caused him great concern. Reviewed the terminology of ischemia and the meaning. Explained to patient that the CTA will help delineate any ischemia. After long discussion and a plan ,patient was in agreement his cough is coming from his COPD/asthma flare. Patient initially stated he did not know that he had a diagnosis of COPD/asthma. Patient was sent upstairs to Dr. Gnosalez's office to to have refills sent for his inhalers andto use Mucinex to help with thinning the mucus. Reassured the patient that his CTA test will be performed here at [facility] which is his preference and that the most immediate issue is his cough. Patient's lungs were tight but not wheezing on auscultation. 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 PAST SURGICAL HISTORY Procedure Laterality Date BRAIN SURGERY HX EYE SURGERY HX Left SOCIAL HISTORY Social History Tobacco Use Smoking status: Never Passive exposure: Current Smokeless tobacco: Never Vaping Use Vaping Use: Never used Substance Use Topics Alcohol use: Yes Comment: occasional wine Drug use: Never FAMILY HISTORY Problem Relation Age of Onset other (congestive heart failure) Mother Heart Attack Brother ALLERGIES Allergen Reactions Aspirin Other: See Comments Buspar [Buspirone] Other: See Comments Tylenol [Acetaminop* Other: See Comments MEDICATIONS: Blood Pressure Monitor Please monitor blood pressure at home 3-5 times a week. Record blood pressure and heart rate budesonide-formoterol (SYMBICORT) 160-4.5 mcg/actuation inhaler Inhale 2 Puffs as instructed twice daily. fluticasone (FLONASE) 50 mcg/actuation nasal spray Fluticasone Propionate* (CFNDAOS83 GM) 16 GM SPRAY.SUSP Active 1 SPRAY NS 2 TIMES DAILY November 05, 2021 12:08pm QUEtiapine (SEROQUEL) 25 mg tablet (Patient not taking: Reported on 02/15/2024) VRAYLAR 6 mg capsule (Patient not taking: Reported on 02/15/2024) hydrOXYzine pamoate (VISTARIL) 50 mg capsule TAKE 1 CAPSULE BY ORAL ROUTE 2 TIMES EVERY DAY (AM, BEDTIME) NEEDED FOR ANXIETY (Patient not taking: Reported on 02/15/2024) hydrOXYzine HCl (ATARAX) 50 mg tablet Take 50 mg by mouth two times a day. (Patient not taking: Reported on 02/15/2024) mirtazapine (REMERON) 30 mg tablet TAKE ONE TABLET BY MOUTH EVERY DAY BEFORE BEDTIME (Patient not taking: Reported on 02/15/2024) OXcarbazepine (TRILEPTAL) 300 mg tablet TAKE ONE TABLET BY MOUTH TWICE A DAY FOR IRRITABILITY AND MOOD (Patient not taking: Reported on 02/15/2024) prazosin (MINIPRESS) 1 mg cap take 1 to 2 capsules by mouth at bedtime for NIGHTMARES. USE CAUTION WHEN CHANGING POSITIONS (Patient not taking: Reported on 02/15/2024) pantoprazole DR (PROTONIX) 40 mg tablet Take 1 tablet by mouth once daily. (Patient not taking: Reported on 02/15/2024) Amphetamine-Dextroamphetamine (ADDERALL) 30 mg tablet Take 1 tablet by mouth twice daily. (Patient not taking: Reported on 02/15/2024) topiramate (TOPAMAX) 50 mg tablet take 1 tablet by mouth every morning for MOOD SWINGS (Patient nottaking: Reported on 02/15/2024) venlafaxine XR (EFFEXOR XR) 225 mg tr24 take 1 tablet by mouth daily IN THE MORNING with food REVIEW OF SYSTEMS: Review of Systems Constitutional: Positive for diaphoresis and fatigue. Respiratory: Positive for choking, shortness of breath and wheezing. Cardiovascular: Positive for chest pain. Gastrointestinal: Positive for diarrhea. Neurological: Positive for dizziness, weakness, light-headedness, numbness and headaches. Psychiatric/Behavioral: Positive for sleep disturbance. All other systems reviewed and are negative. PHYSICAL EXAMINATION: BP 112/80 Pulse 95 Ht 170.2 cm (5' 7") Wt 110.7 kg (244 lb) SpO2 98% BMI 38.22 kg/m Physical Exam Vitals and nursing note reviewed. Constitutional: Appearance: Normal appearance. HENT: Head: Normocephalic and atraumatic. Neck: Vascular: No carotid bruit. Cardiovascular: Rate and Rhythm: Normal rate and regular rhythm. Pulses: Normal pulses. Heart sounds: Normal heart sounds. Pulmonary: Comments: Cough Tightness Abdominal: Palpations: Abdomen is soft. Musculoskeletal: General: Normal range of motion. Cervical back: Normal range of motion and neck supple. Right lower leg: No edema. Left lower leg: No edema. Skin: General: Skin is warm. Capillary Refill: Capillary refill takes less than 2 seconds. Comments: sweaty Neurological: Mental Status: He is alert and oriented to person, place, and time. Psychiatric: Comments: anxious CARDIOVASCULAR MEDICINE TESTING: EKG 02/15/24 Normal sinus rhythm VENT 82 NM 114 QRS 86 QT\\QTC 342/399 P R T 39 35 11 Last ECHO Result Conclusion ECHO Collected: 11/15/2023 11:05 AM (Final result) Impression: CONCLUSIONS: - Exam indication: Chest Pain - The left ventricle is normal in size. Left ventricular systolic function is normal. EF = 57 5% (2D biplane) Normal left ventricular diastolic function. - The right ventricle is normal in size. Right ventricular systolic function is normal. - Exam was compared with the prior echocardiographic exam performed on 03/07/2023 * * * Final * * * STRESS ECHO 03/07/23 Impression 1. Decrease exercise tolerance for age functional class II to possibly 3 etiology unclear 2. Negative for dysrhythmias 3. Negative for hyper or hypotensive response 4. Positive for exercise-induced schema EKG changes as described above Echocardiographic data At rest the overall ejection fraction is 45 to 50% The ejection fraction improved to 55 to 60% at peak exercise with mild improvement in intractability. But no wall motion abnormality Impression normal wall motion at rest and with exercise note 2. Negative for echocardiographic evidence of ischemia 3. Abnormal electrical cardiographic response to exercise as noted above Last EKG Result Conclusion ECG COMPLETE Collected: 04/25/2023 11:34 AM (Final result) Impression: Normal sinus rhythm Normal ECG When compared with ECG of 07-MAR-2023 10:04, No significant change was found Confirmed by [facility] ([id number]) on 04/26/2023 10:57:[address] Result Conclusion CT CHEST W IVCON Exam End: 04/25/2023 11:07 AM (Final result) Impression: IMPRESSION: No acute finding. Crisis Clinician: SU Transcribe Date/Time: Apr 25 2023 11:13A Dictated by : JOSE KATZ MD This examination was interpreted and the report reviewed and electronically signed by: JOSE KATZ MD on Apr 25 2023 11:25AM EST IMPRESSION AND RECOMMENDATIONS: Mr. Berkowitz is a 33 year old male with history of 1. LV dysfunction Patient has history of LV dysfunction which has improved to 55 to 60%. Explanation given to patientthat his heart muscle is strong. Patient is to follow a no added sodium diet. - ECG B/O W INTERP (MED OFFICE) 2. Asymptomatic myocardial ischemia A recent stress test patient had ST segment depression suggesting ischemia. Patient has a planned CTA for March 04, 2024. Patient understands that the CTA will help look at the coronary arteries and the perfusion to the heart muscle. Patient has a lot of anxiety due to waiting but left the office calm with a better understanding of the plan 3. Persistent asthma without complication, unspecified asthma severity Patient has history of asthma. Patient had a recent upper respiratory infection and ear infection and was treated. Patient's explanation of how he felt in and his cough suggested an asthma flare. Recommended patient go to his metal [facility]anger office and asked for refills sent to his pharmacy for his inhalers which he has not been taking. I spent a total of 50 minutes on the date of the service which included preparing to see the patient, itps-bn-[id number] patient care, completing clinical documentation, obtaining and/or reviewing separately obtained history, performing a medically appropriate examination, counseling and educating the pat ient/family/caregiver, independently interpreting results (not separately reported), and communicating results to the patient/family/caregiver. Davina Heredia APRN.VIVIEN documented in this encounterMemorial [facility]06-18-2024 Telephone encounter Note * Telephone Encounter - Carlie Hooker - 02/13/2024 2:27 PM EDT Pt called concerned with new symptoms states he is coughing can't sit upright and other new symptoms he states is due to his blood flow problem pt was scheduled w Davina [facility]06-[facility]2024 Miscellaneous Notes* Telephone Encounter - Carlie Hooker - 02/13/2024 2:27 PM EDT Pt called concerned with new symptoms states he is coughing can't sit upright and other new symptoms he states is due to his blood flow problem pt was scheduled w Davina documented in this encounterMemorial [facility]06-13-2024 Telephone encounter Note * Telephone Encounter - Trista Kerr - 02/08/2024 9:10 AM EDT I called central scheduling to see if they could possibly move up the appt for the CTA for the patient since he called in asking if his appt could be moved up due to his symptoms. Scheduling stated that they have 02/27/24 at the [facility], 02/27/24 at [place] and 02/23/24 at [facility]. I calledthe patient back and explained this to him. He started screaming at me telling me that he will not go anywhere else but [place]. I asked him not to scream at me as I was trying to help him and if he continued to scream and swear at me I would disconnect the call. He told me that if he cannot get in any sooner than 03/04/24 for his CTA he was probably just going to and that he wants us to "stop fucking calling him" and then he hung up on me. Trista Kerr [facility]06-13-2024 Miscellaneous Notes* Telephone Encounter - Trista Kerr - 02/08/2024 9:10 AM EDT I called central scheduling to see if they could possibly move up the appt for the CTA for the patient since he called in asking if his appt could be moved up due to his symptoms. Scheduling stated that they have 02/27/24 at the [facility], 02/27/24 at [place] and 02/23/24 at [facility]. I calledthe patient back and explained this to him. He started screaming at me telling me that he will not go anywhere else but [place]. I asked him not to scream at me as I was trying to help him and if he continued to scream and swear at me I would disconnect the call. He told me that if he cannot get in any sooner than 03/04/24 for his CTA he was probably just going to and that he wants us to "stop fucking calling him" and then he hung up on me. Trista Kerr * Telephone Encounter - Claritza Headley RN - 02/07/2024 4:15 PM EDT Spoke with Reid. Will need to reschedule CTA appointment, then call or fax them with the [place] # [id number]. Cardiology fax # [phone]. Will try an reschedule CTA in the morning. Will update patient tomorrow. Claritza Headley RN * Telephone Encounter - Carlie Hooker - 02/07/2024 3:31 PM EDT Pt called back very upset asking why we can't just get him in today or tomorrow for his test he is having a blood flow issue he is coughing having head aches and other new symptoms * Telephone Encounter - Ekta Del Real - 02/07/2024 3:20 PM EDT Keyla from [facility] left a phone note stating that the patient's prior authorization for CTA was approved. The Authorization number is [id number] but the approval dates is from 03/04/24 through 06/02/2024. We can call the [facility] and get the dates changed to move up the appointment. Please call [facility] at [phone]. * Telephone Encounter - Claritza Headley RN - 02/07/2024 10:44 AM EDT Spoke with patient. He stated that he spoke with his insurance company last night due to his increasing symptoms. He did say that the nurse at [facility] did tell him due to his increasing symptoms that he need to go to Urgent care or ER. Patient stated he did not go because he felt they were not goingto do anything and just send him back to our office. He stated that they approved for the CTA, alsostated that he talked with scheduling here at the hospital and that can get him in today 02/06 or tomorrow 02/[address] Barrett will put in a STAT order. Patient states that he had the flu 2 weeks ago, then was treated for an infection with antibiotics and mucinex which he has completed. He stated that he has tested negative for the flu and COVID. He states that he is coughing a lot, especially when he lays down, to the point he gags and feels like he is going to "puke". He is c/o SOB when laying down, headache, lightheadedness, dizziness. Patient stated that [place], he had an episode of chest pain, which did go away. Blood pressure 102/65 which he feels is to low and due to his blood flow problem. Patient also stated that his insurance company [employer] will be calling him at 11:30 this date 02/06. Patient to call back once he talks with insurance. Claritza Headley RN documented in this encounterMemorial Health [facility]06-12-2024 Telephone encounter Note * Telephone Encounter - Claritza Headley RN - 02/07/2024 4:15 PM EDT Spoke with [facility]. Will need to reschedule CTA appointment, then call or fax them with the [place] # [id number]. Cardiology fax # [phone]. Will try an reschedule CTA in the morning. Will update patient tomorrow. Claritza Headley RN [facility]06-12-2024 Telephone encounter Note* Telephone Encounter - Carlie Hooker - 02/07/2024 3:31 PM EDT Pt called back very upset asking why we can't just get him in today or tomorrow for his test he is having a blood flow issue he is coughing having head aches and other new symptoms [facility]06-12-2024 Telephone encounter Note* Telephone Encounter - Ekta Del Real - 02/07/2024 3:20 PM EDT Keyla from [employer] left a phone note stating that the patient's prior authorization for CTA was approved. The Authorization number is [id number] but the approval dates is from 03/04/24 through 06/02/2024. We can call the [facility] department and get the dates changed to move up the appointment. Please call Reid at [phone]. [facility]06-12-[facility] Telephone encounter Note* Telephone Encounter - Claritza Headley RN - 02/07/2024 10:44 AM EDT Spoke with patient. He stated that he spoke with his insurance company last night due to his increasing symptoms. He did say that the nurse at [facility] did tell him due to his increasing symptoms that he need to go to Urgent care or ER. Patient stated he did not go because he felt they were not goingto do anything and just send him back to our office. He stated that they approved for the CTA, alsostated that he talked with scheduling here at the hospital and that can get him in today 02/06 or tomorrow 02/[address] Barrett will put in a STAT order. Patient states that he had the flu 2 weeks ago, then was treated for an infection with antibiotics and mucinex which he has completed. He stated that he has tested negative for the flu and COVID. He states that he is coughing a lot, especially when he lays down, to the point he gags and feels like he is going to "puke". He is c/o SOB when laying down, headache, lightheadedness, dizziness. Patient stated that last week in family court, he had an episode of chest pain, which did go away. Blood pressure 102/65 which he feels is to low and due to his blood flow problem. Patient also stated that his insurance company [employer] will be calling him at 11:30 this date 02/06. Patient to call back once he talks with insurance. Claritza Headley RN [facility]06-11-2024 Note* Addendum Note - Claritza Headley RN - 02/06/2024 2:10 PM EDTAddended by: CLARITZA HEADLEY on: 02/06/2024 02:10 PM Modules accepted: Orders [facility]06-11-2024 Miscellaneous Notes* Addendum Note - Claritza Headley RN - 02/06/2024 2:10 PM EDTAddended by: CLARITZA HEADLEY on: 02/06/2024 02:10 PM Modules accepted: Orders * Addendum Note - Quintin Hennessy RN - 02/06/2024 1:00 PM EDTAddended by: QUINTIN HENNESSY on: 02/06/2024 01:00 PM Modules accepted: Orders documented in this encounterMemorial Health [facility]06-11-2024 Note* Addendum Note - Quintin Hennessy RN - 02/06/2024 1:00 PM EDTAddended by: QUINTIN HENNESSY on: 02/06/2024 01:00 PM Modules accepted: Orders [facility]06-07-2024 Telephone encounter Note* Telephone Encounter - Maura Cancino RN - 02/02/2024 10:51 AM EDT Patient has been added to wait list for sooner cta. BP cuff was ordered and sent to henrique on dc. [facility]06-07-2024 Miscellaneous Notes* Telephone Encounter - Maura Cancino RN - 02/02/2024 10:51 AM EDT Patient has been added to wait list for sooner cta. BP cuff was ordered and sent to henrique on . * Telephone Encounter - Maura Cancino RN - 01/23/2024 3:23 PM EDT I spoke with pt. He was upset that he received a call from his insurance company [employer]. [employer] told him that we have not sent information for a prior auth yet. I let him know that it is too early tosend info as test is not scheduled until 03/04. He would like me to see if I can move test up. I did let him know that it can't be before 14 days due to auth process. He also had a concern about his low blood pressure. 102/70. 107/65, 101/55. He would like a blood pressure cuff sent to pharmacy. Advised I would send request to Dr Barrett for bp cuff if insurance would cover it. I will see about getting test moved up for pt. * Telephone Encounter - Cecy Patrick - 01/23/2024 2:54 PM EDT Patient called stating that Dr. Barrett said he had a blood flow problem. He was screaming at me and accused me of seeing his number and not answering the phone. (Which of course is not true). He said "Dr. Barrett is going to get me in and do what I need him to do or I am taking Dr. Barrett to court". He said his BP is 102/65 and it is in the danger zone. He also said if it gets any lower, he is going to have Cardiac Arrest. He said Maura thinks this is a joke. Maura heard Mr. Berkowitz on the phone and askedme to transfer him to her, so I did. documented in this encounterMemorial [facility] Telephone encounter Note * Telephone Encounter - Maura Cancino RN - 01/23/2024 3:23 PM EDT I spoke with pt. He was upset that he received a call from his insurance company [employer]. [employer] told him that we have not sent information for a prior auth yet. I let him know that it is too early tosend info as test is not scheduled until 03/04. He would like me to see if I can move test up. I did let him know that it can't be before 14 days due to auth process. He also had a concern about his low blood pressure. 102/70. 107/65, 101/55. He would like a blood pressure cuff sent to pharmacy. Advised I would send request to Dr Barrett for bp cuff if insurance would cover it. I will see about getting test moved up for pt. [facility]05-28-2024 Telephone encounter Note* Telephone Encounter - Cecy Patrick - 01/23/2024 2:54 PM EDT Patient called stating that Dr. Brarett said he had a blood flow problem. He was screaming at me and accused me of seeing his number and not answering the phone. (Which of course is not true). He said "Dr. Barrett is going to get me in and do what I need him to do or I am taking Dr. Barrett to court". He said his BP is 102/65 and it is in the danger zone. He also said if it gets any lower, he is going to have Cardiac Arrest. He said Maura thinks this is a joke. Maura heard Mr. Berkowitz on the phone and askedme to transfer him to her, so I did. [facility]05-21-2024 Telephone encounter Note* Telephone Encounter - Maura Cancino RN - 01/16/2024 2:48 PM EDT I received a call from a admitting representative at [facility] who was on a 3 way call with pt. The admitting representative stated that he was trying to help the patient sort out what was needed for his upcoming ct scan that is scheduled for February. I explained that previous testing was denied in October and thatthe physician had placed a new order and we would need to obtain a new authorization for upcoming. Pt was yelling on the call stating that we had not submitted anything. I responded that the authorization may not have been submitted yet because test is scheduled more than 30 days away. The [employer] rep asked what the process was and I did explain that it is done by priority and date scheduled. During the whole conversation pt was yelling in background about how no one cared about is heart and howhe is a sick person and he could . At this point I did advise pt that if he feels like he is going to he should report to ER. He said the ER does nothing for him and tells him to follow up with his heart doctor. The patient was talking over everyone and would not stop to let anyone else speak. At this point the [place] [employer] stated that he was going to end the three way call and that he would deal with the patients grievance with insurance company. [facility]05-21-2024 Miscellaneous Notes* Telephone Encounter - Maura Cancino RN - 01/16/2024 2:48 PM EDT I received a call from a admitting representative at [facility] who was on a 3 way call with pt. The admitting representative stated that he was trying to help the patient sort out what was needed for his upcoming ct scan that is scheduled for February. I explained that previous testing was denied in October and thatthe physician had placed a new order and we would need to obtain a new authorization for upcoming. Pt was yelling on the call stating that we had not submitted anything. I responded that the authorization may not have been submitted yet because test is scheduled more than 30 days away. The [employer] rep asked what the process was and I did explain that it is done by priority and date scheduled. During the whole conversation pt was yelling in background about how no one cared about is heart and howhe is a sick person and he could . At this point I did advise pt that if he feels like he is going to he should report to ER. He said the ER does nothing for him and tells him to follow up with his heart doctor. The patient was talking over everyone and would not stop to let anyone else speak. At this point the [place] [employer] stated that he was going to end the three way call and that he would deal with the patients grievance with th insurance company. * Telephone Encounter - Claritza Headley RN - 01/16/2024 2:21 PM EDT Spoke with patient. Patient very belligerent with staff. Patient stated he wore the monitor for 8 days and he broke out with "fucking" blisters, he wanted to know if he needed to wear another monitor. He stated he did press the button due to chest pain. This message was addressed in another note that was sent to Dr. Barrett. Patient asking why the doctors can't override the insurance so he can have the CTA that is scheduled for 03/04/24. He stated his heart is only pumping at 40%, and we just think his health is a joke. Explained to patient that we are just waiting on approval from insurance. He yelled that it's just money and we shouldn't get paid first before this procedure. I explained that we do not get paid first,but we need the insurance company to approve it. He stated he has attorneys and he is going to filemedical malpractice on this office and Dr. Barrett. Patient stated that if he "fucking" dies it's on us, and his family will juliane us for medical malpractice. Tried to calm patient down and tell him we are not trying to disregard his concerns or medical issues. Patient continued ranting that he can not get anyone to take him seriously that he has a heart problem, and the insurance company needs to know why he needs this test. I explained to patient that there is documentation from Dr. Barrett as to whyhe feels this test is necessary. Patient hung up on me. Claritza Headley RN documented in this encounterCleveland [id number] Telephone encounter Note * Telephone Encounter - Claritza Headley RN - 01/16/2024 2:21 PM EDT Spoke with patient. Patient very belligerent with staff. Patient stated he wore the monitor for 8 days and he broke out with "fucking" blisters, he wanted to know if he needed to wear another monitor. He stated he did press the button due to chest pain. This message was addressed in another note that was sent to Dr. Barrett. Patient asking why the doctors can't override the insurance so he can have the CTA that is scheduled for 03/04/24. He stated his heart is only pumping at 40%, and we just think his health is a joke. Explained to patient that we are just waiting on approval from insurance. He yelled that it's just money and we shouldn't get paid first before this procedure. I explained that we do not get paid first,but we need the insurance company to approve it. He stated he has attorneys and he is going to filemedical malpractice on this office and Dr. Barrett. Patient stated that if he "fucking" dies it's on us, and his family will juliane us for medical malpractice. Tried to calm patient down and tell him we are not trying to disregard his concerns or medical issues. Patient continued ranting that he can not get anyone to take him seriously that he has a heart problem, and the insurance company needs to know why he needs this test. I explained to patient that there is documentation from Dr. Barrett as to whyhe feels this test is necessary. Patient hung up on me. Claritza Headley RN [facility]05-14-2024 History of Present illness Narrative* Uma Rdz, staff cytotechnologist - 01/09/2024 2:28 PM EDT Patient was order an event monitor from 01/02/24 - 01/16/24. From the company [employer], there is no final report due to its being lost. documented in this encounterMemorial Health [facility]05-07[facility]24 History of Present illness Narrative* Ledy Contreras MA - 01/02/2024 9:26 AM EDT Images from the original note were not included. [facility] Jeremy Berkowitz : 1990 Jeremy Berkowitz here for ZIO AT (Telemetry - No Hookup Charge) holter monitor placement on 01/02/2024 . Patient complains of palpitations. Holter serial number [id number] placed per protocol. Diary given to patient and instructed to return for removal in 14 days. Ledy Contreras MA documented in this encounterMemorial Health [facility]05-[facility]-2024 History of Present illness Narrative* Ledy Contreras MA - 01/02/2024 9:24 AM EDT Images from the original note were not included. [facility] Jeremy Berkowitz : 1990 Jeremy Berkowitz here for ZIO AT (Telemetry - No Hookup Charge) holter monitor placement on 01/02/2024 . Patient complains of palpitations. Holter serial number [id number] placed per protocol. Diary given to patient and instructed to return for removal in 14 days. Ledy Contreras MA documented in this encounterMemorial Health [facility]04-25-2024 Telephone encounter Note * Telephone Encounter - Kimberli Maradiaga - 12/21/2023 10:09 AM EDT Confirmed event monitor time and day with patient Kimberli Maradiaga [facility]04-25-2024 Miscellaneous Notes* Telephone Encounter - Kimberli Maradiaga - 12/21/2023 10:09 AM EDT Confirmed event monitor time and day with patient Kimberli Maradiaga documented in this encounterMemorial Health System [facility]04-02-2024 Miscellaneous Notes* Telephone Encounter - Maura Cancino, JULIUS - 11/28/2023 2:25 PM EDT I spoke with pt. Advised ct scan was moved up. Date and time provided. * Telephone Encounter - Nori Em - 11/28/2023 1:44 PM EDT Spoke to Linsey in Central scheduling who spoke to Kayleigh and was able to move patient up to 12/14 @ 8 am Thanks Nori Em * Telephone Encounter - Maura Cancino, JULIUS - 11/28/2023 12:47 PM EDT Betzy would you be able to move pt's ct scan up with radiology. He does still need a prior auth so I would put it at least 14 days out if possible. * Telephone Encounter - Ekta Del Real - 11/27/2023 2:50 PM EDT Patient called in regards to if Dr. Barrett could order a event monitor for him prior to his CT that is scheduled for January. He states that he has chest pain that his left side goes numb but he does not want to go to the ED. Please call him back at [phone]. documented in this encounterMemorial Health [facility]04-01-2024 Miscellaneous Notes* Telephone Encounter - Maura Cancino RN - 11/27/2023 2:59 PM EDT The prior auth department will send office notes for authorization. * Telephone Encounter - Carlie Hooker - 11/27/2023 2:50 PM EDT Pt is calling states he received a letter for denial of his CT, pt called back states he called [facility] they need notes from Dr Barrett stating pt might have a blood flow problem would like us to send these notes to insurance documented in this encounterMemorial Health [facility]03-21-2024 Miscellaneous Notes* Telephone Encounter - Maura Cancino RN - 11/16/2023 9:39 AM EDT I spoke with pt. Advised echo was normal. All questions answered. Called and scheduled ct scan for this hospital in January and had pt added to waitlist. * Telephone Encounter - Maura Cancino RN - 11/16/2023 9:29 AM EDT LMOM. Per Dr Barrett echo was completely normal. * Telephone Encounter - Maura Cancino RN - 11/15/2023 2:27 PM EDT Pt's echo is in EPIC. * Telephone Encounter - Cecy Patrick - 11/15/2023 12:35 PM EDT Patient called stating he had Echo done today and wants to know how long it takes to get the results. He wants a call as soon as possible with the results whether they are good or bad. He said it is his right as a patient to know the results and have them explained to him. He said the way the ladies face looked that was doing the Echo, he could tell that something was wrong. Please call him @ [phone]. documented in this encounterMemorial Health [facility]03-18-2024 Miscellaneous Notes* Telephone Encounter - Maura Cancino, RN - 11/13/2023 3:35 PM EDT I spoke with patient. I was able to schedule him much sooner at [facility] for ct scan on 11/26 at9am. Patient stated he is unable to go to [facility] or to [facility] due to previous behavioral issues. He began yelling on the phone and said if he dies before he can have a ct scan he will juliane us. I did let pt know he would need to stop yelling or I would have to terminate the call. He was provided the number to central scheduling to call and check for cancellations to have ct scan moved to [facility]. He said he already did that and they told him January was the soonest. Advised he can call to check for cancellations. * Telephone Encounter - Cecy Patrick - 11/13/2023 12:55 PM EDT Patient called back screaming that the person that was going to schedule him for the CTA was rude. He also said that he can't get scheduled til January and he is going to and he wants a call back because this is unacceptable. * Telephone Encounter - Franca Greer - 11/13/2023 10:00 AM EDT Patient called upset that he couldn't get his CTA until January, he was saying he will juliane me and thisbusiness. Well his mom will if he dies. He was so upset due to this. He wanted to talk to you. I told him he can call and see if there is cancellations every day to try and get a sooner CTA. I told him that was a different department than this one.Franca Greer documented in this encounterMemorial Health System [facility]03-15-2024 Instructions* Patient Instructions* Jose Barrett MD - 11/10/2023 11:41 AM EDT Will refer you for Coronary cardiac CTA, Dx chest pain. Will refer you for full Echocardiogram to assess your chest pain. Return to clinic in 12 months documented in this encounterMemorial Health System [facility]03-15-2024 History of Present illness Narrative* Jose Barrett MD - 11/10/2023 11:00 AM EDT Images from the original note were not included. [facility] SECTION OF REGIONAL CARDIOLOGY OUTPATIENT VISIT DATE 11/10/2023 OUTPATIENT VISIT TYPE NEW PRIMARY CARE PHYSICIAN: Shannan Wilburn NP [address] [place] [address] A written report of the findings and recommendations will be sent to the requesting provider via shared medical record or via [employer]. Patient is being seen at the request of the referring physician for Chest pain HISTORY OF PRESENT ILLNESS: Mr. Berkowitz is a 33 year old male who is referred for chest pain. Patient states that since last year, and out of the blue, he will having chest pain, over the left side of the chest, with associated left arm tingling, that would last for about 50 seconds or more, with associated SOB, with nausea. Patient does have chest pain when he is active as well "like when I am mowing the grass". Patient with SELBY as well "but I never tested myself". Patient with PND, orthopnea and LE edema. No palpitation or claudication. Stress echo, February 2023: - Exam indication: Evaluation of ischemic equivalent - Definity contrast used for endocardial border detection. - The patient has not had a prior CC echocardiographic exam for comparison. Patient exercised on Clyde protocol for only 6 minutes 30 seconds Patient achieved 80% of maximum predicted heart rate there was adequate workload achieved rate-pressure product 180 patient completed 7.7 METS There was noted 1.[address] segment depression in inferior lateral leads consistent with positive ECG response PAST MEDICAL HISTORY Diagnosis Date ADHD (attention deficit hyperactivity disorder) Asthma 02/14/2023 Bipolar 1 disorder ([facility]) Chronic obstructive pulmonary disease (COPD) ([facility]) GERD (gastroesophageal reflux disease) 02/14/2023 History of stress test 03/07/2023 Stress echo: EF 45-50%, exercise-induced ischemia by EKG, negative for ischemia by echocardiogram LV dysfunction Obesity PTSD (post-traumatic stress disorder) Pulmonary nodule TBI (traumatic brain injury) ([facility]) TBI from falling out of a window as a child. PAST SURGICAL HISTORY Procedure Laterality Date BRAIN SURGERY HX EYE SURGERY HX Left Social History Tobacco Use Smoking status: Never Passive exposure: Current Smokeless tobacco: Never Vaping Use Vaping Use: Never used Substance Use Topics Alcohol use: Never Drug use: Never FAMILY HISTORY Problem Relation Age of Onset other (congestive heart failure) Mother Heart Attack Brother ALLERGIES Allergen Reactions Aspirin Other: See Comments Buspar [Buspirone] Other: See Comments Tylenol [Acetaminop* Other: See Comments CURRENT MEDICATIONS: mirtazapine (REMERON) 30 mg tablet TAKE ONE TABLET BY MOUTH EVERY DAY BEFORE BEDTIME OXcarbazepine (TRILEPTAL) 300 mg tablet TAKE ONE TABLET BY MOUTH TWICE A DAY FOR IRRITABILITY AND MOOD prazosin (MINIPRESS) 1 mg cap take 1 to 2 capsules by mouth at bedtime for NIGHTMARES. USE CAUTION WHEN CHANGING POSITIONS trimethoprim-polymyxin (POLYTRIM) 10,000 unit- 1 mg/mL ophthalmic solution Polymyxin B Sulfate/Tmp*(POLYTRIM EYE DR10 ML) 10 ML DROPS Active 1 GTT OD EVERY 4 HOURS May 04, 2021 4:03pm budesonide-formoterol (SYMBICORT) 160-4.5 mcg/actuation inhaler Inhale 2 Puffs as instructed twice daily. pantoprazole DR (PROTONIX) 40 mg tablet Take 1 tablet by mouth once daily. albuterol (PROVENTIL) 2.5 mg /3 mL (0.083 %) nebulizer solution inhale contents of 1 vial ( 3 milliliters ) in nebulizer by mouth... (REFER TO PRESCRIPTION NOTES). VENTOLIN HFA 90 mcg/actuation inhaler inhale 1 puff by mouth three times a day if needed VRAYLAR 4.5 mg capsule Take 4.5 mg by mouth once daily. cloNIDine HCl (CATAPRES) 0.1 mg tablet Take 0.1 mg by mouth daily at bedtime. cyclobenzaprine (FLEXERIL) 10 mg tablet 10 mg. Amphetamine-Dextroamphetamine (ADDERALL) 30 mg tablet Take 1 tablet by mouth twice daily. fluticasone (FLONASE) 50 mcg/actuation nasal spray Fluticasone Propionate* (WEUJYXN11 GM) 16 GM SPRAY.SUSP Active 1 SPRAY NS 2 TIMES DAILY November 05, 2021 12:08pm hydrOXYzine pamoate (VISTARIL) 25 mg capsule take 1 capsule by mouth twice a day if needed DURING THE DAY topiramate (TOPAMAX) 50 mg tablet take 1 tablet by mouth every morning for MOOD SWINGS venlafaxine XR (EFFEXOR XR) 225 mg tr24 take 1 tablet by mouth daily IN THE MORNING with food REVIEW OF SYSTEMS: Chest pain Yes Shortness of breath Yes Bleeding No Dizziness No Syncope No Palpations No 10 systems reviewed and are negative with the exception of pertinent positives described in HPI PHYSICAL EXAMINATION: 118/75 Heart rate 80 but on ECG it is 64 RR 12 HEENT: NC/AT Heart: RRR with with II/ systolic murmur. Lungs: CTAB Abdomen: Benign, no rebound, guarding or rigidity. Extremities: No edema Neurological: Alert and oriented in no acute distress. Skin: Dry and warm CARDIOVASCULAR MEDICINE TESTING: I have personally reviewed echocardiographic images Last EKG Result Conclusion ECG COMPLETE Collected: 04/25/2023 11:34 AM (Final result) Impression: Normal sinus rhythm Normal ECG When compared with ECG of 07-MAR-2023 10:04, No significant change was found Confirmed by ERIK JADE MD ([id number]) on 04/26/2023 10:57:[address] Result Conclusion CT CHEST W IVCON Exam End: 04/25/2023 11:07 AM (Final result) Impression: IMPRESSION: No acute finding. Crisis Clinician: SU Transcribe Date/Time: Apr 25 2023 11:13A Dictated by : JOSE KATZ MD This examination was interpreted and the report reviewed and electronically signed by: JOSE KATZ MD on Apr 25 2023 11:25AM EST IMPRESSION: Chest pain, comes on with and without activities. Patient is very concerned about his symptoms "I do not know and the unknown scares me". SELBY. Abnormal ECG part of treadmill stress Echo Limited treadmill stress Echo in February 2023 by images as well as by distance on the treadmill: - Definity contrast used for endocardial border detection. Patient exercised on Clyde protocol for only 6 minutes 30 seconds Patient achieved 80% of maximum predicted heart rate there was adequate workload achieved rate-pressure product 180 patient completed 7.7 METS There was noted 1.[address] segment depression in inferior lateral leads consistent with positive ECG response Mildly reduced LVEF on baseline Echocardiogram as part of stress echo. Obesity, moderate. COPD GERD ADHD/Bipolar DO Pulmonary nodule, stable over all according to him. Risk factor: Second hand smoker and family history. PLAN AND RECOMMENDATIONS: Will refer you for Coronary cardiac CTA, Dx chest pain. Will refer you for full Echocardiogram to assess your chest pain. Return to clinic in 12 months documented in this encounterMemorial Health [facility]10-25-2023 Miscellaneous Notes* Telephone Encounter - Kayleigh Eldridge RN - 06/21/2023 11:48 AM EDT I spoke to the scheduling department. Dr. Valdez has an opening June 30, 2023. We canceled his appointment for the [facility] since the patient did not want to go that way. He is pleased that he is being seen sooner rather than later. He is totally fine with seeing Dr. Valdez. He thanked me very much for getting him in sooner. * Telephone Encounter - Kayleigh Eldridge RN - 06/21/2023 8:54 AM EDT Patient called and very upset and concerned about his appointment. He was scheduled at the [place] office. He does not want to go to the [place] office. He wants to be seen here at [facility]. He wants to be seen SUDHA. He does not want to wait to after the first the year. He is very concerned about his heart. He is worried that he might . He does suffer from occasional dyspnea. He isaware that if he has worsening symptoms he could go to the ER but he declined. He just wants the permanent mold supervisor to call him SUDHA with an appointment as soon as possible. documented in this encounterMemorial Health System [facility]10-24-2023 Miscellaneous Notes* Telephone Encounter - Kimberli Maradiaga - 06/20/2023 2:15 PM EDT Contacted patient to let him know we had to rescheduled his appointment documented in this encounterMemorial Health System [facility]07-19-2023 Miscellaneous Notes* Telephone Encounter - Kirstie Santamaria - 03/15/2023 2:50 PM EDT Called patient to make new patient appointment with Norma as he was referred here since Dr Rothman is out until June 26. He yelled at me and told me that he wasn't waiting till then to be seen. Andwhen I told him that Norma was scheduling June 28, he then yelled at me and told me that he wasn't waiting that long and would just and don't call him again, then hung up on me. documented in this encounterMem[facility]23 Miscellaneous Notes* Telephone Encounter - Alana Collazo - 03/14/2023 8:15 AM EDT Faxed referral, demographics and stress test to Dr. Guevara's office. * Telephone Encounter - Alana Collazo - 03/13/2023 2:15 PM EDT Patient called in and stated that Cardiology contacted him in regards to the urgent referral that Isent over this morning, and also left a voicemail about. Patient called in screaming over the phone stating that it's unacceptable that they have an appointment in May, and that his heart is only working at 40% and he could like his brother did at age 35 from septic shock. I advised patient that I understand his grief, and I understand that all specialties are busy with patients, but what I would advise is getting scheduled with cardiology and being added to the wait list to get in sooner. I also advised patient that I could speak to the physician in regards to referring to someone else outside of [facility], and patient states that he has to stay inside of [place] due to not being able to drive. Patient then continues to state that "there are all of these foreign physicians who don't know whatthey are doing" and "they don't know what they are talking about in regards to treating patients". I advised patient again that I understand, and we will see what we can do about getting him seen sooner- but he should still get scheduled and placed on a wait list. Alana Collazo, MARIA DE JESUS documented in this encounterMemorial [facility]07-17-2023 Miscellaneous Notes* Telephone Encounter - Ekta Del Real - 03/13/2023 2:29 PM EDT Patient called back in stating that his PCP is unaware of him having an issue with his heart and was demanding that we faxed records over to his PCP. I let him know that since we have never seen him before we do not have anything to fax to his PCP and he would need to call the office that referred him to cardiology. Patient stated thanks for nothing and disconnected the call. * Telephone Encounter - Selma Alexis - 03/13/2023 1:47 PM EDT I advised this patient no DrYaneli Has anything sooner. Selma Soto please reaprevious. Thanks, Selma Alexis * Telephone Encounter - Carlie Hooker - 03/13/2023 1:44 PM EDT Pt is calling states he wants to talk to his doctor he needs forwarded to a different doctor or to get him in sooner, he is not waiting for Oct. He has been having chest pain he walks and his chest hurts and he has family history of heart problems his brother passed at 35 due to heart problems. PT states it is his constitutional right to see a doctor sooner. * Telephone Encounter - Selma Alexis - 03/13/2023 1:41 PM EDT I called and offered this patient an appt in May and he is screaming at the top of his lungs atme and was calling me a liar and states that his heart is only working at 40 percent and he could by May. He repeated and repeated himself multiple times. He was very rude and irate. I told him I understand his grief and if he doesn't feel right to go to Er and I will add to a wait list. Just an FYI if he calls back. He did call me back and I had the boarding kennel or cattery operator advise I was sending a note. Selma Alexis When I advised to go to ER he stated I was stupid and they would just have him call us. Selma Alexis * Telephone Encounter - Quintin Hennessy RN - 03/13/2023 1:19 PM EDT Please offer next new pt. Appointment for . I know all providers are booking out just as far as Dr. Rothman if not further. However, if anyone has a sooner new pt. Availability, you can offer that as well. 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 Rojas. Patient is referred for chest pain * Telephone Encounter - Marsha Arredondo - 03/13/2023 8:54 AM EDTSummary: Referral Oma from [facility] left voicemail for an urgent referral from Dr. Rojas. Please call patient at [phone]. documented in this encounterMemorial [facility]07-11-2023 Nurse Note* Georgie Sheffield, RN - 03/07/2023 10:30 AM EDTSummary: IV #22 gauge IV inserted into RAC per protocol x1 attempts. IV discontinued after testing, site unremarkable. Dry sterile dressing applied. [facility]07-11-[facility] Nurse Note* Georgie Sheffield RN - 03/07/2023 10:30 AM EDT Summary: IV #22 gauge IV inserted into RAC per protocol x1 attempts. IV discontinued after testing, site unremarkable. Dry sterile dressing applied. documented in this encounterMemorial [facility]06-20-2023 History of Present illness Narrative* Blue Rojas MD - 02/14/2023 8:34 AM EDT Images from the original note were not included. [facility] Date: February 14, 2023 Patient Name: Jeremy Berkowitz Jeremy Berkowitz is a 32 year old yr old male, presents to the [facility] [place] for evaluation of Asthma, and abnormal CT. 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 Patient presents for evaluation of symptoms of asthma that dayte back to childhood. It was triggered by cigarette smoke, and environmental irritants. The patient was treated primarily with albuterol during his childhood. The patient was only treated with albuterol up until 2018, when he was startedon Symbicort. The patient did not feel as though this helped. The patient is currently using his albuterol inhaler 4 times daily in addition to his Symbicort. Patient did have recent weight gain with of a child. The patient reports that he has dyspnea symptoms when he uses his albuterol. Patient is very concerned about his pulmonary nodule. 3-[address] chest. Patient's brother from complications related to a lung mass. Patient also reports of difficluty breathing when he sleeps. Patient also snores, and has witnessedapneic events. He is not tired or fatigued Patient is a non-smoker, but does have secondary smoke exposures PRIMARY CARE PHYSICIAN: Shannan Wilburn NP REASON FOR CONSULT: Patient presents with: Asthma Lung Eval: States in 2018, his ct showed he has a mass. He is unsure about this. States at night, he feels more short of breath. REQUESTING PHYSICIAN: No ref. provider found My final recommendations will be communicated to the requesting health care provider by way of the shared medical record for internal providers or letter via the [employer] for external providers. Patient Entered Questionnaires: Modified Medical Research [place] Dyspnea Scale (MMRC) I only get breathless with strenous exercise 0 Daily cough: Yes Daily Sputum: No IMMUNIZATIONS: There is no immunization history on file for this patient. REVIEW OF SYSTEMS: GEN: Weight loss no, Night sweats no, Fever no. NEURO: Syncope no, Seizure no. EYES: [place], Cataracts no. Patient has h/o L orbital reconstruction surgery NOSE: Nasal congestionno, epistaxis no. GI: Constipation no, Heartburn no, malnutrition (<80% of predicted body weight) not present. ENDO: Polyuria no, heat/cold intolerance no. CARD: Chest pain: Uncertain : Urinary retention no. DERM: Skin rash or lesionsno. MSK: Joint swelling no. MITRA: Easy bruising no. DANIEL INDEX: NA PAST MEDICAL HISTORY Diagnosis Date ADHD (attention deficit hyperactivity disorder) Asthma Bipolar 1 disorder (HCC) Chronic obstructive pulmonary disease (COPD) (HCC) PTSD (post-traumatic stress disorder) TBI (traumatic brain injury) ([facility]) TBI from falling out of a window as a child. PAST SURGICAL HISTORY Procedure Laterality Date BRAIN SURGERY HX EYE SURGERY HX Left Social History Tobacco Use Smoking status: Never Passive exposure: Current Smokeless tobacco: Never Vaping Use Vaping Use: Never used Substance Use Topics Alcohol use: Never Drug use: Never History reviewed. No pertinent family history. PHYSICAL EXAMINATION: VITALS:BP 120/70 Pulse 78 Ht 5' 7" (1.70m) Wt 242 lb (109.8kg) SpO2 98% BMI 37.89 kg/(m^2). [email or web address] GEN: Breathingnonlabored, Cachexia not present . HEENT: Oropharynx clear and Nares patent CHEST: Breath sounds normal, Crackles not present, Wheezing not present. HEART: Rhythm regular,Heart sounds normal, Added sounds not present, Murmur not present . ABD: Soft and Bowel Sounds: not present EXT: Clubbing no, edema no . SKIN: Rashes no, lesions no. NEURO: Global strength normal, gait normal . Laboratory and Imaging: Last Spirometry No resulted procedures found. Arterial blood gas: No results found for: PH, PCO2, PO2, HCO3, BE, LACT CT scan of the chest: Pulmonary nodule CT Chest other findings: Last CT Chest - Impression Only CT CHEST W IVCON Collected: 12/07/2019 4:33 AM (Final result) Impression: 3 mm right upper lobe pulmonary nodule. ---- Electronic Signature on File ---- Signed By: Jenifer Vinson MD ... Last XR Chest - Impression Only XR CHEST 2V FRONTAL/LAT Collected: 11/13/2021 5:26 PM (Final result) Impression: 1. No radiographic evidence of significant cardiopulmonary disease. This report was electronically signed by Dora Kay MD 11/13/2021 5:50 PM... No results found for this or any previous visit (from the past 4464 hour(s)). Pulmonary hypertension on echocardiogram: unknown. Other data: None, ASSESSMENT and PLAN: ASSESSMENT/PLAN: 1. Moderate persistent asthma without complication - ICD9: 493.90, ICD10: J45.40 (primary diagnosis) - Moderate persistent asthma worse - Avoidance of triggers recommended - Increase symbicort dose to 160 - NITRIC OXIDE, EXHALED - SPIROMETRY - BASELINE AND POST DILATOR - MAXIMAL VOLUNTARY VENTILATION - LUNG VOLUMES - LUNG DIFFUSION CAPACITY (DLCO) 2. Solitary pulmonary nodule - ICD9: 793.11, ICD10: R91.1 > H/O 3-4 mm SPN > Patient with family history of "lung mass > Patient very concerned and requesting lesion be re-evaluated > Will order CT to evaluate for progression. If abnormality unchanged since 2019, benign etiology 3.) GERD Patient with post prandial mid epigastric chest discomfort that is typical for GERD > Will refer for UGI series > begin PPI 4. ) Atypical Chest pain > Cardiology referral > EKG, Stress test 5. ) JOSE > Increased risk for JOSE based on Stop-BANG > Will refer fo in-lab PSG given TBI history > AutoCPAP if positive Blue Rojas MD documented in this encounterMemorial [facility]06-04-2022 History of Present illness Narrative* Renato Elizalde MD - 01/29/2022 8:39 AM EDT DATE OF SERVICE: 01/29/2022 HISTORY OF PRESENT ILLNESS: A 31-year-old male presenting today with very pruritic rashes that appeared 1 week ago. He states that the rashes started after working at [employer]. He reports it was very busy. The yard at the [employer] was littered with all kinds of trash according to the patient. 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 He reports not seeing any poison phong or anything like that, but then shortly after he started developing very pruritic rashes. 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 He states that the rashes have already appeared prior to his landscape work. He has been applying some hydrocortisone cream, applying Calamine lotion and taking Benadryl without any improvement. He has no other complaints. Denies history of travel. Denies mosquito bites. He has no headache or dizziness. Denies neck pain. Denies chest pain or shortness of breath. ALLERGIES: ASPIRIN, TYLENOL, AND BUSPAR. PAST MEDICAL HISTORY: Reviewed. [facility] PATIENT NAME: JEREMY BERKOWITZ [address] MEDICAL REC #: [id number] [place] [address] [facility] PHYSICIAN HOME MEDICATIONS: None. SOCIAL, FAMILY, PAST SURGICAL HISTORY: Reviewed. PHYSICAL EXAMINATION: His blood pressure is 127/87, pulse 83, respirations 16, temperature 97.6, pulse oximetry 98%. The patient is alert in no acute distress. Head is atraumatic, normocephalic. Normal sclerae and conjunctivae. Oral cavity is moist. Neck is supple. Lungs are clear to auscultation. Regular rate and rhythm. Examination of the skin revealed erythematous papular rashes that are present on the chest, arms, and legs. No erythema migrans. No cellulitis. No blisters. No joint swelling. IMPRESSION: Nonspecific rashes. PLAN: Prednisone taper. Continue hydrocortisone cream. Stop Calamine. Take Benadryl as needed for the itching. Follow up here if not improving. Work note given for today. Renato Elizalde MD [id number] [facility] PATIENT NAME: JEREMY BERKOWITZ SR [address] MEDICAL REC #: [id number] [place] [address] [facility]YSICIAN SSI File#: [id number] END OF DOCUMENT / CHANGE LOG FOLLOWS Last Edited By [employer]. Signed By Renato Elizalde MD, Oliver L MD #RAMA on 02/03/2022 12:10 ET on 02/03/2022 12:10 ET Revision Number - 4 Verified/Reviewed by 02/03/22 1210 RAMA [facility] PATIENT NAME: JEREMY BERKOWITZ SR [address] [place] MEDICAL REC #: [id number] [place] [address] [facility] PHYSICIAN documented in this encounterAv[facility] noteNo assessment information availableUniversity [facility]erculosis Hospital Work Phone: [facility]* Diagnosis Moderate persistent asthma without complication- Primary Unspecified asthma Solitary pulmonary nodule Gastroesophageal reflux disease, unspecified whether esophagitis present JOSE (obstructive sleep apnea) Obstructive sleep apnea (adult) (pediatric) Chest pain, unspecified type documented in this encounter [facility] note* Diagnosis Solitary pulmonary nodule documented in this encounter [facility] note* Diagnosis Chest pain, unspecified type- Primary SELBY (dyspnea on exertion) Other dyspnea and respiratory abnormality documented in this encounter [facility] note* Diagnosis Chest pain, unspecified type documented in this encounter [facility] note* Diagnosis Other specified hypotension- Primary documented in this encounter [facility] note* Diagnosis OPENED IN ERROR- Primary To allow closing an encounter opened in error (used in SmartSet) documented in this encounter [facility] note* Diagnosis LV dysfunction- Primary Heart disease, unspecified Asymptomatic myocardial ischemia Other specified forms of chronic ischemic heart disease Persistent asthma without complication, unspecified asthma severity documented in this encounter [facility] note* Diagnosis Chest pain, unspecified type SELBY (dyspnea on exertion) Other dyspnea and respiratory abnormality documented in this encounter [facility] note* Diagnosis Chest pain, unspecified type- Primary documented [facility] this encounter [facility]* Diagnosis Chest pain, unspecified type documented in this encounter [facility]* Diagnosis Chest pain, unspecified type documented in this encounter [facility]* Diagnosis Chest pain, unspecified type- Primary documented in this encounter [facility] note* Diagnosis Chest pain, unspecified type- Primary documented in this encounter [facility]* Diagnosis SELBY (dyspnea on exertion)- Primary Other dyspnea and respiratory abnormality documented in this encounter [facility] Discharge instructions Additional Instructions Follow-up with your primary care provider. Nasal steroids as directed.[facility] Work Phone: Reason for referral (narrative)* Outpatient Procedure (Routine) - Pending Review Specialty Diagnoses / Procedures Referred By Contac t Referred To Contact [facility] Diagnoses Chest pain, unspecified type Procedures ECG COMPLETE ECG ROUTINE ECG W/LEAST 12 LDS W/I&R Blue Rojas MD [address] [place] [address] [facility] [place] [id number] Referral ID Status Reason Start Date Expiration Date Visits Requested Visits Authorized [id number] Pending Review Auto-Generat ed Referral 02/14/2023 02/14/2024 1 1 * Outpatient Procedure (Routine) - Pending Review Specialty Diagnoses / Procedures Referred By Contac t Referred To Contact [facility] Diagnoses Chest pain, unspecified type Procedures STRESS ECHO TREADMILL ECHO TTHRC R-T 2D W/WO M-MODE COMPLETE REST&ST Blue Rojas MD [address] [place] [address] [place] [address] Referral ID Status Reason Start Date Expiration Date Visits Requested Visits Authorized [id number] Pending Review Auto-Generat ed Referral 02/14/2023 02/14/2024 1 1 * Consult, Test, Treat (Routine) - Authorized Specialty Diagnoses / Procedures Referred By Contac t Referred To Contact Cardiology Diagnoses Chest pain, unspecified type Procedures CONSULT TO CARDIOLOGY OFFICE/OUTPATIENT [facility] 60-74 MINUTES Rashard Rothman [facility] [place] [address] Referral ID Status Reason Start Date Expiration Date Visits Requested Visits Authorized [id number] Authorized PCP Requested Referral 03/16/2023 02/14/2024 1 1 * Diagnostic Procedure Only (Routine) - Pending Review Specialty Diagnoses / Procedures Referred By Irasema t Referred To Contact XR IMAGING Diagnoses Gastroesophageal reflux disease, unspecified whether esophagitis present Procedures XR ESOPHAGRAM RADIOLOGIC EXAM ESOPHAGUS SINGLE CONTRAST STUDY Blue Rojas MD [address] [place] [address] Xr Imaging Referral ID Status Reason Start Date Expiration Date Visits Requested Visits Authorized [id number] Pending Review Auto-Generat ed Referral 02/14/2023 03/15/2024 1 1 * MRI/CT (Routine) - Pending Review Specialty Diagnoses / Procedures Referred By Irasema t Referred To Contact CT IMAGING Diagnoses Solitary pulmonary nodule Procedures CT CHEST WO IVCON DIAGNOSTIC COMPUTED TOMOGRAPHY THORAX W/O CNTRST Blue Rojas MD [address] [place] [id number] Ct Imaging Referral ID Status Reason Start Date Expiration Date Visits Requested Visits Authorized [id number] Pending Review Auto-Generat ed Referral 02/14/2023 03/15/2024 1 1 * Medication Prior Authorization - Closed Specialty Diagnoses / Procedures Referred By Irasema t Referred To Contact Diagnoses Moderate persistent asthma without complication Blue Rojas MD [address] [place], [place] [id number] Referral ID Status Reason Start Date Expiration Date Visits Re quested Visits Authorized [id number] Closed 1 1 * Outpatient Procedure (Routine) - Authorized Specialty Diagnoses / Procedures Referred By Irasema t Referred To Contact [facility] Diagnoses Moderate persistent asthma without complication Procedures LUNG DIFFUSION CAPACITY (DLCO) DIFFUSING CAPACITY Blue Rojas MD [address] [place] [id number] [address] [address] Referral ID Status Reason Start Date Expiration Date Visits Requested Visits Authorized [id number] Authorized Auto-Generat ed Referral 02/14/2023 03/15/2024 1 1 * Outpatient Procedure (Routine) - Pending Review Specialty Diagnoses / Procedures Referred By Contac t Referred To [facility] Diagnoses Moderate persistent asthma without complication Procedures LUNG VOLUMES Blue Rojas MD [address] [place] [address] [place] [id number] Referral ID Status Reason Start Date Expiration Date Visits Requested Visits Authorized [id number] Pending Review Auto-Generat ed Referral 02/14/2023 03/15/2024 1 1 * Outpatient Procedure (Routine) - Authorized Specialty Diagnoses / Procedures Referred By Contac t Referred To [facility] Diagnoses Moderate persistent asthma without complication Procedures MAXIMAL VOLUNTARY VENTILATION MAX BREATHING CAPACITY MAXIMAL VOLUNTARY VENTJ Blue Rojas MD [address] [place] [address] [address] Referral ID Status Reason Start Date Expiration Date Visits Requested Visits Authorized [id number] Authorized Auto-Generat ed Referral 02/14/2023 03/15/2024 1 1 * Outpatient Procedure (Routine) - Authorized Specialty Diagnoses / Procedures Referred By Contac t Referred To [facility] Diagnoses Moderate persistent asthma without complication Procedures SPIROMETRY - BASELINE AND POST DILATOR BRNCDILAT RSPSE SPMTRY PRE&POST-BRNCDILAT ADMN Blue Rojas MD [address] [place] [address] [address] Referral ID Status Reason Start Date Expiration Date Visits Requested Visits Authorized [id number] Authorized Auto-Generat ed Referral 02/14/2023 03/15/2024 1 1 * Outpatient Procedure (Routine) - Authorized Specialty Diagnoses / Procedures Referred By Contac t Referred To Contact [facility] Diagnoses Moderate persistent asthma without complication Procedures NITRIC OXIDE, EXHALED NITRIC OXIDE GAS DETERMINATION Blue Rojas MD [address] [place] [address] [facility] [place] [address] [place], [place] [id number] Referral ID Status Reason Start Date Expiration Date Visits Requested Visits Authorized [id number] Authorized Auto-Generat ed Referral 02/14/2023 03/15/2024 1 1 [facility] for referral (narrative)* Diagnostic Procedure Only (Routine) - Closed Specialty Diagnoses / Procedures Referred By Contac t Referred To Contact CT IMAGING Diagnoses Solitary pulmonary nodule Procedures CT CHEST WO IVCON DIAGNOSTIC COMPUTED TOMOGRAPHY THORAX W/O CNTRST Blue Rojas MD [address] [place] [address] Ct Imaging Referral ID Status Reason Start Date Expiration Date Visits Re quested Visits Authorized [id number] Closed 02/16/2023 05/17/2023 1 1 [facility] for referral (narrative)* Outpatient Procedure (Routine) - Pending Review Specialty Diagnoses / Procedures Referred By Contac t Referred To Contact [facility] Diagnoses Chest pain, unspecified type SEBLY (dyspnea on exertion) Procedures ECHO ECHO TTHRC R-T 2D W/WOM-MODE COMPL SPEC&COLR D Jose Barrett MD [address] [place] [address] [facility] [place] [address] [place], [place] [id number] Referral ID Status Reason Start Date Expiration Date Visits Requested Visits Authorized [id number] Pending Review Auto-Generat ed Referral 11/10/2023 11/09/2024 1 1 * MRI/CT (Routine) - Pending Review Specialty Diagnoses / Procedures Referred By Contac t Referred To Contact CT IMAGING Diagnoses Chest pain, unspecified type SELBY (dyspnea on exertion) Procedures CTA CORONARY W IVCON CTA HRT CORNRY ART/BYPASS GRFTS CONTRST 3D POST Jose Barrett MD [address] [place] [address] Ct Imaging [id number] Referral ID Status Reason Start Date Expiration Date Visits Requested Visits Authorized [id number] Pending Review Auto-Generat ed Referral 11/10/2023 12/09/2024 1 1 [facility] for referral (narrative)* Diagnostic Procedure Only (Routine) - Denied Specialty Diagnoses / Procedures Referred By Contac t Referred To Contact CT IMAGING Diagnoses Chest pain, unspecified type SELBY (dyspnea on exertion) Procedures CTA CORONARY W IVCON CTA HRT CORNRY ART/BYPASS GRFTS CONTRST 3D POST Jose Barrett MD [address] [place] [address] Ct Imaging [id number] Referral ID Status Reason Start Date Expiration Date V isits Requested Visits Authorized [id number] Denied Clearance Not Met - Admin/Chairm an/Director Advise to Postpone/Res chedule or Not Proceed 11/10/2023 08/27/2024 1 0 [facility] for referral (narrative)* Outpatient Procedure (Routine) - Closed Specialty Diagnoses / Procedures Referred By Contac t Referred To [facility] Diagnoses Chest pain, unspecified type Procedures STRESS ECHO TREADMILL ECHO TTHRC R-T 2D W/WO M-MODE COMPLETE REST&ST Blue Rojas MD [address] [place] [address] [facility] [place] [address] [place] [address] Referral ID Status Reason Start Date Expiration Date V isits Requested Visits Authorized [id number] Closed Auto-Generate d Referral 03/07/2023 06/05/2023 1 1 [facility] for referral (narrative)No reason for referral information availableWAdena [facility] Work Phone: Reason for visit Narrative* Diagnostic Procedure Only (Routine) - Closed Specialty Diagnoses / Procedures Referred By Contac t Referred To Contact CT IMAGING Diagnoses Solitary pulmonary nodule Procedures CT CHEST WO IVCON DIAGNOSTIC COMPUTED TOMOGRAPHY THORAX W/O CNTRST Blue Rojas MD [address] [place] [address] Ct Imaging Referral ID Status Reason Start Date Expiration Date Visits Re quested Visits Authorized [id number] Closed 02/16/2023 05/17/2023 1 1 [facility] for visit Narrative* Diagnostic Procedure Only (Routine) - Denied Specialty Diagnoses / Procedures Referred By Contac t Referred To Contact CT IMAGING Diagnoses Chest pain, unspecified type SELBY (dyspnea on exertion) Procedures CTA CORONARY W IVCON CTA HRT CORNRY ART/BYPASS GRFTS CONTRST 3D POST Jose Barrett MD [address] [place] [address] [place] [id number] Referral ID Status Reason Start Date Expiration Date V isits Requested Visits Authorized [id number] Denied Clearance Not Met - Admin/Chairm an/Director Advise to Postpone/Res chedule or Not Proceed 11/10/2023 08/27/2024 1 0 [facility] for visit Narrative* Diagnostic Procedure Only (Routine) - Closed Specialty Diagnoses / Procedures Referred By Contac t Referred To Contact Cardiology / CARDIOLOGY Diagnoses Palpitations [R00.2] Palpitations [R94.31] Abnormal EKG Procedures XTRNL ECG & 48 HR RECORDING EVENT MONITOR Jose Barrett MD [address] [place] [address] [facility] [facility] [address] [place] [id number] Referral ID Status Reason Start Date Expiration Date Visits Re quested Visits Authorized [id number] Closed 08/28/2023 08/27/2024 1 1 [facility] for visit Narrative* Outpatient Procedure (Routine) - Closed Specialty Diagnoses / Procedures Referred By Irasema vernon Referred To Contact [facility] Diagnoses Chest pain, unspecified type Procedures STRESS ECHO TREADMILL ECHO TTHRC R-T 2D W/WO M-MODE COMPLETE REST&ST Blue Rojas MD [address] [place] [address] [facility] [address] [place] [address] Referral ID Status Reason Start Date Expiration Date V isits Requested Visits Authorized [id number] Closed Auto-Generate d Referral 03/07/2023 06/05/2023 1 1 [facility] for visit Narrative* Diagnostic Procedure Only (Urgent) - Closed Specialty Diagnoses / Procedures Referred By Irasema vernon Referred To Contact Cardiology / CARDIOLOGY Diagnoses [R07.9] Chest pain, unspecified type Procedures HOLTER MONITOR 24-48 HOURS ANALYSIS/RESULT HOLTER MONITOR Jose Barrett MD [address] [place] [address] Card Lab [place] [address] [address] Referral ID Status Reason Start Date Expiration Date Visits Re quested Visits Authorized [id number] Closed 09/12/2024 08/27/2025 1 1 [facility] Summary Purpose Family History No Family History Records FoundNo Family History Records FoundNo Family History Records FoundNo Family History Records Found Advance Directives No Advanced Directives Records Found Advance Directive Response Recorded Date/ Time regarding your healthcare decisions? YES November 14, 2021 7:18pm [facility]? NO October 7:18pm Advance Directive Response Recorded Date/ Time Living Will No October 31, 2024 10:04pm Power of Tourist Adviser Yes October 31 10:04pm Name of Medical Power of Tourist Adviser MOTHER October 31, 2024 10:04pm Advance Directive Response Recorded Date/ Time Living Will No October 31, 2024 11:04pm Do you have a Healthcare Power of Tourist Adviser? Yes October 31, 2024 11:04pm Name of Medical Power of Tourist Adviser MOTHER October 31, 2024 11:04pm Living Will No December 04, 2024 2:21pm Do you have a Healthcare Power of Tourist Adviser? No December 04, 2024 2:21pm Chief Complaint and Reason for Visit Chief Complaint Admit Date WOUND October 31, 2024 10:0 1pm Chief Complaint Admit Date WOUND October 31, 2024 10:0 1pm cold s/s December 04, 2024 2:13 pm Additional Source Comments (unrecognized sect ion and content) No Status Records FoundNo Status Records FoundNo Status Records FoundNo Status Records Found INFORMATION SOURCE (unrecogn ized section and content) DATE CREATED AUTHOR 03/14/2021 [facility] ([place]) DATE CREATED AUTHOR AUTHOR'S ORGANIZ ATION 02/04/2022 [facility] DATE CREATED AUTHOR AUTHOR'S ORGANIZ ATION 12/12/2024 [facility] DATE CREATED AUTHOR AUTHOR'S ORGANIZ ATION 04/05/2025 [facility] Source Comments (unrecognize d section and content) In the event this informatio n is protected by the Federal Confidentiality of Alcohol and Drug Abuse Patient Records regulations: The Federal rules restrict any use of the information to criminally investigate or prosecute any alcohol or drug abuse patient.[facility] HospitalIn the event this information is protected by the Federal Confidentiality of Alcohol and Drug Abuse Patient Records regulations: The Federal rules restrict any use of the information to criminally investigate or prosecute any alcohol or drug abuse patient.[facility] HospitalIn the event this information is protected by the Federal Confidentiality of Alcohol and Drug Abuse Patient Records regulations: The Federal rules restrict any use of the information to criminally investigate or prosecute any alcohol or drug abuse patient.[facility] HospitalIn the event this information is protected by the Federal Confidentiality of Alcohol and Drug Abuse Patient Records regulations: The Federal rules restrict any use of the information to criminally investigate or prosecute any alcohol or drug abuse patient.[facility] HospitalIn the event this information is protected by the Federal Confidentiality of Alcohol and Drug Abuse Patient Records regulations: The Federal rules restrict any use of the information to criminally investigate or prosecute any alcohol or drug abuse patient.[facility] HospitalIn the event this information is protected by the Federal Confidentiality of Alcohol and Drug Abuse Patient Records regulations: The Federal rules restrict any use of the information to criminally investigate or prosecute any alcohol or drug abuse patient.[facility] HospitalIn the event this information is protected by the Federal Confidentiality of Alcohol and Drug Abuse Patient Records regulations: The Federal rules restrict any use of the information to criminally investigate or prosecute any alcohol or drug abuse patient.[facility] HospitalIn the event this information is protected by the Federal Confidentiality of Alcohol and Drug Abuse Patient Records regulations: The Federal rules restrict any use of the information to criminally investigate or prosecute any alcohol or drug abuse patient.[facility] HospitalIn the event this information is protected by the Federal Confidentiality of Alcohol and Drug Abuse Patient Records regulations: The Federal rules restrict any use of the information to criminally investigate or prosecute any alcohol or drug abuse patient.[facility] HospitalIn the event this information is protected by the Federal Confidentiality of Alcohol and Drug Abuse Patient Records regulations: The Federal rules restrict any use of the information to criminally investigate or prosecute any alcohol or drug abuse patient.[facility] HospitalIn the event this information is protected by the Federal Confidentiality of Alcohol and Drug Abuse Patient Records regulations: The Federal rules restrict any use of the information to criminally investigate or prosecute any alcohol or drug abuse patient.[facility] HospitalIn the event this information is protected by the Federal Confidentiality of Alcohol and Drug Abuse Patient Records regulations: The Federal rules restrict any use of the information to criminally investigate or prosecute any alcohol or drug abuse patient.[facility] HospitalIn the event this information is protected by the Federal Confidentiality of Alcohol and Drug Abuse Patient Records regulations: The Federal rules restrict any use of the information to criminally investigate or prosecute any alcohol or drug abuse patient.[facility] HospitalIn the event this information is protected by the Federal Confidentiality of Alcohol and Drug Abuse Patient Records regulations: The Federal rules restrict any use of the information to criminally investigate or prosecute any alcohol or drug abuse patient.[facility] HospitalIn the event this information is protected by the Federal Confidentiality of Alcohol and Drug Abuse Patient Records regulations: The Federal rules restrict any use of the information to criminally investigate or prosecute any alcohol or drug abuse patient.[facility] HospitalIn the event this information is protected by the Federal Confidentiality of Alcohol and Drug Abuse Patient Records regulations: The Federal rules restrict any use of the information to criminally investigate or prosecute any alcohol or drug abuse patient.[facility] HospitalIn the event this information is protected by the Federal Confidentiality of Alcohol and Drug Abuse Patient Records regulations: The Federal rules restrict any use of the information to criminally investigate or prosecute any alcohol or drug abuse patient.[facility] HospitalIn the event this information is protected by the Federal Confidentiality of Alcohol and Drug Abuse Patient Records regulations: The Federal rules restrict any use of the information to criminally investigate or prosecute any alcohol or drug abuse patient.[facility] HospitalIn the event this information is protected by the Federal Confidentiality of Alcohol and Drug Abuse Patient Records regulations: The Federal rules restrict any use of the information to criminally investigate or prosecute any alcohol or drug abuse patient.[facility] HospitalIn the event this information is protected by the Federal Confidentiality of Alcohol and Drug Abuse Patient Records regulations: The Federal rules restrict any use of the information to criminally investigate or prosecute any alcohol or drug abuse patient.[facility] HospitalIn the event this information is protected by the Federal Confidentiality of Alcohol and Drug Abuse Patient Records regulations: The Federal rules restrict any use of the information to criminally investigate or prosecute any alcohol or drug abuse patient.[facility] HospitalIn the event this information is protected by the Federal Confidentiality of Alcohol and Drug Abuse Patient Records regulations: The Federal rules restrict any use of the information to criminally investigate or prosecute any alcohol or drug abuse patient.[facility] HospitalIn the event this information is protected by the Federal Confidentiality of Alcohol and Drug Abuse Patient Records regulations: The Federal rules restrict any use of the information to criminally investigate or prosecute any alcohol or drug abuse patient.[facility] HospitalIn the event this information is protected by the Federal Confidentiality of Alcohol and Drug Abuse Patient Records regulations: The Federal rules restrict any use of the information to criminally investigate or prosecute any alcohol or drug abuse patient.[facility] HospitalIn the event this information is protected by the Federal Confidentiality of Alcohol and Drug Abuse Patient Records regulations: The Federal rules restrict any use of the information to criminally investigate or prosecute any alcohol or drug abuse patient.[facility] HospitalIn the event this information is protected by the Federal Confidentiality of Alcohol and Drug Abuse Patient Records regulations: The Federal rules restrict any use of the information to criminally investigate or prosecute any alcohol or drug abuse patient.[facility] HospitalIn the event this information is protected by the Federal Confidentiality of Alcohol and Drug Abuse Patient Records regulations: The Federal rules restrict any use of the information to criminally investigate or prosecute any alcohol or drug abuse patient.[facility] HospitalIn the event this information is protected by the Federal Confidentiality of Alcohol and Drug Abuse Patient Records regulations: The Federal rules restrict any use of the information to criminally investigate or prosecute any alcohol or drug abuse patient.[facility] HospitalIn the event this information is protected by the Federal Confidentiality of Alcohol and Drug Abuse Patient Records regulations: The Federal rules restrict any use of the information to criminally investigate or prosecute any alcohol or drug abuse patient.[facility] HospitalIn the event this information is protected by the Federal Confidentiality of Alcohol and Drug Abuse Patient Records regulations: The Federal rules restrict any use of the information to criminally investigate or prosecute any alcohol or drug abuse patient.[facility] HospitalIn the event this information is protected by the Federal Confidentiality of Alcohol and Drug Abuse Patient Records regulations: The Federal rules restrict any use of the information to criminally investigate or prosecute any alcohol or drug abuse patient.[facility] HospitalIn the event this information is protected by the Federal Confidentiality of Alcohol and Drug Abuse Patient Records regulations: The Federal rules restrict any use of the information to criminally investigate or prosecute any alcohol or drug abuse patient.[facility] HospitalIn the event this information is protected by the Federal Confidentiality of Alcohol and Drug Abuse Patient Records regulations: The Federal rules restrict any use of the information to criminally investigate or prosecute any alcohol or drug abuse patient.[facility] HospitalIn the event this information is protected by the Federal Confidentiality of Alcohol and Drug Abuse Patient Records regulations: The Federal rules restrict any use of the information to criminally investigate or prosecute any alcohol or drug abuse patient.[facility] HospitalIn the event this information is protected by the Federal Confidentiality of Alcohol and Drug Abuse Patient Records regulations: The Federal rules restrict any use of the information to criminally investigate or prosecute any alcohol or drug abuse patient.[facility] HospitalIn the event this information is protected by the Federal Confidentiality of Alcohol and Drug Abuse Patient Records regulations: The Federal rules restrict any use of the information to criminally investigate or prosecute any alcohol or drug abuse patient.[facility] HospitalIn the event this information is protected by the Federal Confidentiality of Alcohol and Drug Abuse Patient Records regulations: The Federal rules restrict any use of the information to criminally investigate or prosecute any alcohol or drug abuse patient.[facility] HospitalIn the event this information is protected by the Federal Confidentiality of Alcohol and Drug Abuse Patient Records regulations: The Federal rules restrict any use of the information to criminally investigate or prosecute any alcohol or drug abuse patient.[facility] HospitalIn the event this information is protected by the Federal Confidentiality of Alcohol and Drug Abuse Patient Records regulations: The Federal rules restrict any use of the information to criminally investigate or prosecute any alcohol or drug abuse patient.[facility] HospitalIn the event this information is protected by the Federal Confidentiality of Alcohol and Drug Abuse Patient Records regulations: The Federal rules restrict any use of the information to criminally investigate or prosecute any alcohol or drug abuse patient.[facility] HospitalIn the event this information is protected by the Federal Confidentiality of Alcohol and Drug Abuse Patient Records regulations: The Federal rules restrict any use of the information to criminally investigate or prosecute any alcohol or drug abuse patient.[facility] HospitalIn the event this information is protected by the Federal Confidentiality of Alcohol and Drug Abuse Patient Records regulations: The Federal rules restrict any use of the information to criminally investigate or prosecute any alcohol or drug abuse patient.[facility] HospitalIn the event this information is protected by the Federal Confidentiality of Alcohol and Drug Abuse Patient Records regulations: The Federal rules restrict any use of the information to criminally investigate or prosecute any alcohol or drug abuse patient.[facility] HospitalIn the event this information is protected by the Federal Confidentiality of Alcohol and Drug Abuse Patient Records regulations: The Federal rules restrict any use of the information to criminally investigate or prosecute any alcohol or drug abuse patient.[facility] HospitalIn the event this information is protected by the Federal Confidentiality of Alcohol and Drug Abuse Patient Records regulations: The Federal rules restrict any use of the information to criminally investigate or prosecute any alcohol or drug abuse patient.[facility] HospitalIn the event this information is protected by the Federal Confidentiality of Alcohol and Drug Abuse Patient Records regulations: The Federal rules restrict any use of the information to criminally investigate or prosecute any alcohol or drug abuse patient.[facility] HospitalIn the event this information is protected by the Federal Confidentiality of Alcohol and Drug Abuse Patient Records regulations: The Federal rules restrict any use of the information to criminally investigate or prosecute any alcohol or drug abuse patient.[facility] HospitalIn the event this information is protected by the Federal Confidentiality of Alcohol and Drug Abuse Patient Records regulations: The Federal rules restrict any use of the information to criminally investigate or prosecute any alcohol or drug abuse patient.[facility] HospitalIn the event this information is protected by the Federal Confidentiality of Alcohol and Drug Abuse Patient Records regulations: The Federal rules restrict any use of the information to criminally investigate or prosecute any alcohol or drug abuse patient.[facility] HospitalIn the event this information is protected by the Federal Confidentiality of Alcohol and Drug Abuse Patient Records regulations: The Federal rules restrict any use of the information to criminally investigate or prosecute any alcohol or drug abuse patient.[facility] HospitalIn the event this information is protected by the Federal Confidentiality of Alcohol and Drug Abuse Patient Records regulations: The Federal rules restrict any use of the information to criminally investigate or prosecute any alcohol or drug abuse patient.[facility] HospitalIn the event this information is protected by the Federal Confidentiality of Alcohol and Drug Abuse Patient Records regulations: The Federal rules restrict any use of the information to criminally investigate or prosecute any alcohol or drug abuse patient.[facility] HospitalIn the event this information is protected by the Federal Confidentiality of Alcohol and Drug Abuse Patient Records regulations: The Federal rules restrict any use of the information to criminally investigate or prosecute any alcohol or drug abuse patient.[facility] HospitalIn the event this information is protected by the Federal Confidentiality of Alcohol and Drug Abuse Patient Records regulations: The Federal rules restrict any use of the information to criminally investigate or prosecute any alcohol or drug abuse patient.[facility] Goals (unrecognized section and content) Goals may be documented in a n alternate sectionGoals may be documented in an alternate sectionGoals may be documented in an alternate section Reason for Visit (unrecogniz ed section and content) Reason Comments Asthma Lung Eval States in 2018, his ct showed he has a mass. He is unsure about this. States at night, he feels more short of breath. Reason Comments Appointment Reason Comments Appointment Lm for pt to call of fice to schedule follow up [id number] Reason Comments New Patient Referall from Dr. Salvador francisco Shortness of Breath Chest Pain asthma Syncope positional Headache Due to head trauma Reason Comments Appointment CTA Reason Comments Results Echo Reason Comments Patient Question Reason Comments Patient Update Reason Comments Patient Question Patient Update Reason Comments Follow Up sob Reason Comments Results Reason Comments Event monitor neds interpreted Reason Comments Event monitor needs interpreted Reason Comments Refill Request Care Teams (unrecognized sec tion and content) Form Grader Operator Relationship Specialty Start Date End Date Shannan Wilburn [address] [place] [id number] PCP - General Internal Medicine 02/14/23 Form Grader Operator Relationship Specialty Start Date End Date Shannan Wilburn [address] [place] [id number] PCP - General Internal Medicine 02/14/23 Form Grader Operator Relationship Specialty Start Date End Date Shannan Wilburn [address] [place] [id number] PCP - General Internal Medicine 02/14/23 Form Grader Operator Relationship Specialty Start Date End Date Shannan Wilburn [address] [place] [id number] PCP - General Internal Medicine 02/14/23 Form Grader Operator Relationship Specialty Start Date End Date Shannan Wiblurn [address] [place] [address] [id number] PCP - General Internal Medicine 02/14/23 Form Grader Operator Relationship Specialty Start Date End Date Shannan Wilburn [address] [place] [address] [id number] PCP - General Internal Medicine 02/14/23 Form Grader Operator Relationship Specialty Start Date End Date Shannan Wilburn [address] [place] [address] [id number] PCP - General Internal Medicine 02/14/23 Form Grader Operator Relationship Specialty Start Date End Date Shannan Wilburn [address] [place] [address] [id number] PCP - General Internal Medicine 02/14/23 Form Grader Operator Relationship Specialty Start Date End Date Shannan Wilburn [address] [place] [address] [id number] PCP - General Internal Medicine 02/14/23 Form Grader Operator Relationship Specialty Start Date End Date Shannan Wilburn [address] [place] [address] [id number] PCP - General Internal Medicine 02/14/23 Form Grader Operator Relationship Specialty Start Date End Date Shannan Wilburn [address] [place] [address] [id number] PCP - General Internal Medicine 02/14/23 Form Grader Operator Relationship Specialty Start Date End Date Shannan Wilburn CRNP [address] [place] [address] [id number] PCP - General Internal Medicine 02/14/23 Form Grader Operator Relationship Specialty Start Date End Date Shannan Wilburn CRNP [address] [place] [address] [id number] PCP - General Internal Medicine 02/14/23 Form Grader Operator Relationship Specialty Start Date End Date Shannan Wilburn CRNP [address] [place] [address] [id number] PCP - General Internal Medicine 02/14/23 Form Grader Operator Relationship Specialty Start Date End Date Shannan Wilburn CRNP [address] [place] [address] [id number] PCP - General Internal Medicine 02/14/23 Form Grader Operator Relationship Specialty Start Date End Date Shannan Wilburn CRNP [address] [place] [address] [id number] PCP - General Internal Medicine 02/14/23 Form Grader Operator Relationship Specialty Start Date End Date Shannan Wilburn CRNP [address] [place] [address] [id number] PCP - General Internal Medicine 02/14/23 Form Grader Operator Relationship Specialty Start Date End Date Shannan Wilburn CRNP [address] [place] [address] [id number] PCP - General Internal Medicine 02/14/23 Form Grader Operator Relationship Specialty Start Date End Date Shannan Wilburn CRNP [address] [place] [address] [id number] PCP - General Internal Medicine 02/14/23 Form Grader Operator Relationship Specialty Start Date End Date Shannan Wilburn CRNP [address] [place] [address] [id number] PCP - General Internal Medicine 02/14/23 Form Grader Operator Relationship Specialty Start Date End Date Shannan Wilburn CRNP [address] [place] [address] [id number] PCP - General Internal Medicine 02/14/23 Form Grader Operator Relationship Specialty Start Date End Date Shannan Wilburn CRNP [address] [place] [address] [id number] PCP - General Internal Medicine 02/14/23 Form Grader Operator Relationship Specialty Start Date End Date Shannan Wilburn CRNP [address] [place] [address] [id number] PCP - General Internal Medicine 02/14/23 Form Grader Operator Relationship Specialty Start Date End Date Shannan Wilburn CRNP PCP - General Internal Medicine 02/14/23 Form Grader Operator Relationship Specialty Start Date End Date Shannan Wilburn CRNP PCP - General Internal Medicine 02/14/23 Form Grader Operator Relationship Specialty Start Date End Date Shannan Wilburn CRNP PCP - General Internal Medicine 02/14/23 Form Grader Operator Relationship Specialty Start Date End Date Shannan Wilburn CRNP PCP - General Internal Medicine 02/14/23 Form Grader Operator Relationship Specialty Start Date End Date Shannan Wilburn CRNP PCP - General Internal Medicine 02/14/23 Form Grader Operator Relationship Specialty Start Date End Date Shannan Wilburn CRNP PCP - General Internal Medicine 02/14/23 Form Grader Operator Relationship Specialty Start Date End Date Shannan Wilburn CRNP PCP - General Internal Medicine 02/14/23 Form Grader Operator Relationship Specialty Start Date End Date Shannan Wilburn CRNP PCP - General Internal Medicine 02/14/23 Form Grader Operator Relationship Specialty Start Date End Date Shannan Wilburn CRNP PCP - General Internal Medicine 02/14/23 Form Grader Operator Relationship Specialty Start Date End Date Shannan Wilburn CRNP PCP - General Internal Medicine 02/14/23 Form Grader Operator Relationship Specialty Start Date End Date Shannan Wilburn CRNP PCP - General Internal Medicine 02/14/23 Form Grader Operator Relationship Specialty Start Date End Date Shannan Wilburn CRNP PCP - General Internal Medicine 02/14/23 Team Status: Active Member Role Status Dates SHANNAN WILBURN Primary Care Provider Active Team Status: Inactive Member Role Status Dates Dr. Junior Ovalle MD Emergency Provider Active Start: October 31, 2024 End: October 31, 2024 COSMO PAZ Primary Care Provider Active Start: October 31, 2024 End: October 31, 2024 Team Status: Inactive Member Role Status Dates Dr. Junior Ovalle MD Attending Provider Active Start: October 31, 2024 End: October 31, 2024 Dr. Junior Ovalle MD Emergency Provider Active Start: October 31, 2024 End: October 31, 2024 COSMO PAZ Primary Care Provider Active Start: October 31, 2024 End: October 31, 2024 Team Status: Inactive Member Role Status Dates COSMO PAZ Primary Care Provider Active Start: December 04, 2024 End: December 04, 2024 Aaron Coronel MD Emergency Provider Active Star t: December 04, 2024 End: December 04, 2024 FOR RECORDS PERTAINING TO PATIENTS WHO ARE OR HAVE BEEN ENROLLED IN A CHEMICAL DEPENDENCY/SUBSTANCEABUSE PROGRAM, SOME INFORMATION MAY BE OMITTED. This clinical summary was aggregated from multiple sources. Caution should be exercised in using it in the provision of clinical care. This summary normalizes information from multiple sources, and as a consequence, information in this document may materially change the coding, format and clinical context of patient data. In addition, data may be omitted in some cases. CLINICAL DECISIONS SHOULD BE BASED ON THE PRIMARY CLINICAL RECORDS. [employer] [facility]. provides no warranty or guarantee of the accuracy or completeness of information in this document.
[2025-07-13] MEDS: Ketorolac 30 MG/ML Syringe IM (15:02)
--- NOTE | 2025-07-13 15:30 | EX.ED.DYSGE1 ---
HPI History of Present Illness Chief Complaint: Sore Throat Narrative Narrative: Patient is a 35-year-old male with past medical history of TBI who presents to the emergency department chief plaint sore throat. Patient states his sore throat started after his flu shot about a week ago. He states that he went to a concert last night and notes that after this he was feeling slightly worse prompting him to come here for further evaluation management. Patient states he has been eating and drinking. Denies any fevers. PFSH PFS Medical History Traumatic brain injury Home Medications Medication Instructions Recorded Last Taken Type mupirocin 2 % topical ointment 1 applic topical BID PRN skin 10/31/24 Unknown Rx infection #15 grams triamcinolone acetonide 55 mcg 1 spray intranasal DAILY #16.9 mL 12/04/24 Unknown Rx nasal spray aerosol (Nasacort) Allergy/AdvReac Type Severity Reaction Status Date / Time aspirin AdvReac Intermediate NOSEBLEEDS Verified 07/13/25 14:25 buspirone (From BuSpar) AdvReac Intermediate HALLUCINATI Verified 07/13/25 14:25 ONS acetaminophen (From Tylenol) AdvReac NOSEBLEEDS Verified 07/13/25 14:25 Surgical History Hx of eye surgery Social History Smoking Status: Never smoker ROS ROS ED ROS Narrative Constitutional: Denies any fevers, lightheadedness, dizziness Eyes, ears, nose, throat: Sore throat as noted above Neurological: Denies any numbness, weeks, tingling Musculoskeletal: Denies back pain Skin: Denies any rashes or lesions EXAM Physical Exam Narrative Exam Narrative: General: Patient was lying in bed rest comfortably did not appear to be in acute distress Head: Atraumatic, normocephalic Eyes, ears, nose, throat: PERRL bilaterally, EOMI bilaterally, no conjunctival injection noted, mild posterior pharynx erythema noted, no exudates noted uvula midline no concern for peritonsillar abscess Neck: Soft, supple, trachea midline, no concern for Bill's angina Cardiovascular: Regular rate Extremities: +5/5 strength noted to bilateral lower extremities Neurological: Commands knew that he was at [facility] years 2024 Skin: Warm, dry, tact no rashes or lesions noted Const Vital Signs: 07/13/25 14:23 Temperature 97.0 F L Temperature Source Temporal Pulse Rate 99 Respiratory Rate 16 Blood Pressure 124/79 H Blood Pressure Mean 94 Pulse Ox 98 Oxygen Delivery Method Room Air MDM MDM MDM Narrative Medical decision making narrative: Patient is a 35-year-old male who presents to the emergency department chief complaint of sore throat. On the differential diagnose includes but not made to viral pharyngitis, strep throat, peritonsillar abscess although have low suspicion for this. Once workup is obtained reviewed he will be reevaluated. Patient be given Toradol and Decadron. Patient's strep test was negative. Patient is feeling better he was advised that the steroids will continue to work over the next several days and he should follow-up with his doctor in the outpatient setting continue supportive care. He is vies to return with worsening symptoms or any concerns. He is agreeable to plan all course concerns answered is discharged home in stable condition Discharge Plan Triage Chief Complaint: Sore Throat ED Provider: Ricky Smith Dx/Rx/DC Orders Clinical Impression: Sore throat, Acute viral pharyngitis Prescriptions: No Action mupirocin 2 % ointment 1 applic topical BID PRN (Reason: skin infection) Qty: 15 0RF triamcinolone acetonide [Nasacort] 55 mcg aerosol,spray 1 spray intranasal DAILY Qty: 16.9 0RF Rx Instructions: administer into each nostril Primary Care Provider: JACKSON VELASQUEZ Referrals: JACKSON VELASQUEZ [Other] Activity Restrictions/Additional Instructions: Your strep test was negative. Follow-up with your doctor in outpatient setting and return with worsening symptoms or any other concerns Print Language: French Disposition Disposition: Home, Self Care
[2025-07-13 16:27] VITALS: BP 132/81; PULSE 84; RESP 16; TEMP 36.7; O2SAT 99
== END 2025-07-13 16:29 | disposition home or self-care (01) ==
PROVIDERS: Emergency Provider Emergency Medicine; Visit Provider Emergency Medicine
DX: J02.9 Acute pharyngitis, unspecified (principal)
CPT/HCPCS: 87651; 96372; 99282